=== PATIENT | male | born 1965 | race African-American/Black ===

== ENCOUNTER 2017-02-15 20:14 | Emergency (ER) | payer SELFPAY ==
[~2017-02-15] VITALS: Ht 175.3 cm; Wt 111.1 kg
[2017-02-15 20:29] VITALS: BP 175/86
--- NOTE | 2017-02-15 20:44 | PHYS DOC ---
Past Medical History Past Medical History: Diabetes-Type II Adult General Chief Complaint Chief Complaint: WOUND CHECK HPI HPI Patient is a 51 year old male with history of diabetes type 2 who presents today complaining of an infected wound on the left third toe that he noted 2 or 3 days ago after he cut his toe. Patient denies any fever. He states is on diabetic medicines and his blood glucose runs in the 140s. Patient has neuropathy and cannot feel his toes. Review of Systems Review of Systems Constitutional: Denies fever or chills [] Eyes: Denies change in visual acuity, redness, or eye pain [] HENT: Denies nasal congestion or sore throat [] Respiratory: Denies cough or shortness of breath [] Cardiovascular: No additional information not addressed in HPI [] GI: Denies abdominal pain, nausea, vomiting, bloody stools or diarrhea [] : Denies dysuria or hematuria [] Musculoskeletal: Denies back pain or joint pain [] Integument: Infected left third toe Neurologic: Denies headache, focal weakness or sensory changes [] All other systems were reviewed and found to be within normal limits, except as documented in this note. Current Medications Current Medications Current Medications Medications (Trade) Dose Ordered Sig/Solomon Start Time Stop Time Status Last Admin Dose Admin Diphtheria/ Tetanus/Acell Pertussis (Boostrix) 0.5 ml ONCE ONCE 02/15/17 20:45 02/15/17 20:46 DC Allergies Allergies Allergies Coded Allergies Type Severity Reaction Last Updated Verified No Known Drug Allergies 02/15/17 No Physical Exam Physical Exam Constitutional: Well developed, well nourished, no acute distress, non-toxic appearance. [] HENT: Normocephalic, atraumatic, bilateral external ears normal, oropharynx moist, no oral exudates, nose normal. [] Eyes: PERRLA, EOMI, conjunctiva normal, no discharge. [] Neck: Normal range of motion, no tenderness, supple, no stridor. [] Cardiovascular:Heart rate regular rhythm, no murmur [] Lungs & Thorax: Bilateral breath sounds clear to auscultation [] Abdomen: Bowel sounds normal, soft, no tenderness, no masses, no pulsatile masses. [] Skin: Warm, patient has a tiny 0.5X0.5 wound under the left third toe, the wound appears infected. It is yellow with trace erythema and no drainage. Patient has neuropathy and cannot feel his toes. +2 left pedal pulse. Back: No tenderness, no CVA tenderness. [] Extremities: No tenderness, no cyanosis, no clubbing, ROM intact, no edema. [] Neurologic: Alert and oriented X 3, normal motor function, normal sensory function, no focal deficits noted. [] Psychologic: Affect normal, judgement normal, mood normal. [] EKG EKG [] Radiology/Procedures Radiology/Procedures [] Course & Med Decision Making Course & Med Decision Making Pertinent Labs and Imaging studies reviewed. (See chart for details) Patient has infected left third toe. He has history of diabetes. This is a stage I wound. Patient was discharged on clindamycin. He was instructed to keep the wound clean and dry. I recommended he contact his PCP and set up a follow- up appointment in 1-3 days. He was given tetanus in the ED. Dragon Disclaimer Dragon Disclaimer This electronic medical record was generated, in whole or in part, using a voice recognition dictation system. Departure Departure Impression: Primary Impression: Toe infection Disposition: 01 HOME, SELF-CARE Condition: STABLE Referrals: [facility] (PCP) follow up in 1-3 days Patient Instructions: Skin Infections Additional Instructions: You were seen for an infected left third toe. Please complete your antibiotics. Contact your own doctor and follow-up in 1-3 days. Return to the emergency room if symptoms worsen. Scripts Clindamycin Hcl (CLINDAMYCIN HCL) 150 Mg Capsule 3 CAP PO TID, #90 CAP Prov: DANISH COLORADO APRN 02/15/17 DANISH COLORADO APRN Feb 15, 2017 20:44
[2017-02-15] MEDS ORDERED: DIPHTH,PERTUSS(ACELL),TET TOX 0.5 ML DISP.SYRIN. VAX IM ONE (20:45)
[2017-02-15] MEDS ORDERED: CLIN150C14 PO (20:52)
== END 2017-02-15 20:59 | disposition home or self-care (01) ==
LOC: ER 20:14
DX: L08.89 Other specified local infections of the skin and subcutaneous tissue (principal); E11.9 Type 2 diabetes mellitus without complications
CPT/HCPCS: 90471; 90715; 99283-25

== ENCOUNTER 2017-09-20 10:05 | Inpatient (IN) | payer OTHER ==
[2017-09-20 10:39] LABS: ADD MAN DIFF? NO
[2017-09-20 10:41] LABS: BASO # 0.1 x10^3/uL (0.0-0.2); BASO % 1 % (0-3); EOS # 0.5 x10^3/uL (0.0-0.7); EOS % 6 % (0-3); HEMATOCRIT 21.8 % (39.0-53.0); HEMOGLOBIN 7.5 g/dL (13.0-17.5); LYMPH # 0.6 x10^3/uL (1.0-4.8); LYMPH % 7 % (24-48); MEAN CORPUSCULAR HEMOGLOBIN 31 pg (25-35); MEAN CORPUSCULAR HGB CONC 34 g/dL (31-37); MEAN CORPUSCULAR VOLUME 91 fL (79-100); MONO # 0.5 x10^3/uL (0.0-1.1); MONO % 6 % (0-9); NEUT # 6.5 x10^3uL (1.8-7.7); NEUT % 80 % (31-73); PLATELET COUNT 244 x10^3/uL (140-400); RED BLOOD COUNT 2.41 x10^6/uL (4.30-5.70); RED CELL DISTRIBUTION WIDTH 18.6 % (11.5-14.5); WHITE BLOOD COUNT 8.1 x10^3/uL (4.0-11.0)
[2017-09-20 10:57] LABS: ANION GAP 10 (6-14); BLOOD UREA NITROGEN 90 mg/dL (8-26); BUN/CREATININE RATIO 16 (6-20); CARBON DIOXIDE 26 mmol/L (21-32); CHLORIDE 103 mmol/L (98-107); CREATININE 5.6 mg/dL (0.7-1.3); GLUCOSE 151 mg/dL (70-99); POTASSIUM 4.7 mmol/L (3.5-5.1); SODIUM 139 mmol/L (136-145)
[2017-09-20 11:00] LABS: ALBUMIN 3.2 g/dL (3.4-5.0); ALBUMIN/GLOBULIN RATIO 0.6 (1.0-1.7); ALK PHOS 104 U/L (46-116); ALT (SGPT) 28 U/L (16-63); AST (SGOT) 22 U/L (15-37); TOTAL BILIRUBIN 0.6 mg/dL (0.2-1.0); TOTAL PROTEIN 8.5 g/dL (6.4-8.2)
[2017-09-20] MEDS ORDERED: ACETAMINOPHEN 325 MG TABLET. PO ×2 (11:15→15:30)
[2017-09-20] MEDS ORDERED: fentaNYL PF VIAL 100 MCG/2 ML VIAL IV (11:15)
[2017-09-20] MEDS ORDERED: ONDANSETRON PF 4 MG/2 ML VIAL. IV ×2 (11:15→15:30)
[2017-09-20 14:02] LABS: POC GLUCOSE 132 mg/dL (70-99)
[2017-09-20] MEDS ORDERED: IV NORMAL SALINE 1000ML BAG 1,000 ML IV ×2 (14:24)
[2017-09-20] MEDS ORDERED: DIALYSIS PATIENT. MC ×2 (14:30)
[2017-09-20] MEDS ORDERED: traMADol 50 MG TABLET PO (15:30)
[2017-09-20] MEDS ORDERED: hydrALAZINE 20 MG/ML VIAL. IVP (15:30)
[2017-09-20] MEDS ORDERED: DOCUSATE SODIUM 100 MG CAPSULE. PO (15:30)
[2017-09-20] MEDS ORDERED: MORPHINE SULFATE 2 MG/ML DISP.SYRIN. IV (15:30)
[2017-09-20 16:32] LABS: HEPATITIS B SURFACE AG Nonreactive (Nonreactive)
[2017-09-20 16:44] LABS: HEPATITIS B SURFACE AB Nonreactive
[2017-09-20 18:15] LABS: TROPONINI < 0.017 ng/mL (0.000-0.055)
[2017-09-20 20:22] LABS: POC GLUCOSE 82 mg/dL (70-99)
[2017-09-20] MEDS: FUROSEMIDE 80 MG TABLET. PO (21:13)
[2017-09-20] MEDS: CALCIUM ACETATE 667 MG CAPSULE PO (21:13)
[2017-09-20] MEDS: CARVEDILOL 12.5 MG TABLET. PO (21:14)
[2017-09-20] MEDS: FERROUS SULFATE 325 MG TABLET. PO (21:14)
[2017-09-20] MEDS: ATORVASTATIN CALCIUM 20 MG TABLET PO (21:14)
[2017-09-20] MEDS: FOLIC ACID 1 MG TABLET. PO (21:14)
[2017-09-21 07:13] LABS: POC GLUCOSE 107 mg/dL (70-99)
[2017-09-21] MEDS: FERROUS SULFATE 325 MG TABLET. PO (08:00)
[2017-09-21] MEDS: CARVEDILOL 12.5 MG TABLET. PO (08:41)
[2017-09-21] MEDS: FUROSEMIDE 80 MG TABLET. PO (08:41)
[2017-09-21] MEDS: CALCIUM ACETATE 667 MG CAPSULE PO ×2 (08:41→11:50)
[2017-09-21] MEDS: FOLIC ACID 1 MG TABLET. PO (08:41)
[2017-09-27] MEDS ORDERED: cloNIDine TTS-1 1 PATCH PATCH.TDWK TD (09:00)
== END 2017-09-21 16:40 | disposition home or self-care (01) | DRG 291 ==
LOC: ER 10:05 → 5 SOUTH 11:07
PROC: 5A1D70Z Performance of Urinary Filtration, Intermittent, Less than 6 Hours Per Day (ICD-10-PCS; principal; 2017-09-20)
DX: I13.2 Hypertensive heart and chronic kidney disease with heart failure and with stage 5 chronic kidney disease, or end stage renal disease (principal); N18.6 End stage renal disease; E11.40 Type 2 diabetes mellitus with diabetic neuropathy, unspecified; D64.9 Anemia, unspecified; E11.22 Type 2 diabetes mellitus with diabetic chronic kidney disease; K21.9 Gastro-esophageal reflux disease without esophagitis; E21.3 Hyperparathyroidism, unspecified; I50.9 Heart failure, unspecified; E11.69 Type 2 diabetes mellitus with other specified complication; E11.42 Type 2 diabetes mellitus with diabetic polyneuropathy; D47.2 Monoclonal gammopathy; Z90.81 Acquired absence of spleen; Z89.411 Acquired absence of right great toe; Z89.432 Acquired absence of left foot; Z79.4 Long term (current) use of insulin; Z98.49 Cataract extraction status, unspecified eye; Z99.2 Dependence on renal dialysis; Z83.3 Family history of diabetes mellitus; Z82.49 Family history of ischemic heart disease and other diseases of the circulatory system
CPT/HCPCS: 36415; 80053; 82962; 84484; 85025; 86706; 87340; 99285; 99285-25

== ENCOUNTER 2017-11-22 21:08 | Inpatient (IN) | payer OTHER ==
[~2017-11-22] VITALS: Ht 175.3 cm; Wt 96.2 kg
[~2017-11-22 21:08] MED LIST: ALLO300T PO; ASCO500T3 PO; ATOR20TA PO; CARV25TA2 PO; CLIN150C14 PO; CLON0.1T PO; CLON1PAT9 TD; Calcium Acetate PO; ERGO500027 PO; FERR325T14 PO; FOLI1TAB16 PO; FURO80TA3 PO; INSU100V8 SQ; LEVO500T59 PO; LISI-130 PO; NIFE60TA PO; POTA20TA82 PO; TADA5TAB PO
--- NOTE | 2017-11-22 22:15 | PHYS DOC ---
Past Medical History Past Medical History: Anemia, Diabetes-Type II, Renal Disease Additional Past Medical Histor: CATARACTS, NEUROPATHY, ERECTILE DYSFUNCTION, ELLIPTOCYTOSIS Past Surgical History: Splenectomy, Other Additional Past Surgical Histo: DIALYSIS SHUNT RIGHT CHEST, R GREAT TOE AMP, PARTIAL L FOOT AMP Alcohol Use: None Drug Use: None Adult General Chief Complaint Chief Complaint: WEAKNESS/GENERALIZED HPI HPI Patient is a 52 year old male with history of anemia, end-stage renal disease, last dialyzed on Tuesday last week who presents today with 2 complaints. Patient states he received a call from his doctor's office who informed him his hemoglobin was 5. Patient is here for transfusion. Patient is also complaining of infection to the right second toe. Patient states he noted drainage from the toe for couple days. Patient denies any fever. Review of Systems Review of Systems Constitutional: Denies fever or chills [] Eyes: Denies change in visual acuity, redness, or eye pain [] HENT: Denies nasal congestion or sore throat [] Respiratory: Denies cough or shortness of breath [] Cardiovascular: Reports anemia. No additional information not addressed in HPI [ ] GI: Denies abdominal pain, nausea, vomiting, bloody stools or diarrhea [] : Denies dysuria or hematuria [] Musculoskeletal: Denies back pain or joint pain [] Integument: Reports infection to the right second toe. Neurologic: Denies headache, focal weakness or sensory changes [] All other systems were reviewed and found to be within normal limits, except as documented in this note. Allergies Allergies Allergies Coded Allergies Type Severity Reaction Last Updated Verified No Known Drug Allergies 09/05/17 No Physical Exam Physical Exam Constitutional: Well developed, well nourished, no acute distress, non-toxic appearance. [] HENT: Normocephalic, atraumatic, bilateral external ears normal, oropharynx moist, no oral exudates, nose normal. [] Eyes: PERRLA, EOMI, conjunctiva normal, no discharge. [] Neck: Normal range of motion, no tenderness, supple, no stridor. [] Cardiovascular:Heart rate regular rhythm, no murmur [] Lungs & Thorax: Bilateral breath sounds clear to auscultation [] Abdomen: Bowel sounds normal, soft, no tenderness, no masses, no pulsatile masses. [] Skin: Warm, dry, right great toe is amputated, right second toe tip with an open wound approximately 1 x 1 cm the center is erythematous. There is surrounding yellowness to the tip of the toe. No drainage. there is another skin tear approx. 1x1cm to the side of the left second toe. No warmth to the toe. Could be chronic toe ulcer Back: No tenderness, no CVA tenderness. [] Extremities: No tenderness, no cyanosis, no clubbing, ROM intact, no edema. [] Neurologic: Alert and oriented X 3, normal motor function, normal sensory function, no focal deficits noted. [] Psychologic: Affect normal, judgement normal, mood normal. [] Current Patient Data Vital Signs Vital Signs Date Time Temp Pulse Resp B/P (MAP) Pulse Ox O2 Delivery O2 Flow Rate FiO2 11/22/17 21:50 99.4 81 16 119/56 (77) 100 Nasal Cannula 2.0 99.4 Lab Values Laboratory Tests Test 11/22/17 21:55 White Blood Count 6.9 x10^3/uL (4.0-11.0) Red Blood Count 1.87 x10^6/uL (4.30-5.70) L Hemoglobin 5.9 g/dL (13.0-17.5) *L Hematocrit 17.3 % (39.0-53.0) *L Mean Corpuscular Volume 92 fL (79-100) Mean Corpuscular Hemoglobin 31 pg (25-35) Mean Corpuscular Hemoglobin Concent 34 g/dL (31-37) Red Cell Distribution Width 27.1 % (11.5-14.5) H Platelet Count 292 x10^3/uL (140-400) Neutrophils (%) (Auto) 74 % (31-73) H Lymphocytes (%) (Auto) 9 % (24-48) L Monocytes (%) (Auto) 10 % (0-9) H Eosinophils (%) (Auto) 5 % (0-3) H Basophils (%) (Auto) 1 % (0-3) Neutrophils # (Auto) 5.2 x10^3uL (1.8-7.7) Lymphocytes # (Auto) 0.7 x10^3/uL (1.0-4.8) L Monocytes # (Auto) 0.7 x10^3/uL (0.0-1.1) Eosinophils # (Auto) 0.4 x10^3/uL (0.0-0.7) Basophils # (Auto) 0.1 x10^3/uL (0.0-0.2) Platelet Estimate Adequate (ADEQUATE) Giant Platelets Few Polychromasia Slight Anisocytosis Marked Microcytosis Slight Macrocytosis Slight Tear Drop Cells Few Ovalocytes Few Schistocytes Occ Erythrocyte Sedimentation Rate 41 (0-15) H Sodium Level 144 mmol/L (136-145) Potassium Level 3.8 mmol/L (3.5-5.1) Chloride Level 109 mmol/L (98-107) H Carbon Dioxide Level 20 mmol/L (21-32) L Anion Gap 15 (6-14) H Blood Urea Nitrogen 71 mg/dL (8-26) H Creatinine 6.3 mg/dL (0.7-1.3) H Estimated GFR (Cockcroft-Gault) 11.4 BUN/Creatinine Ratio 11 (6-20) Glucose Level 107 mg/dL (70-99) H Calcium Level 6.5 mg/dL (8.5-10.1) L Total Bilirubin 0.6 mg/dL (0.2-1.0) Aspartate Amino Transferase (AST) 23 U/L (15-37) Alanine Aminotransferase (ALT) 35 U/L (16-63) Alkaline Phosphatase 94 U/L (46-116) C-Reactive Protein, Quantitative 15.3 mg/L (0-3.3) H Total Protein 8.1 g/dL (6.4-8.2) Albumin 3.5 g/dL (3.4-5.0) Albumin/Globulin Ratio 0.8 (1.0-1.7) L Laboratory Tests 11/22/17 21:55 Laboratory Tests 11/22/17 21:55 EKG EKG [] Radiology/Procedures Radiology/Procedures []PROCEDURE: FOOT RIGHT 3V Indication:INFECTED 2ND DIGIT OF RIGHT FOOT TECHNIQUE: 3 views of the right foot COMPARISON:None FINDINGS: Status post partial amputation of the first metatarsal. No acute fracture or dislocation. No periosteal reaction or cortical erosion. No soft tissue emphysema. Mild midfoot arthritis. Basilar calcifications suggesting atherosclerotic disease. IMPRESSION: 1. No radiographic evidence of acute osteoarthritis. 2. No soft tissue emphysema. Electronically signed by: Kal Hirsch DO (11/22/2017 10:52 PM) [facility] DICTATED and SIGNED BY: KAL HIRSCH DO DATE: 11/22/17 6185 Course & Med Decision Making Course & Med Decision Making Pertinent Labs and Imaging studies reviewed. (See chart for details) This is a 52-year-old male patient with history of anemia, end-stage renal's disease, presenting today complaining of low hemoglobin 5. Also complaining of possible infection to the right second toe. CBC with a normal WBC, hemoglobin 5.8, hematocrit 17.3, potassium 3.8, creatinine 6.3 BUN 71. Right foot x-rays interpreted by radiologist were negative for any acute findings. 2 units of blood ordered for transfusion. Consulted with Dr. Liang who accepted patient for admission. Consulted also placed for cost and risk analysis manager. Dragon Disclaimer Dragon Disclaimer This electronic medical record was generated, in whole or in part, using a voice recognition dictation system. Departure Departure Impression: Primary Impression: ESRD (end stage renal disease) Additional Impressions: Anemia Toe infection Disposition: 09 ADMITTED INPATIENT Condition: STABLE Referrals: NO PCP (PCP) Problem Qualifiers Additional Impressions: Anemia Anemia type: unspecified type Qualified Codes: D64.9 - Anemia, unspecified DANISH COLORADO CONTROL TECHNICIAN Nov 22, 2017 22:15
[2017-11-22 22:20] LABS: BASO # 0.1 x10^3/uL (0.0-0.2); BASO % 1 % (0-3); EOS # 0.4 x10^3/uL (0.0-0.7); EOS % 5 % (0-3); LYMPH # 0.7 x10^3/uL (1.0-4.8); LYMPH % 9 % (24-48); MEAN CORPUSCULAR HEMOGLOBIN 31 pg (25-35); MEAN CORPUSCULAR HGB CONC 34 g/dL (31-37); MEAN CORPUSCULAR VOLUME 92 fL (79-100); MONO # 0.7 x10^3/uL (0.0-1.1); MONO % 10 % (0-9); NEUT # 5.2 x10^3uL (1.8-7.7); NEUT % 74 % (31-73); PLATELET COUNT 292 x10^3/uL (140-400); RED BLOOD COUNT 1.87 x10^6/uL (4.30-5.70); RED CELL DISTRIBUTION WIDTH 27.1 % (11.5-14.5); WHITE BLOOD COUNT 6.9 x10^3/uL (4.0-11.0)
[2017-11-22 22:23] LABS: HEMATOCRIT 17.3 % (39.0-53.0); HEMOGLOBIN 5.9 g/dL (13.0-17.5)
[2017-11-22 22:36] LABS: CALCIUM 6.5 mg/dL (8.5-10.1); CREATININE 6.3 mg/dL (0.7-1.3); GFR 11.4; POTASSIUM 3.8 mmol/L (3.5-5.1)
[2017-11-22 22:42] LABS: ALBUMIN 3.5 g/dL (3.4-5.0); ALBUMIN/GLOBULIN RATIO 0.8 (1.0-1.7); C-REACTIVE PROTEIN 15.3 mg/L (0-3.3); TOTAL BILIRUBIN 0.6 mg/dL (0.2-1.0); TOTAL PROTEIN 8.1 g/dL (6.4-8.2)
--- NOTE | 2017-11-22 22:56 | RAD ---
Indication:INFECTED 2ND DIGIT OF RIGHT FOOT TECHNIQUE: 3 views of the right foot COMPARISON:None FINDINGS: Status post partial amputation of the first metatarsal. No acute fracture or dislocation. No periosteal reaction or cortical erosion. No soft tissue emphysema. Mild midfoot arthritis. Basilar calcifications suggesting atherosclerotic disease. IMPRESSION: 1. No radiographic evidence of acute osteoarthritis. 2. No soft tissue emphysema. Electronically signed by: Kal Guillen DO (11/22/2017 10:52 PM) [facility]
[2017-11-22 22:57] LABS: ANISOCYTOSIS MARKED; MICROCYTOSIS SLIGHT; PLT ESTIMATE ADEQUATE (ADEQUATE); POLYCHROMASIA SLIGHT
[2017-11-22 22:58] LABS: OVALOCYTES FEW; SCHISTOCYTES OCC; TEAR DROP CELLS FEW
[2017-11-23] VITALS (17 sets, daily range): BP systolic 123–170; BP diastolic 64–86
[2017-11-23] MEDS ORDERED: MORPHINE SULFATE 4 MG/ML VIAL. IV PRN (00:30)
[2017-11-23] MEDS ORDERED: ONDANSETRON PF 4 MG/2 ML VIAL. IV PRN (00:30)
[2017-11-23 06:43] LABS: HEMOGLOBIN 6.6 g/dL (13.0-17.5)
[2017-11-23] MEDS: ASCORBIC ACID 500 MG TABLET PO SCH (08:50)
[2017-11-23] MEDS: FUROSEMIDE 80 MG TABLET. PO SCH ×2 (08:50→17:09)
[2017-11-23] MEDS: FERROUS SULFATE 325 MG TABLET. PO SCH ×2 (08:50→20:49)
[2017-11-23] MEDS: CALCIUM ACETATE 667 MG CAPSULE PO SCH ×3 (08:50→17:09)
[2017-11-23] MEDS: FOLIC ACID 1 MG TABLET. PO SCH (08:50)
[2017-11-23] MEDS: CARVEDILOL 12.5 MG TABLET. PO SCH ×2 (08:51→17:09)
--- NOTE | 2017-11-23 12:21 | PDOC1 ---
History and Physical Date of Admission Date of Admission DATE: 11/23/17 TIME: 12:20 Source Source: Chart review, Patient History of Present Illness History of Present Illness Mr. Kang, is a 52 year old male admit with right 2nd toe pain and small wound , and was sent to the ER by hisrenal doctor for anemia, Hgb 5 he has felt tired and weak, and has felt some dizzy when moving to standing position for the past few weeks. He last dialyzed on his toe has been painful despite chronic neuropathy, and he has notices serous drainage from the end of the toe for a few days Past Medical History Past Medical History history of anemia, end-stage renal disease, Cardiovascular: HTN CENTRAL NERVOUS SYSTEM: Periperal neuropathy GI: GERD Heme/Onc: Anemia NOS Renal/: Chronic renal insuff Endocrine: Diabetes, Hyperparathyroidism Past Surgical History Past Surgical History: Cataract Removal, Other Family History Family History: Diabetes, Hypertension Social History Smoke: No ALCOHOL: none Drugs: None Current Problem List Problem List Problems Medical Problems: (1) Toe infection Status: Acute Current Medications Current Medications Current Medications Ondansetron HCl (Zofran) 4 mg PRN Q8HRS PRN IV NAUSEA/VOMITING 1ST CHOICE; Start 11/23/17 at 00:30; Stop 11/24/17 at 00:29 Morphine Sulfate (Morphine Sulfate) 4 mg PRN Q2HR PRN IV SEVERE PAIN; Start at 00:30; Stop 11/24/17 at 00:29 Ascorbic Acid (Vitamin C) 500 mg DAILY PO Last administered on 11/23/17at 08:50 ; Start 11/23/17 at 09:00 Atorvastatin Calcium (Lipitor) 20 mg QHS PO ; Start 11/23/17 at 21:00 Ferrous Sulfate (Feosol) 325 mg BID PO Last administered on 11/23/17at 08:50; Start 11/23/17 at 09:00 Folic Acid (Folic Acid) 1 mg DAILY PO Last administered on 11/23/17at 08:50; Start 11/23/17 at 09:00 Furosemide (Lasix) 80 mg BID94 PO Last administered on 11/23/17at 08:50; Start 11/23/17 at 09:00 Carvedilol (Coreg) 50 mg BIDWMEALS PO Last administered on 11/23/17at 08:51; Start 11/23/17 at 08:00 Nifedipine (Procardia Xl) 60 mg DAILY PO Last administered on 11/23/17at 08:51; Start 11/23/17 at 09:00 Calcium Acetate (Phoslo) 1,334 mg TIDWMEALS PO Last administered on 11/23/17at 12:04; Start 11/23/17 at 08:00 Active Scripts Active [Calcium Acetate] 667 MG Capsule 1,334 Mg PO TIDWMEALS 30 Days Reported Ascorbic Acid 500 Mg Tablet 500 Mg PO Catapres-Tts 1 (Clonidine) 1 Each Patch.tdwk 1 Each TD QTU Lipitor (Atorvastatin Calcium) 20 Mg Tablet 20 Mg PO DAILY Carvedilol 25 Mg Tablet 50 Mg PO BIDWMEALS Vitamin D2 (Ergocalciferol (Vitamin D2)) 50,000 Unit Capsule 50,000 Unit PO QSU Ferrous Sulfate 325 Mg Tablet 325 Mg PO BID Folic Acid 1 Mg Tablet 1 Mg PO DAILY Procardia Xl (Nifedipine) 60 Mg Tab.er.24 60 Mg PO DAILY Furosemide 80 Mg Tablet 80 Mg PO BID Allergies Allergies: Coded Allergies: No Known Drug Allergies (Unverified , 09/05/17) ROS General: YES: Chills, Fatigue; No: Night Sweats, Malaise, Appetite, Other PSYCHOLOGICAL ROS: YES: Sleep disturbances; No: Anxiety, Behavioral Disorder, Concentration difficultie, Decreased libido , Depression, Disorientation, Hallucinations, Hostility, Irritablity, Memory difficulties, Mood Swings, Obsessive thoughts, Other Eyes: No Blurry vision, No Decreased vision, No Double vision, No Dry eyes, No Excessive tearing, No Eye Pain, No Itchy Eyes, No Loss of vision, No Photophobia , No Scotomata, No Uses contacts, No Uses glasses, No Other HEENT: No: Heacaches, Visual Changes, Hearing change, Nasal congestion, Nasal discharge, Oral lesions, Sinus pain, Sore Throat, Epistaxis, Sneezing, Snoring, Tinnitus, Vertigo, Vocal changes, Other Respiratory: No: Cough, Hemoptysis, Orthopnea, Pleuritic Pain, Shortness of breath, SOB with excertion, Sputum Changes, Stridor, Tachypnea, Wheezing, Other Cardiovascular: No Chest Pain, No Palpitations, No Orthopnea, No Paroxysmal Noc. Dyspnea, No Edema, No Lt Headedness, No Other Gastrointestinal: No Nausea, No Vomiting, No Abdominal Pain, No Diarrhea, No Constipation, No Melena, No Hematochezia, No Other Genitourinary: No Dysuria, No Frequency, No Incontinence, No Hematuria, No Retention, No Discharge, No Urgency, No Pain, No Flank Pain, No Other, No , No , No , No , No , No , No Musculoskeletal: Yes Joint Pain, Yes Joint Stiffness, Yes Muscular Weakness Neurological: No Behavorial Changes, No Bowel/Bladder ControlChng, No Confusion , No Dizziness, No Gait Disturbance, No Headaches, No Impaired Coord/balance, No Memory Loss, No Numbness/Tingling, No Seizures, No Speech Problems, No Tremors, No Visual Changes, No Weakness, No Other Skin: Yes Dry Skin; No Eczema, No Hair Changes, No Lumps, No Mole Changes, No Mottling, No Nail Changes, No Pruritus, No Rash, No Skin Lesion Changes, No Other, No Acne Physical Exam General: Alert, Oriented X3, Cooperative HEENT: Atraumatic, PERRLA Lungs: Clear to auscultation, Normal air movement Heart: S1S2, no gallops, no murmurs Extremities: No clubbing, Other (right second toe with wound on the tip of the toe, no surrouding erythema) Skin: No breakdown Neuro: Normal speech, Normal tone, Other (poor sensation to toes, has neuropathy) Psych/Mental Status: Mental status NL, Mood NL Vitals Vitals Vital Signs Date Time Temp Pulse Resp B/P (MAP) Pulse Ox O2 Delivery O2 Flow Rate FiO2 11/23/17 11:20 97.9 77 16 132/70 97.9 11/23/17 11:00 92 Room Air 11/23/17 08:00 2.0 Labs Labs Laboratory Tests Test 11/22/17 21:55 11/22/17 22:49 11/23/17 05:05 White Blood Count 6.9 x10^3/uL (4.0-11.0) Red Blood Count 1.87 x10^6/uL (4.30-5.70) Hemoglobin 5.9 g/dL (13.0-17.5) 6.6 g/dL (13.0-17.5) Hematocrit 17.3 % (39.0-53.0) 19.0 % (39.0-53.0) Mean Corpuscular Volume 92 fL (79-100) Mean Corpuscular Hemoglobin 31 pg (25-35) Mean Corpuscular Hemoglobin Concent 34 g/dL (31-37) 35 g/dL (31-37) Red Cell Distribution Width 27.1 % (11.5-14.5) Platelet Count 292 x10^3/uL (140-400) Neutrophils (%) (Auto) 74 % (31-73) Lymphocytes (%) (Auto) 9 % (24-48) Monocytes (%) (Auto) 10 % (0-9) Eosinophils (%) (Auto) 5 % (0-3) Basophils (%) (Auto) 1 % (0-3) Neutrophils # (Auto) 5.2 x10^3uL (1.8-7.7) Lymphocytes # (Auto) 0.7 x10^3/uL (1.0-4.8) Monocytes # (Auto) 0.7 x10^3/uL (0.0-1.1) Eosinophils # (Auto) 0.4 x10^3/uL (0.0-0.7) Basophils # (Auto) 0.1 x10^3/uL (0.0-0.2) Platelet Estimate Adequate (ADEQUATE) Giant Platelets Few Polychromasia Slight Anisocytosis Marked Microcytosis Slight Macrocytosis Slight Tear Drop Cells Few Ovalocytes Few Schistocytes Occ Erythrocyte Sedimentation Rate 41 (0-15) Sodium Level 144 mmol/L (136-145) Potassium Level 3.8 mmol/L (3.5-5.1) Chloride Level 109 mmol/L (98-107) Carbon Dioxide Level 20 mmol/L (21-32) Anion Gap 15 (6-14) Blood Urea Nitrogen 71 mg/dL (8-26) Creatinine 6.3 mg/dL (0.7-1.3) Estimated GFR (Cockcroft-Gault) 11.4 BUN/Creatinine Ratio 11 (6-20) Glucose Level 107 mg/dL (70-99) Calcium Level 6.5 mg/dL (8.5-10.1) Total Bilirubin 0.6 mg/dL (0.2-1.0) Aspartate Amino Transf (AST/SGOT) 23 U/L (15-37) Alanine Aminotransferase (ALT/SGPT) 35 U/L (16-63) Alkaline Phosphatase 94 U/L (46-116) C-Reactive Protein, Quantitative 15.3 mg/L (0-3.3) Total Protein 8.1 g/dL (6.4-8.2) Albumin 3.5 g/dL (3.4-5.0) Albumin/Globulin Ratio 0.8 (1.0-1.7) Lactic Acid Level 1.0 mmol/L (0.4-2.0) Laboratory Tests Test 11/22/17 21:55 11/22/17 22:49 11/23/17 05:05 White Blood Count 6.9 x10^3/uL (4.0-11.0) Red Blood Count 1.87 x10^6/uL (4.30-5.70) Hemoglobin 5.9 g/dL (13.0-17.5) 6.6 g/dL (13.0-17.5) Hematocrit 17.3 % (39.0-53.0) 19.0 % (39.0-53.0) Mean Corpuscular Volume 92 fL (79-100) Mean Corpuscular Hemoglobin 31 pg (25-35) Mean Corpuscular Hemoglobin Concent 34 g/dL (31-37) 35 g/dL (31-37) Red Cell Distribution Width 27.1 % (11.5-14.5) Platelet Count 292 x10^3/uL (140-400) Neutrophils (%) (Auto) 74 % (31-73) Lymphocytes (%) (Auto) 9 % (24-48) Monocytes (%) (Auto) 10 % (0-9) Eosinophils (%) (Auto) 5 % (0-3) Basophils (%) (Auto) 1 % (0-3) Neutrophils # (Auto) 5.2 x10^3uL (1.8-7.7) Lymphocytes # (Auto) 0.7 x10^3/uL (1.0-4.8) Monocytes # (Auto) 0.7 x10^3/uL (0.0-1.1) Eosinophils # (Auto) 0.4 x10^3/uL (0.0-0.7) Basophils # (Auto) 0.1 x10^3/uL (0.0-0.2) Platelet Estimate Adequate (ADEQUATE) Giant Platelets Few Polychromasia Slight Anisocytosis Marked Microcytosis Slight Macrocytosis Slight Tear Drop Cells Few Ovalocytes Few Schistocytes Occ Erythrocyte Sedimentation Rate 41 (0-15) Sodium Level 144 mmol/L (136-145) Potassium Level 3.8 mmol/L (3.5-5.1) Chloride Level 109 mmol/L (98-107) Carbon Dioxide Level 20 mmol/L (21-32) Anion Gap 15 (6-14) Blood Urea Nitrogen 71 mg/dL (8-26) Creatinine 6.3 mg/dL (0.7-1.3) Estimated GFR (Cockcroft-Gault) 11.4 BUN/Creatinine Ratio 11 (6-20) Glucose Level 107 mg/dL (70-99) Calcium Level 6.5 mg/dL (8.5-10.1) Total Bilirubin 0.6 mg/dL (0.2-1.0) Aspartate Amino Transf (AST/SGOT) 23 U/L (15-37) Alanine Aminotransferase (ALT/SGPT) 35 U/L (16-63) Alkaline Phosphatase 94 U/L (46-116) C-Reactive Protein, Quantitative 15.3 mg/L (0-3.3) Total Protein 8.1 g/dL (6.4-8.2) Albumin 3.5 g/dL (3.4-5.0) Albumin/Globulin Ratio 0.8 (1.0-1.7) Lactic Acid Level 1.0 mmol/L (0.4-2.0) VTE Prophylaxis Ordered VTE Prophylaxis Devices: Yes VTE Pharmacological Prophylaxi: No Assessment/Plan Assessment/Plan anemia symptomatic anemia, ellipsocytosis ESRD with anemia, now s/p 2 u PRBC Dm2, now off meds, diet controlled, has lost 40 lbs intentionally htn, chronic mild chronic diastolic CHF weakness and debility, acquired obesity, BMI 32 DIXON GARZA MD Nov 23, 2017 12:20
--- NOTE | 2017-11-23 13:12 | PDOC ---
Infectious Disease Note Vital Sign Vital Signs Vital Signs Date Time Temp Pulse Resp B/P (MAP) Pulse Ox O2 Delivery O2 Flow Rate FiO2 11/23/17 12:20 98.1 82 18 148/78 98.1 11/23/17 11:00 92 Room Air 11/23/17 08:00 2.0 Labs Lab Laboratory Tests Test 11/22/17 21:55 11/22/17 22:49 11/23/17 05:05 White Blood Count 6.9 x10^3/uL (4.0-11.0) Red Blood Count 1.87 x10^6/uL (4.30-5.70) Hemoglobin 5.9 g/dL (13.0-17.5) 6.6 g/dL (13.0-17.5) Hematocrit 17.3 % (39.0-53.0) 19.0 % (39.0-53.0) Mean Corpuscular Volume 92 fL (79-100) Mean Corpuscular Hemoglobin 31 pg (25-35) Mean Corpuscular Hemoglobin Concent 34 g/dL (31-37) 35 g/dL (31-37) Red Cell Distribution Width 27.1 % (11.5-14.5) Platelet Count 292 x10^3/uL (140-400) Neutrophils (%) (Auto) 74 % (31-73) Lymphocytes (%) (Auto) 9 % (24-48) Monocytes (%) (Auto) 10 % (0-9) Eosinophils (%) (Auto) 5 % (0-3) Basophils (%) (Auto) 1 % (0-3) Neutrophils # (Auto) 5.2 x10^3uL (1.8-7.7) Lymphocytes # (Auto) 0.7 x10^3/uL (1.0-4.8) Monocytes # (Auto) 0.7 x10^3/uL (0.0-1.1) Eosinophils # (Auto) 0.4 x10^3/uL (0.0-0.7) Basophils # (Auto) 0.1 x10^3/uL (0.0-0.2) Platelet Estimate Adequate (ADEQUATE) Giant Platelets Few Polychromasia Slight Anisocytosis Marked Microcytosis Slight Macrocytosis Slight Tear Drop Cells Few Ovalocytes Few Schistocytes Occ Erythrocyte Sedimentation Rate 41 (0-15) Sodium Level 144 mmol/L (136-145) Potassium Level 3.8 mmol/L (3.5-5.1) Chloride Level 109 mmol/L (98-107) Carbon Dioxide Level 20 mmol/L (21-32) Anion Gap 15 (6-14) Blood Urea Nitrogen 71 mg/dL (8-26) Creatinine 6.3 mg/dL (0.7-1.3) Estimated GFR (Cockcroft-Gault) 11.4 BUN/Creatinine Ratio 11 (6-20) Glucose Level 107 mg/dL (70-99) Calcium Level 6.5 mg/dL (8.5-10.1) Total Bilirubin 0.6 mg/dL (0.2-1.0) Aspartate Amino Transf (AST/SGOT) 23 U/L (15-37) Alanine Aminotransferase (ALT/SGPT) 35 U/L (16-63) Alkaline Phosphatase 94 U/L (46-116) C-Reactive Protein, Quantitative 15.3 mg/L (0-3.3) Total Protein 8.1 g/dL (6.4-8.2) Albumin 3.5 g/dL (3.4-5.0) Albumin/Globulin Ratio 0.8 (1.0-1.7) Lactic Acid Level 1.0 mmol/L (0.4-2.0) Objective Assessment Rt 2nd toe ulcer with infection ESRD Anemia DM HTN Plan Plan of Care culture vanc and zosyn partial amputation discussed, pt is going to think about it supportive care YANIRA GOMEZ MD Nov 23, 2017 13:12
--- NOTE | 2017-11-23 13:36 | PDOC ---
Provider Note Provider Note Vascular Surgery Consult dictated 52 year old male with right 2nd to diabetic wound, Dr Velasco will see his for this wound since he has done recent right 1st toe amputation and left TMA which have healed. He has good circulation to the right leg with palpable pulses and a recent duplex scan showing no stenosis. He has ESRD on dialysis through a permacath however does not want to consider arm access at this time. DAJUAN DREW MD Nov 23, 2017 13:35
--- NOTE | 2017-11-23 14:40 | PDOC2 ---
CONSULT Date of Consult Date of Consult DATE: 11/23/17 TIME: 14:30 Reason for Consult Reason for Consult: ESRD Identification/Chief Complaint Chief Complaint Was told in Dialysis Unit that he has very low Hgb Source Source: Chart review, Patient History of Present Illness Reason for Visit: Patient is a 52 year old AAM with history end-stage renal disease, he has prolonged Hospitalization earlier this year. He was Initiated on HD. He dialyzes at [facility]. He reports he has been going only On Tuesdays -his decision as he is working on transferring his care to - where he has his PCP. His last Dialysis was last Tuesday of last week . He denies any CP/SOB. He states he was Told in Dialysis Unit that his Hgb is Low and to got o ER, he states his PCP at was trying to arrange for Blood transfusion at . He is also complaining of drainage from the toe for couple days. Patient denies any fever. No N/V . No CP/SOB . Has Good UOP He had a BM Bx earlier this Month which was negative for MM as per Dr. Ricks Past Medical History Cardiovascular: HTN CENTRAL NERVOUS SYSTEM: Periperal neuropathy GI: GERD Heme/Onc: Anemia NOS Renal/: Chronic renal insuff Endocrine: Diabetes, Hyperparathyroidism Past Surgical History Past Surgical History: Cataract Removal, Other Family History Family History: Diabetes, Hypertension Social History No ALCOHOL: none Drugs: None Current Problem List Problem List Problems Medical Problems: (1) Toe infection Status: Acute Current Medications Current Medications Current Medications Ondansetron HCl (Zofran) 4 mg PRN Q8HRS PRN IV NAUSEA/VOMITING 1ST CHOICE; Start 11/23/17 at 00:30; Stop 11/24/17 at 00:29 Morphine Sulfate (Morphine Sulfate) 4 mg PRN Q2HR PRN IV SEVERE PAIN; Start at 00:30; Stop 11/24/17 at 00:29 Ascorbic Acid (Vitamin C) 500 mg DAILY PO Last administered on 11/23/17at 08:50 ; Start 11/23/17 at 09:00 Atorvastatin Calcium (Lipitor) 20 mg QHS PO ; Start 11/23/17 at 21:00 Ferrous Sulfate (Feosol) 325 mg BID PO Last administered on 11/23/17at 08:50; Start 11/23/17 at 09:00 Folic Acid (Folic Acid) 1 mg DAILY PO Last administered on 11/23/17at 08:50; Start 11/23/17 at 09:00 Furosemide (Lasix) 80 mg BID94 PO Last administered on 11/23/17at 08:50; Start 11/23/17 at 09:00 Carvedilol (Coreg) 50 mg BIDWMEALS PO Last administered on 11/23/17at 08:51; Start 11/23/17 at 08:00 Nifedipine (Procardia Xl) 60 mg DAILY PO Last administered on 11/23/17at 08:51; Start 11/23/17 at 09:00 Calcium Acetate (Phoslo) 1,334 mg TIDWMEALS PO Last administered on 11/23/17at 12:04; Start 11/23/17 at 08:00 Vancomycin HCl (Vanco Per Pharmacy) 1 each PRN DAILY PRN MC SEE COMMENTS; Start 11/23/17 at 13:15 Piperacillin Sod/ Tazobactam Sod 2.25 gm/Sodium Chloride 50 ml @ 100 mls/hr Q8HRS IV ; Start 11/23/17 at 14:00 Vancomycin HCl 2 gm/Sodium Chloride 500 ml @ 250 mls/hr 1X ONCE IV ; Start at 15:00; Stop 11/23/17 at 16:59 Active Scripts Active [Calcium Acetate] 667 MG Capsule 1,334 Mg PO TIDWMEALS 30 Days Reported Ascorbic Acid 500 Mg Tablet 500 Mg PO Catapres-Tts 1 (Clonidine) 1 Each Patch.tdwk 1 Each TD QTU Lipitor (Atorvastatin Calcium) 20 Mg Tablet 20 Mg PO DAILY Carvedilol 25 Mg Tablet 50 Mg PO BIDWMEALS Vitamin D2 (Ergocalciferol (Vitamin D2)) 50,000 Unit Capsule 50,000 Unit PO QSU Ferrous Sulfate 325 Mg Tablet 325 Mg PO BID Folic Acid 1 Mg Tablet 1 Mg PO DAILY Procardia Xl (Nifedipine) 60 Mg Tab.er.24 60 Mg PO DAILY Furosemide 80 Mg Tablet 80 Mg PO BID Allergies Allergies: Coded Allergies: No Known Drug Allergies (Unverified , 09/05/17) ROS Review of System As per HPI Physical Exam Physical Exam GEN: Awake, Oriented x [], In [] distress EYES: Vision Unchanged, Conjunctiva Normal EN: No EN Drainage, Mucous Membranes [] NECK: [] JVD, [] JVP, Supple, [] Thyromegaly CVS: S1S2, [] Murmur, No Gallop, No Rub,[] Edema RESP: [] Rales, [] Rhonchi,[] Acc. Muscle Use GI: BS + ve, NO Bruit, Non Tender, Non Distended : [] CVA tenderness, [] Suprapubic Tenderness Vital Signs Vital Signs Date Time Temp Pulse Resp B/P (MAP) Pulse Ox O2 Delivery O2 Flow Rate FiO2 11/23/17 13:20 98.1 77 18 152/82 98.1 11/23/17 11:00 92 Room Air 11/23/17 08:00 2.0 Assessment & Plan ESRD - On HDat [place] He is a TTS schedule, but has been going only once a week on his own Last HD was on Last Tuesday, He is asymptomatic, Lytes and acid base stable, Currenntly No Urgent need for Dialysis Will Out him tomorrow as per schedule Anemia- Recd PRBC CHAMBERLAIN as per primary BM Bx earlier this year- Negative for MM as per Dr. Ricks Rt 2nd toe ulcer with infection Hypocalcemia- Chronic Low Pt asymptomatic Discussed a/p with Pt and RN Labs Labs Laboratory Tests Test 11/22/17 21:55 11/22/17 22:49 11/23/17 05:05 White Blood Count 6.9 x10^3/uL (4.0-11.0) Red Blood Count 1.87 x10^6/uL (4.30-5.70) Hemoglobin 5.9 g/dL (13.0-17.5) 6.6 g/dL (13.0-17.5) Hematocrit 17.3 % (39.0-53.0) 19.0 % (39.0-53.0) Mean Corpuscular Volume 92 fL (79-100) Mean Corpuscular Hemoglobin 31 pg (25-35) Mean Corpuscular Hemoglobin Concent 34 g/dL (31-37) 35 g/dL (31-37) Red Cell Distribution Width 27.1 % (11.5-14.5) Platelet Count 292 x10^3/uL (140-400) Neutrophils (%) (Auto) 74 % (31-73) Lymphocytes (%) (Auto) 9 % (24-48) Monocytes (%) (Auto) 10 % (0-9) Eosinophils (%) (Auto) 5 % (0-3) Basophils (%) (Auto) 1 % (0-3) Neutrophils # (Auto) 5.2 x10^3uL (1.8-7.7) Lymphocytes # (Auto) 0.7 x10^3/uL (1.0-4.8) Monocytes # (Auto) 0.7 x10^3/uL (0.0-1.1) Eosinophils # (Auto) 0.4 x10^3/uL (0.0-0.7) Basophils # (Auto) 0.1 x10^3/uL (0.0-0.2) Platelet Estimate Adequate (ADEQUATE) Giant Platelets Few Polychromasia Slight Anisocytosis Marked Microcytosis Slight Macrocytosis Slight Tear Drop Cells Few Ovalocytes Few Schistocytes Occ Erythrocyte Sedimentation Rate 41 (0-15) Sodium Level 144 mmol/L (136-145) Potassium Level 3.8 mmol/L (3.5-5.1) Chloride Level 109 mmol/L (98-107) Carbon Dioxide Level 20 mmol/L (21-32) Anion Gap 15 (6-14) Blood Urea Nitrogen 71 mg/dL (8-26) Creatinine 6.3 mg/dL (0.7-1.3) Estimated GFR (Cockcroft-Gault) 11.4 BUN/Creatinine Ratio 11 (6-20) Glucose Level 107 mg/dL (70-99) Calcium Level 6.5 mg/dL (8.5-10.1) Total Bilirubin 0.6 mg/dL (0.2-1.0) Aspartate Amino Transf (AST/SGOT) 23 U/L (15-37) Alanine Aminotransferase (ALT/SGPT) 35 U/L (16-63) Alkaline Phosphatase 94 U/L (46-116) C-Reactive Protein, Quantitative 15.3 mg/L (0-3.3) Total Protein 8.1 g/dL (6.4-8.2) Albumin 3.5 g/dL (3.4-5.0) Albumin/Globulin Ratio 0.8 (1.0-1.7) Lactic Acid Level 1.0 mmol/L (0.4-2.0) Laboratory Tests Test 11/22/17 21:55 11/22/17 22:49 11/23/17 05:05 White Blood Count 6.9 x10^3/uL (4.0-11.0) Red Blood Count 1.87 x10^6/uL (4.30-5.70) Hemoglobin 5.9 g/dL (13.0-17.5) 6.6 g/dL (13.0-17.5) Hematocrit 17.3 % (39.0-53.0) 19.0 % (39.0-53.0) Mean Corpuscular Volume 92 fL (79-100) Mean Corpuscular Hemoglobin 31 pg (25-35) Mean Corpuscular Hemoglobin Concent 34 g/dL (31-37) 35 g/dL (31-37) Red Cell Distribution Width 27.1 % (11.5-14.5) Platelet Count 292 x10^3/uL (140-400) Neutrophils (%) (Auto) 74 % (31-73) Lymphocytes (%) (Auto) 9 % (24-48) Monocytes (%) (Auto) 10 % (0-9) Eosinophils (%) (Auto) 5 % (0-3) Basophils (%) (Auto) 1 % (0-3) Neutrophils # (Auto) 5.2 x10^3uL (1.8-7.7) Lymphocytes # (Auto) 0.7 x10^3/uL (1.0-4.8) Monocytes # (Auto) 0.7 x10^3/uL (0.0-1.1) Eosinophils # (Auto) 0.4 x10^3/uL (0.0-0.7) Basophils # (Auto) 0.1 x10^3/uL (0.0-0.2) Platelet Estimate Adequate (ADEQUATE) Giant Platelets Few Polychromasia Slight Anisocytosis Marked Microcytosis Slight Macrocytosis Slight Tear Drop Cells Few Ovalocytes Few Schistocytes Occ Erythrocyte Sedimentation Rate 41 (0-15) Sodium Level 144 mmol/L (136-145) Potassium Level 3.8 mmol/L (3.5-5.1) Chloride Level 109 mmol/L (98-107) Carbon Dioxide Level 20 mmol/L (21-32) Anion Gap 15 (6-14) Blood Urea Nitrogen 71 mg/dL (8-26) Creatinine 6.3 mg/dL (0.7-1.3) Estimated GFR (Cockcroft-Gault) 11.4 BUN/Creatinine Ratio 11 (6-20) Glucose Level 107 mg/dL (70-99) Calcium Level 6.5 mg/dL (8.5-10.1) Total Bilirubin 0.6 mg/dL (0.2-1.0) Aspartate Amino Transf (AST/SGOT) 23 U/L (15-37) Alanine Aminotransferase (ALT/SGPT) 35 U/L (16-63) Alkaline Phosphatase 94 U/L (46-116) C-Reactive Protein, Quantitative 15.3 mg/L (0-3.3) Total Protein 8.1 g/dL (6.4-8.2) Albumin 3.5 g/dL (3.4-5.0) Albumin/Globulin Ratio 0.8 (1.0-1.7) Lactic Acid Level 1.0 mmol/L (0.4-2.0) Review All relevant outside records, renal labs, imaging studies, telemetry/EKG's were reviewed. RACHANA MCCRARY MD Nov 23, 2017 14:40
[2017-11-23 14:44] LABS: HEMATOCRIT 22.3 % (39.0-53.0); HEMOGLOBIN 7.7 g/dL (13.0-17.5)
[2017-11-23] MEDS ORDERED: VANCOMYCIN 2 GM in IV NORMAL SALINE 500ML BAG 500 ML IV ONE (15:00)
[2017-11-23] MEDS: PIPERACILLIN/TAZOBACTAM 2.25 GM in IV NORMAL SALINE 50ML 50 ML IV SCH ×2 (15:16→20:51)
[2017-11-23] MEDS: VANCOMYCIN PER PHARMACY MC PRN (16:44)
[2017-11-23] MEDS: ATORVASTATIN CALCIUM 20 MG TABLET PO SCH (20:49)
[2017-11-24 03:00] VITALS: BP 161/87
--- NOTE | 2017-11-24 05:22 | CONS ---
DATE OF CONSULTATION: 11/23/2017 REQUESTING PHYSICIAN: Dr. Griffin. REASON FOR CONSULTATION: Second toe infection. HISTORY OF PRESENT ILLNESS: This is a 52-year-old -[place] gentleman with multiple medical problems who came in for two reasons. The patient evidently was called by his doctor to say that his hemoglobin was very low and needed transfusion and the second reason is that about 4 days or 5 days ago he started noticing drainage from his right second toe. The patient denies any fever, denies any nausea or vomiting. He has had some diarrhea. Denies any other complaints. PAST MEDICAL HISTORY: Positive for diabetes mellitus, hypertension, end-stage renal disease on hemodialysis, anemia, gastroesophageal reflux disease, peripheral neuropathy and hyperparathyroidism. He has had TMA done on the left leg and big toe amputated on the right leg. SOCIAL HISTORY: Negative for smoking, alcohol or illicit drug use. ALLERGIES: No known drug allergies. CURRENT MEDICATIONS: Reviewed. The patient is not on any antibiotics. REVIEW OF SYSTEMS: As per HPI, all other systems reviewed are negative. PHYSICAL EXAMINATION: GENERAL: Alert, oriented gentleman, not in distress. VITAL SIGNS: Stable, afebrile. HEENT: NAD. NECK: Supple, no JVP, no lymphadenopathy. LUNGS: Clear. HEART: S1 and S2 regular. ABDOMEN: Benign. EXTREMITIES: No edema or cyanosis. The patient does have a nicely healed TMA on the left side. Right big toe amputation is unremarkable. Second toe is a hammertoe where the distal part of the toe bends and touches the ground where he has an ulcer and there is a purulent drainage. The depth of the ulcer cannot be judged as it is a small ulcer, but simone pus is coming out. There is another ulcer on the plantar surface of the toe, which has healthy granulation tissue. Dorsalis pedis is palpable. NEUROLOGICAL: The patient is neurologically intact. LABORATORY DATA: White count 6.9 and hemoglobin is 5.9. Sed rate is 41. BUN and creatinine is 71 and 6.3. Lactic acid was 1. Foot x-ray done, which did not reveal any radiographic evidence for osteomyelitis. IMPRESSION: 1. Right second hammertoe with ulceration and infection. 2. Anemia. 3. End-stage renal disease on hemodialysis. 4. Diabetes. 5. Hypertension. RECOMMENDATIONS: Culture has been now taken and we will start vancomycin and Zosyn, supportive care. I did discuss with the patient even if we will be able to heal this it will break down again because of the way it curves down on to the ground. He may be better off with partial amputation of the toe. The patient wants to avoid amputation, but he is going to think about it and make a decision. Meanwhile, we will treat with antibiotics, supportive care and offload. Thank you very much, Dr. Griffin for giving me the opportunity to participate in this patient's care. YANIRA GOMEZ MD DR: MELISA/malcom JOB#: [id number] / [id number]
[2017-11-24] MEDS: PIPERACILLIN/TAZOBACTAM 2.25 GM in IV NORMAL SALINE 50ML 50 ML IV SCH ×3 (05:27→20:50)
[2017-11-24] MEDS ORDERED: VANCOMYCIN RANDOM LEVEL. MC ONE (06:00)
[2017-11-24 06:52] LABS: BASO # 0.1 x10^3/uL (0.0-0.2); BASO % 1 % (0-3); EOS # 0.5 x10^3/uL (0.0-0.7); EOS % 4 % (0-3); HEMATOCRIT 22.4 % (39.0-53.0); HEMOGLOBIN 7.8 g/dL (13.0-17.5); LYMPH # 0.4 x10^3/uL (1.0-4.8); LYMPH % 3 % (24-48); MEAN CORPUSCULAR HEMOGLOBIN 31 pg (25-35); MEAN CORPUSCULAR HGB CONC 35 g/dL (31-37); MEAN CORPUSCULAR VOLUME 91 fL (79-100); MONO % 8 % (0-9); NEUT # 10.2 x10^3uL (1.8-7.7); NEUT % 85 % (31-73); PLATELET COUNT 285 x10^3/uL (140-400); RED BLOOD COUNT 2.47 x10^6/uL (4.30-5.70); RED CELL DISTRIBUTION WIDTH 19.6 % (11.5-14.5)
[2017-11-24 07:00] VITALS: BP 155/77
[2017-11-24 07:14] LABS: ALBUMIN 3.2 g/dL (3.4-5.0); ALBUMIN/GLOBULIN RATIO 0.7 (1.0-1.7); CALCIUM 6.6 mg/dL (8.5-10.1); CREATININE 6.3 mg/dL (0.7-1.3); GFR 11.4; PHOSPHORUS 4.3 mg/dL (2.6-4.7); POTASSIUM 4.2 mmol/L (3.5-5.1); TOTAL BILIRUBIN 1.4 mg/dL (0.2-1.0); TOTAL PROTEIN 7.9 g/dL (6.4-8.2)
--- NOTE | 2017-11-24 07:52 | CONS ---
DATE OF CONSULTATION: 11/23/2017 CHIEF COMPLAINT: Right second toe wound. HISTORY OF PRESENT ILLNESS: The patient is a 52-year-old male who has been admitted to the hospital with symptomatic anemia and being transfused. It was noted that he has a right second toe tip open wound. The patient states that that wound began this past weekend. He has a history of diabetic foot wounds and has undergone a left transmetatarsal amputation and a right first toe amputation by Dr. Velasco in the recent past. He reports that both of these have healed and he has seen Dr. Velasco since those surgeries. He reports no pain in his right toe or feet. On chart review, an arterial duplex scan was performed in 08/2017, which showed no significant stenosis within the right lower extremity. He states he does feel better after this first unit of blood transfusion. He is also on hemodialysis through a right chest tunneled hemodialysis catheter. He states he is getting dialysis once a week. He is right arm dominant. I discussed the option of arm access with him; however, he states that he is hoping not to be on long-term dialysis and he is transitioning back to seeing his head operator at and is not interested in arm access at this time. REVIEW OF SYSTEMS: A 10-point review of systems was performed, which is otherwise negative besides what is mentioned in the history of present illness. PAST MEDICAL HISTORY: 1. End-stage renal disease on hemodialysis through a right chest Perm-A-Cath. 2. Anemia. 3. Hypertension. 4. Diabetes mellitus. 5. Peripheral neuropathy. 6. Acid reflux disease. PAST SURGICAL HISTORY: Includes: Right first toe amputation and left transmetatarsal foot amputation by Dr. Velasco in the recent past. ALLERGIES: No known drug allergies. SOCIAL HISTORY: He does not smoke or drink alcohol. FAMILY HISTORY: Significant for diabetes and hypertension. PHYSICAL EXAMINATION: GENERAL: The patient is awake and alert, currently in no apparent distress. VITAL SIGNS: He is afebrile. His vital signs are stable. NECK: Supple with no carotid bruits. He has a right neck and chest tunneled hemodialysis catheter in place. HEART: Regular rate and rhythm without murmurs. LUNGS: Clear to auscultation bilaterally. EXTREMITIES: His bilateral upper extremities are warm without edema. He has palpable bilateral radial pulses and intact motor and sensory function in his hands. He does have a left antecubital IV in place and receiving a blood transfusion. ABDOMEN: His abdomen is soft, nondistended and nontender. EXTREMITIES: His bilateral lower extremities are warm without edema. His right foot has a healed first toe amputation incision. The right second toe has an open wound on the distal tip of the toe with underlying subcutaneous tissue with mild superficial necrotic tissue seen, no purulent drainage, no surrounding erythema or swelling of the toe. The left lower extremity has a healed transmetatarsal amputation incision. On vascular examination, he has bilateral palpable dorsalis pedis and posterior tibial pulses in his feet. NEUROLOGIC: The patient is awake and alert, oriented x 3, moving all 4 extremities with normal strength, normal speech, no gross neurologic deficits. DATABASE: X-ray of the right foot shows no evidence of osteomyelitis. IMPRESSION: 1. Right second toe diabetic ulcer. 2. End-stage renal disease on hemodialysis. 3. Diabetes mellitus. PLAN: 1. The patient has a right second toe tip open wound with no signs of osteomyelitis on x-ray. He does not need any urgent surgical intervention at this time. He has been managed by Dr. Velasco with orthopedic surgery with recent right first toe amputation and a history of a left transmetatarsal amputation. He would like to see Dr. Velasco for his right second toe wound and I agree since he knows him very well. I discussed with Dr. Velasco the patient's case and he is going to see him in consultation and manage his right second toe wound. From a vascular standpoint, he has palpable pulses and a recent arterial duplex scan, which shows no stenosis in the right leg. I think he has good circulation to heal a toe amputation if needed. 2. End-stage renal disease, on hemodialysis. He was dialyzing through a right chest Perm-A-Cath currently. I did discuss the option of arm access for long-term dialysis. The patient is not interested in this yet. He is reestablishing with his head operator at and hoping not to be on chronic hemodialysis. I told him we are happy to see him as an outpatient if they decide to proceed with arm access. DAJUAN DREW MD DR: TOM/malcom JOB#: [id number] / [id number]
--- NOTE | 2017-11-24 08:58 | PDOC ---
PROGRESS NOTES Chief Complaint Chief Complaint anemia symptomatic anemia, small toe wound with hammartoe, may have difficulty healing ESRD with anemia, now s/p 2 u PRBC Dm2, now off meds, diet controlled, has lost 40 lbs intentionally htn, chronic mild chronic diastolic CHF weakness and debility, acquired obesity, BMI 32 Vitals Vitals Vital Signs Date Time Temp Pulse Resp B/P (MAP) Pulse Ox O2 Delivery O2 Flow Rate FiO2 11/24/17 03:00 100.6 92 18 161/87 (111) 90 Room Air 100.6 11/23/17 20:00 2.0 Physical Exam General: Alert, Oriented X3, Cooperative, No acute distress Heart: Regular rate Lungs: Clear, Wheezing Abdomen: Normal bowel sounds Extremities: No clubbing, Other (right second toe with wound on the tip of the toe, no surrouding erythema) Skin: No breakdown Labs LABS Laboratory Tests Test 11/23/17 14:30 11/24/17 06:30 Hemoglobin 7.7 g/dL (13.0-17.5) 7.8 g/dL (13.0-17.5) Hematocrit 22.3 % (39.0-53.0) 22.4 % (39.0-53.0) Mean Corpuscular Hemoglobin Concent 34 g/dL (31-37) 35 g/dL (31-37) White Blood Count 12.0 x10^3/uL (4.0-11.0) Red Blood Count 2.47 x10^6/uL (4.30-5.70) Mean Corpuscular Volume 91 fL (79-100) Mean Corpuscular Hemoglobin 31 pg (25-35) Red Cell Distribution Width 19.6 % (11.5-14.5) Platelet Count 285 x10^3/uL (140-400) Neutrophils (%) (Auto) 85 % (31-73) Lymphocytes (%) (Auto) 3 % (24-48) Monocytes (%) (Auto) 8 % (0-9) Eosinophils (%) (Auto) 4 % (0-3) Basophils (%) (Auto) 1 % (0-3) Neutrophils # (Auto) 10.2 x10^3uL (1.8-7.7) Lymphocytes # (Auto) 0.4 x10^3/uL (1.0-4.8) Monocytes # (Auto) 1.0 x10^3/uL (0.0-1.1) Eosinophils # (Auto) 0.5 x10^3/uL (0.0-0.7) Basophils # (Auto) 0.1 x10^3/uL (0.0-0.2) Sodium Level 147 mmol/L (136-145) Potassium Level 4.2 mmol/L (3.5-5.1) Chloride Level 112 mmol/L (98-107) Carbon Dioxide Level 20 mmol/L (21-32) Anion Gap 15 (6-14) Blood Urea Nitrogen 81 mg/dL (8-26) Creatinine 6.3 mg/dL (0.7-1.3) Estimated GFR (Cockcroft-Gault) 11.4 BUN/Creatinine Ratio 13 (6-20) Glucose Level 120 mg/dL (70-99) Calcium Level 6.6 mg/dL (8.5-10.1) Phosphorus Level 4.3 mg/dL (2.6-4.7) Total Bilirubin 1.4 mg/dL (0.2-1.0) Aspartate Amino Transf (AST/SGOT) 25 U/L (15-37) Alanine Aminotransferase (ALT/SGPT) 34 U/L (16-63) Alkaline Phosphatase 88 U/L (46-116) Total Protein 7.9 g/dL (6.4-8.2) Albumin 3.2 g/dL (3.4-5.0) Albumin/Globulin Ratio 0.7 (1.0-1.7) Random Vancomycin Level 23.5 mcg/mL Review of Systems Review of Systems feels well, no pain, no n.v.d Assessment and Plan Assessmemt and Plan Problems Medical Problems: (1) Toe infection Status: Acute Comment Review of Relevant I have reviewed the following items donna (where applicable) has been applied. Labs Laboratory Tests Test 11/22/17 21:55 11/22/17 22:49 11/23/17 05:05 11/23/17 14:30 White Blood Count 6.9 x10^3/uL (4.0-11.0) Red Blood Count 1.87 x10^6/uL (4.30-5.70) Hemoglobin 5.9 g/dL (13.0-17.5) 6.6 g/dL (13.0-17.5) 7.7 g/dL (13.0-17.5) Hematocrit 17.3 % (39.0-53.0) 19.0 % (39.0-53.0) 22.3 % (39.0-53.0) Mean Corpuscular Volume 92 fL (79-100) Mean Corpuscular Hemoglobin 31 pg (25-35) Mean Corpuscular Hemoglobin Concent 34 g/dL (31-37) 35 g/dL (31-37) 34 g/dL (31-37) Red Cell Distribution Width 27.1 % (11.5-14.5) Platelet Count 292 x10^3/uL (140-400) Neutrophils (%) (Auto) 74 % (31-73) Lymphocytes (%) (Auto) 9 % (24-48) Monocytes (%) (Auto) 10 % (0-9) Eosinophils (%) (Auto) 5 % (0-3) Basophils (%) (Auto) 1 % (0-3) Neutrophils # (Auto) 5.2 x10^3uL (1.8-7.7) Lymphocytes # (Auto) 0.7 x10^3/uL (1.0-4.8) Monocytes # (Auto) 0.7 x10^3/uL (0.0-1.1) Eosinophils # (Auto) 0.4 x10^3/uL (0.0-0.7) Basophils # (Auto) 0.1 x10^3/uL (0.0-0.2) Platelet Estimate Adequate (ADEQUATE) Giant Platelets Few Polychromasia Slight Anisocytosis Marked Microcytosis Slight Macrocytosis Slight Tear Drop Cells Few Ovalocytes Few Schistocytes Occ Erythrocyte Sedimentation Rate 41 (0-15) Sodium Level 144 mmol/L (136-145) Potassium Level 3.8 mmol/L (3.5-5.1) Chloride Level 109 mmol/L (98-107) Carbon Dioxide Level 20 mmol/L (21-32) Anion Gap 15 (6-14) Blood Urea Nitrogen 71 mg/dL (8-26) Creatinine 6.3 mg/dL (0.7-1.3) Estimated GFR (Cockcroft-Gault) 11.4 BUN/Creatinine Ratio 11 (6-20) Glucose Level 107 mg/dL (70-99) Calcium Level 6.5 mg/dL (8.5-10.1) Total Bilirubin 0.6 mg/dL (0.2-1.0) Aspartate Amino Transf (AST/SGOT) 23 U/L (15-37) Alanine Aminotransferase (ALT/SGPT) 35 U/L (16-63) Alkaline Phosphatase 94 U/L (46-116) C-Reactive Protein, Quantitative 15.3 mg/L (0-3.3) Total Protein 8.1 g/dL (6.4-8.2) Albumin 3.5 g/dL (3.4-5.0) Albumin/Globulin Ratio 0.8 (1.0-1.7) Lactic Acid Level 1.0 mmol/L (0.4-2.0) Test 11/24/17 06:30 White Blood Count 12.0 x10^3/uL (4.0-11.0) Red Blood Count 2.47 x10^6/uL (4.30-5.70) Hemoglobin 7.8 g/dL (13.0-17.5) Hematocrit 22.4 % (39.0-53.0) Mean Corpuscular Volume 91 fL (79-100) Mean Corpuscular Hemoglobin 31 pg (25-35) Mean Corpuscular Hemoglobin Concent 35 g/dL (31-37) Red Cell Distribution Width 19.6 % (11.5-14.5) Platelet Count 285 x10^3/uL (140-400) Neutrophils (%) (Auto) 85 % (31-73) Lymphocytes (%) (Auto) 3 % (24-48) Monocytes (%) (Auto) 8 % (0-9) Eosinophils (%) (Auto) 4 % (0-3) Basophils (%) (Auto) 1 % (0-3) Neutrophils # (Auto) 10.2 x10^3uL (1.8-7.7) Lymphocytes # (Auto) 0.4 x10^3/uL (1.0-4.8) Monocytes # (Auto) 1.0 x10^3/uL (0.0-1.1) Eosinophils # (Auto) 0.5 x10^3/uL (0.0-0.7) Basophils # (Auto) 0.1 x10^3/uL (0.0-0.2) Sodium Level 147 mmol/L (136-145) Potassium Level 4.2 mmol/L (3.5-5.1) Chloride Level 112 mmol/L (98-107) Carbon Dioxide Level 20 mmol/L (21-32) Anion Gap 15 (6-14) Blood Urea Nitrogen 81 mg/dL (8-26) Creatinine 6.3 mg/dL (0.7-1.3) Estimated GFR (Cockcroft-Gault) 11.4 BUN/Creatinine Ratio 13 (6-20) Glucose Level 120 mg/dL (70-99) Calcium Level 6.6 mg/dL (8.5-10.1) Phosphorus Level 4.3 mg/dL (2.6-4.7) Total Bilirubin 1.4 mg/dL (0.2-1.0) Aspartate Amino Transf (AST/SGOT) 25 U/L (15-37) Alanine Aminotransferase (ALT/SGPT) 34 U/L (16-63) Alkaline Phosphatase 88 U/L (46-116) Total Protein 7.9 g/dL (6.4-8.2) Albumin 3.2 g/dL (3.4-5.0) Albumin/Globulin Ratio 0.7 (1.0-1.7) Random Vancomycin Level 23.5 mcg/mL Laboratory Tests Test 11/23/17 14:30 11/24/17 06:30 Hemoglobin 7.7 g/dL (13.0-17.5) 7.8 g/dL (13.0-17.5) Hematocrit 22.3 % (39.0-53.0) 22.4 % (39.0-53.0) Mean Corpuscular Hemoglobin Concent 34 g/dL (31-37) 35 g/dL (31-37) White Blood Count 12.0 x10^3/uL (4.0-11.0) Red Blood Count 2.47 x10^6/uL (4.30-5.70) Mean Corpuscular Volume 91 fL (79-100) Mean Corpuscular Hemoglobin 31 pg (25-35) Red Cell Distribution Width 19.6 % (11.5-14.5) Platelet Count 285 x10^3/uL (140-400) Neutrophils (%) (Auto) 85 % (31-73) Lymphocytes (%) (Auto) 3 % (24-48) Monocytes (%) (Auto) 8 % (0-9) Eosinophils (%) (Auto) 4 % (0-3) Basophils (%) (Auto) 1 % (0-3) Neutrophils # (Auto) 10.2 x10^3uL (1.8-7.7) Lymphocytes # (Auto) 0.4 x10^3/uL (1.0-4.8) Monocytes # (Auto) 1.0 x10^3/uL (0.0-1.1) Eosinophils # (Auto) 0.5 x10^3/uL (0.0-0.7) Basophils # (Auto) 0.1 x10^3/uL (0.0-0.2) Sodium Level 147 mmol/L (136-145) Potassium Level 4.2 mmol/L (3.5-5.1) Chloride Level 112 mmol/L (98-107) Carbon Dioxide Level 20 mmol/L (21-32) Anion Gap 15 (6-14) Blood Urea Nitrogen 81 mg/dL (8-26) Creatinine 6.3 mg/dL (0.7-1.3) Estimated GFR (Cockcroft-Gault) 11.4 BUN/Creatinine Ratio 13 (6-20) Glucose Level 120 mg/dL (70-99) Calcium Level 6.6 mg/dL (8.5-10.1) Phosphorus Level 4.3 mg/dL (2.6-4.7) Total Bilirubin 1.4 mg/dL (0.2-1.0) Aspartate Amino Transf (AST/SGOT) 25 U/L (15-37) Alanine Aminotransferase (ALT/SGPT) 34 U/L (16-63) Alkaline Phosphatase 88 U/L (46-116) Total Protein 7.9 g/dL (6.4-8.2) Albumin 3.2 g/dL (3.4-5.0) Albumin/Globulin Ratio 0.7 (1.0-1.7) Random Vancomycin Level 23.5 mcg/mL Microbiology 11/22/17 Blood Culture - Preliminary, Resulted NO GROWTH AFTER 1 DAY Medications Current Medications Ondansetron HCl (Zofran) 4 mg PRN Q8HRS PRN IV NAUSEA/VOMITING 1ST CHOICE; Start 11/23/17 at 00:30; Stop 11/24/17 at 00:29; Status DC Morphine Sulfate (Morphine Sulfate) 4 mg PRN Q2HR PRN IV SEVERE PAIN; Start at 00:30; Stop 11/24/17 at 00:29; Status DC Ascorbic Acid (Vitamin C) 500 mg DAILY PO Last administered on 11/23/17 08:50 ; Start 11/23/17 at 09:00 Atorvastatin Calcium (Lipitor) 20 mg QHS PO Last administered on 11/23/17 20: 49; Start 11/23/17 at 21:00 Ferrous Sulfate (Feosol) 325 mg BID PO Last administered on 11/23/17 20:49; Start 11/23/17 at 09:00 Folic Acid (Folic Acid) 1 mg DAILY PO Last administered on 11/23/17 08:50; Start 11/23/17 at 09:00 Furosemide (Lasix) 80 mg BID94 PO Last administered on 11/23/17 17:09; Start 11/23/17 at 09:00 Carvedilol (Coreg) 50 mg BIDWMEALS PO Last administered on 11/23/17 17:09; Start 11/23/17 at 08:00 Nifedipine (Procardia Xl) 60 mg DAILY PO Last administered on 11/23/17 08:51; Start 11/23/17 at 09:00 Calcium Acetate (Phoslo) 1,334 mg TIDWMEALS PO Last administered on 11/23/17 17:09; Start 11/23/17 at 08:00 Vancomycin HCl (Vanco Per Pharmacy) 1 each PRN DAILY PRN MC SEE COMMENTS Last administered on 11/23/17at 16:44; Start 11/23/17 at 13:15 Piperacillin Sod/ Tazobactam Sod 2.25 gm/Sodium Chloride 50 ml @ 100 mls/hr Q8HRS IV Last administered on 11/24/17at 05:27; Start 11/23/17 at 14:00 Vancomycin HCl 2 gm/Sodium Chloride 500 ml @ 250 mls/hr 1X ONCE IV Last administered on 11/23/17at 16:15; Start 11/23/17 at 15:00; Stop 11/23/17 at 16:59 ; Status DC Vancomycin HCl (Vancomycin Random Level) 1 each 1X ONCE MC Last administered on 11/24/17at 06:00; Start 11/24/17 at 06:00; Stop 11/24/17 at 06:01; Status DC Active Scripts Active [Calcium Acetate] 667 MG Capsule 1,334 Mg PO TIDWMEALS 30 Days Reported Ascorbic Acid 500 Mg Tablet 500 Mg PO Catapres-Tts 1 (Clonidine) 1 Each Patch.tdwk 1 Each TD QTU Lipitor (Atorvastatin Calcium) 20 Mg Tablet 20 Mg PO DAILY Carvedilol 25 Mg Tablet 50 Mg PO BIDWMEALS Vitamin D2 (Ergocalciferol (Vitamin D2)) 50,000 Unit Capsule 50,000 Unit PO QSU Ferrous Sulfate 325 Mg Tablet 325 Mg PO BID Folic Acid 1 Mg Tablet 1 Mg PO DAILY Procardia Xl (Nifedipine) 60 Mg Tab.er.24 60 Mg PO DAILY Furosemide 80 Mg Tablet 80 Mg PO BID Vitals/I & O Vital Sign - Last 24 Hours 11/23/17 11/23/17 11/23/17 11/23/17 10:20 10:35 11:00 11:20 Temp 98.4 98.1 98.1 97.9 98.4 98.1 98.1 97.9 Pulse 80 74 78 77 Resp 18 16 18 16 B/P (MAP) 143/74 134/69 129/71 (90) 132/70 Pulse Ox 92 O2 Delivery Room Air 11/23/17 11/23/17 11/23/17 11/23/17 12:20 13:20 15:00 17:09 Temp 98.1 98.1 98.1 98.1 98.1 98.1 Pulse 82 77 81 81 Resp 18 B/P (MAP) 148/78 152/82 143/75 (97) 143/75 Pulse Ox 92 O2 Delivery Nasal Cannula O2 Flow Rate 3.0 11/23/17 11/23/17 11/23/17 11/24/17 19:00 20:00 23:00 03:00 Temp 98.1 99.5 100.6 98.1 99.5 100.6 Pulse 81 88 92 Resp 18 18 18 B/P (MAP) 143/65 (91) 170/86 (114) 161/87 (111) Pulse Ox 90 85 90 O2 Delivery Room Air Nasal Cannula Room Air Room Air O2 Flow Rate 2.0 Intake and Output 8/22/18 8/22/18 8/23/18 15:00 23:00 07:00 Intake Total 700 ml 680 ml Balance 700 ml 680 ml DIXON GARZA MD Nov 24, 2017 08:58
[2017-11-24] MEDS: FOLIC ACID 1 MG TABLET. PO SCH (09:02)
[2017-11-24] MEDS: CALCIUM ACETATE 667 MG CAPSULE PO SCH ×3 (09:02→17:05)
[2017-11-24] MEDS: ASCORBIC ACID 500 MG TABLET PO SCH (09:02)
[2017-11-24] MEDS: FUROSEMIDE 80 MG TABLET. PO SCH ×2 (09:02→17:05)
[2017-11-24] MEDS: FERROUS SULFATE 325 MG TABLET. PO SCH ×2 (09:02→20:42)
[2017-11-24] MEDS: CARVEDILOL 12.5 MG TABLET. PO SCH ×2 (09:03→17:05)
[2017-11-24 10:04] LABS: % EOS 2 % (0-5); % LYMPHS 3 % (24-48); % MONOS 6 % (0-10); % SEGS 89 % (35-66)
[2017-11-24 10:05] LABS: PLT ESTIMATE ADEQUATE (ADEQUATE)
[2017-11-24 10:07] LABS: ANISOCYTOSIS SLIGHT; OVALOCYTES PRESENT; POIKILOCYTOSIS PRESENT
[2017-11-24 10:08] LABS: SCHISTOCYTES FEW
--- NOTE | 2017-11-24 10:33 | PDOC2 ---
CONSULT Date of Consult Date of Consult DATE: 11/24/17 TIME: 10:21 Reason for Consult Reason for Consult: right second toe wound Referring Physician Referring Physician: Magen Identification/Chief Complaint Chief Complaint right second toe wound Source Source: Chart review, Patient History of Present Illness Reason for Visit: The patient is a 52 year old male with a wound on his second toe. He states he originally came to the hospital for transfusion, due to a hemoglobin of 5. He noticed the wound on the second toe about 4-5 days ago. He states is started out as dark skin and then a small wound started. He has not noticed any drainage from the wound and has no pain. This patient is well-known to us as he had left foot TMA and right great toe amputation on 08/13/[address] Velasco, which have both done well. Arterial duplex scan was performed in 08/2017, which showed no significant stenosis within the right lower extremity Past Medical History Cardiovascular: HTN CENTRAL NERVOUS SYSTEM: Periperal neuropathy GI: GERD Heme/Onc: Anemia NOS Renal/: Chronic renal insuff Endocrine: Diabetes, Hyperparathyroidism Past Surgical History Past Surgical History: Cataract Removal, Other (left foot TMA, right great toe amputation 08/13/17) Family History Family History: Diabetes, Hypertension Social History No ALCOHOL: none Drugs: None Current Problem List Problem List Problems Medical Problems: (1) Toe infection Status: Acute Current Medications Current Medications Current Medications Ondansetron HCl (Zofran) 4 mg PRN Q8HRS PRN IV NAUSEA/VOMITING 1ST CHOICE; Start 11/23/17 at 00:30; Stop 11/24/17 at 00:29; Status DC Morphine Sulfate (Morphine Sulfate) 4 mg PRN Q2HR PRN IV SEVERE PAIN; Start at 00:30; Stop 11/24/17 at 00:29; Status DC Ascorbic Acid (Vitamin C) 500 mg DAILY PO Last administered on 11/24/17at 09:02 ; Start 11/23/17 at 09:00 Atorvastatin Calcium (Lipitor) 20 mg QHS PO Last administered on 11/23/17at 20: 49; Start 11/23/17 at 21:00 Ferrous Sulfate (Feosol) 325 mg BID PO Last administered on 11/24/17at 09:02; Start 11/23/17 at 09:00 Folic Acid (Folic Acid) 1 mg DAILY PO Last administered on 11/24/17 09:02; Start 11/23/17 at 09:00 Furosemide (Lasix) 80 mg BID94 PO Last administered on 11/24/17 09:02; Start 11/23/17 at 09:00 Carvedilol (Coreg) 50 mg BIDWMEALS PO Last administered on 11/24/17 09:03; Start 11/23/17 at 08:00 Nifedipine (Procardia Xl) 60 mg DAILY PO Last administered on 11/24/17at 09:04; Start 11/23/17 at 09:00 Calcium Acetate (Phoslo) 1,334 mg TIDWMEALS PO Last administered on 11/24/17 09:02; Start 11/23/17 at 08:00 Vancomycin HCl (Vanco Per Pharmacy) 1 each PRN DAILY PRN MC SEE COMMENTS Last administered on 11/23/17at 16:44; Start 11/23/17 at 13:15 Piperacillin Sod/ Tazobactam Sod 2.25 gm/Sodium Chloride 50 ml @ 100 mls/hr Q8HRS IV Last administered on 11/24/17at 05:27; Start 11/23/17 at 14:00 Vancomycin HCl 2 gm/Sodium Chloride 500 ml @ 250 mls/hr 1X ONCE IV Last administered on 11/23/17at 16:15; Start 11/23/17 at 15:00; Stop 11/23/17 at 16:59 ; Status DC Vancomycin HCl (Vancomycin Random Level) 1 each 1X ONCE MC Last administered on 11/24/17at 06:00; Start 11/24/17 at 06:00; Stop 11/24/17 at 06:01; Status DC Active Scripts Active [Calcium Acetate] 667 MG Capsule 1,334 Mg PO TIDWMEALS 30 Days Reported Ascorbic Acid 500 Mg Tablet 500 Mg PO Catapres-Tts 1 (Clonidine) 1 Each Patch.tdwk 1 Each TD QTU Lipitor (Atorvastatin Calcium) 20 Mg Tablet 20 Mg PO DAILY Carvedilol 25 Mg Tablet 50 Mg PO BIDWMEALS Vitamin D2 (Ergocalciferol (Vitamin D2)) 50,000 Unit Capsule 50,000 Unit PO QSU Ferrous Sulfate 325 Mg Tablet 325 Mg PO BID Folic Acid 1 Mg Tablet 1 Mg PO DAILY Procardia Xl (Nifedipine) 60 Mg Tab.er.24 60 Mg PO DAILY Furosemide 80 Mg Tablet 80 Mg PO BID Allergies Allergies: Coded Allergies: No Known Drug Allergies (Unverified , 09/05/17) Physical Exam General: Alert, Oriented X3, Cooperative, No acute distress HEENT: Atraumatic, EOMI Lungs: Normal air movement Heart: Regular rate Abdomen: Soft Extremities: Normal pulses Skin: No rashes, Other (left foot TMA and right great toe amputation incisions are well-healed. There is a 1cm x 1cm wound on the tip of the right second toe. There is no active drainage at this time and no foul smell. There is a smaller wound distal to this with healthy, pink granulation tissue. There is no tenderness to palpation of the foot or toe. No erythema or warmth. Dorsalis pedis and posterior tibialis pulses are palpable, bilaterally. Diminished sensation due to chronic peripheral neuropathy. ) Neuro: Normal speech, Sensation intact Psych/Mental Status: Mental status NL, Mood NL MUSCULOSKELETAL: Other (Right second toe as described above. Otherwise, unremarkable. ) Vitals VITALS Vital Signs Date Time Temp Pulse Resp B/P (MAP) Pulse Ox O2 Delivery O2 Flow Rate FiO2 11/24/17 09:04 88 143/71 11/24/17 08:00 Nasal Cannula 2.0 11/24/17 07:00 98.1 22 91 98.1 Labs Labs Laboratory Tests Test 11/22/17 21:55 11/22/17 22:49 11/23/17 05:05 11/23/17 14:30 White Blood Count 6.9 x10^3/uL (4.0-11.0) Red Blood Count 1.87 x10^6/uL (4.30-5.70) Hemoglobin 5.9 g/dL (13.0-17.5) 6.6 g/dL (13.0-17.5) 7.7 g/dL (13.0-17.5) Hematocrit 17.3 % (39.0-53.0) 19.0 % (39.0-53.0) 22.3 % (39.0-53.0) Mean Corpuscular Volume 92 fL (79-100) Mean Corpuscular Hemoglobin 31 pg (25-35) Mean Corpuscular Hemoglobin Concent 34 g/dL (31-37) 35 g/dL (31-37) 34 g/dL (31-37) Red Cell Distribution Width 27.1 % (11.5-14.5) Platelet Count 292 x10^3/uL (140-400) Neutrophils (%) (Auto) 74 % (31-73) Lymphocytes (%) (Auto) 9 % (24-48) Monocytes (%) (Auto) 10 % (0-9) Eosinophils (%) (Auto) 5 % (0-3) Basophils (%) (Auto) 1 % (0-3) Neutrophils # (Auto) 5.2 x10^3uL (1.8-7.7) Lymphocytes # (Auto) 0.7 x10^3/uL (1.0-4.8) Monocytes # (Auto) 0.7 x10^3/uL (0.0-1.1) Eosinophils # (Auto) 0.4 x10^3/uL (0.0-0.7) Basophils # (Auto) 0.1 x10^3/uL (0.0-0.2) Platelet Estimate Adequate (ADEQUATE) Giant Platelets Few Polychromasia Slight Anisocytosis Marked Microcytosis Slight Macrocytosis Slight Tear Drop Cells Few Ovalocytes Few Schistocytes Occ Erythrocyte Sedimentation Rate 41 (0-15) Sodium Level 144 mmol/L (136-145) Potassium Level 3.8 mmol/L (3.5-5.1) Chloride Level 109 mmol/L (98-107) Carbon Dioxide Level 20 mmol/L (21-32) Anion Gap 15 (6-14) Blood Urea Nitrogen 71 mg/dL (8-26) Creatinine 6.3 mg/dL (0.7-1.3) Estimated GFR (Cockcroft-Gault) 11.4 BUN/Creatinine Ratio 11 (6-20) Glucose Level 107 mg/dL (70-99) Calcium Level 6.5 mg/dL (8.5-10.1) Total Bilirubin 0.6 mg/dL (0.2-1.0) Aspartate Amino Transf (AST/SGOT) 23 U/L (15-37) Alanine Aminotransferase (ALT/SGPT) 35 U/L (16-63) Alkaline Phosphatase 94 U/L (46-116) C-Reactive Protein, Quantitative 15.3 mg/L (0-3.3) Total Protein 8.1 g/dL (6.4-8.2) Albumin 3.5 g/dL (3.4-5.0) Albumin/Globulin Ratio 0.8 (1.0-1.7) Lactic Acid Level 1.0 mmol/L (0.4-2.0) Test 11/24/17 06:30 White Blood Count 12.0 x10^3/uL (4.0-11.0) Red Blood Count 2.47 x10^6/uL (4.30-5.70) Hemoglobin 7.8 g/dL (13.0-17.5) Hematocrit 22.4 % (39.0-53.0) Mean Corpuscular Volume 91 fL (79-100) Mean Corpuscular Hemoglobin 31 pg (25-35) Mean Corpuscular Hemoglobin Concent 35 g/dL (31-37) Red Cell Distribution Width 19.6 % (11.5-14.5) Platelet Count 285 x10^3/uL (140-400) Neutrophils (%) (Auto) 85 % (31-73) Lymphocytes (%) (Auto) 3 % (24-48) Monocytes (%) (Auto) 8 % (0-9) Eosinophils (%) (Auto) 4 % (0-3) Basophils (%) (Auto) 1 % (0-3) Neutrophils # (Auto) 10.2 x10^3uL (1.8-7.7) Lymphocytes # (Auto) 0.4 x10^3/uL (1.0-4.8) Monocytes # (Auto) 1.0 x10^3/uL (0.0-1.1) Eosinophils # (Auto) 0.5 x10^3/uL (0.0-0.7) Basophils # (Auto) 0.1 x10^3/uL (0.0-0.2) Segmented Neutrophils % 89 % (35-66) Lymphocytes % 3 % (24-48) Monocytes % 6 % (0-10) Eosinophils % 2 % (0-5) Platelet Estimate Adequate (ADEQUATE) Poikilocytosis Present Anisocytosis Slight Ovalocytes Present Schistocytes Few Sodium Level 147 mmol/L (136-145) Potassium Level 4.2 mmol/L (3.5-5.1) Chloride Level 112 mmol/L (98-107) Carbon Dioxide Level 20 mmol/L (21-32) Anion Gap 15 (6-14) Blood Urea Nitrogen 81 mg/dL (8-26) Creatinine 6.3 mg/dL (0.7-1.3) Estimated GFR (Cockcroft-Gault) 11.4 BUN/Creatinine Ratio 13 (6-20) Glucose Level 120 mg/dL (70-99) Calcium Level 6.6 mg/dL (8.5-10.1) Phosphorus Level 4.3 mg/dL (2.6-4.7) Total Bilirubin 1.4 mg/dL (0.2-1.0) Aspartate Amino Transf (AST/SGOT) 25 U/L (15-37) Alanine Aminotransferase (ALT/SGPT) 34 U/L (16-63) Alkaline Phosphatase 88 U/L (46-116) Total Protein 7.9 g/dL (6.4-8.2) Albumin 3.2 g/dL (3.4-5.0) Albumin/Globulin Ratio 0.7 (1.0-1.7) Random Vancomycin Level 23.5 mcg/mL Laboratory Tests Test 11/23/17 14:30 11/24/17 06:30 Hemoglobin 7.7 g/dL (13.0-17.5) 7.8 g/dL (13.0-17.5) Hematocrit 22.3 % (39.0-53.0) 22.4 % (39.0-53.0) Mean Corpuscular Hemoglobin Concent 34 g/dL (31-37) 35 g/dL (31-37) White Blood Count 12.0 x10^3/uL (4.0-11.0) Red Blood Count 2.47 x10^6/uL (4.30-5.70) Mean Corpuscular Volume 91 fL (79-100) Mean Corpuscular Hemoglobin 31 pg (25-35) Red Cell Distribution Width 19.6 % (11.5-14.5) Platelet Count 285 x10^3/uL (140-400) Neutrophils (%) (Auto) 85 % (31-73) Lymphocytes (%) (Auto) 3 % (24-48) Monocytes (%) (Auto) 8 % (0-9) Eosinophils (%) (Auto) 4 % (0-3) Basophils (%) (Auto) 1 % (0-3) Neutrophils # (Auto) 10.2 x10^3uL (1.8-7.7) Lymphocytes # (Auto) 0.4 x10^3/uL (1.0-4.8) Monocytes # (Auto) 1.0 x10^3/uL (0.0-1.1) Eosinophils # (Auto) 0.5 x10^3/uL (0.0-0.7) Basophils # (Auto) 0.1 x10^3/uL (0.0-0.2) Segmented Neutrophils % 89 % (35-66) Lymphocytes % 3 % (24-48) Monocytes % 6 % (0-10) Eosinophils % 2 % (0-5) Platelet Estimate Adequate (ADEQUATE) Poikilocytosis Present Anisocytosis Slight Ovalocytes Present Schistocytes Few Sodium Level 147 mmol/L (136-145) Potassium Level 4.2 mmol/L (3.5-5.1) Chloride Level 112 mmol/L (98-107) Carbon Dioxide Level 20 mmol/L (21-32) Anion Gap 15 (6-14) Blood Urea Nitrogen 81 mg/dL (8-26) Creatinine 6.3 mg/dL (0.7-1.3) Estimated GFR (Cockcroft-Gault) 11.4 BUN/Creatinine Ratio 13 (6-20) Glucose Level 120 mg/dL (70-99) Calcium Level 6.6 mg/dL (8.5-10.1) Phosphorus Level 4.3 mg/dL (2.6-4.7) Total Bilirubin 1.4 mg/dL (0.2-1.0) Aspartate Amino Transf (AST/SGOT) 25 U/L (15-37) Alanine Aminotransferase (ALT/SGPT) 34 U/L (16-63) Alkaline Phosphatase 88 U/L (46-116) Total Protein 7.9 g/dL (6.4-8.2) Albumin 3.2 g/dL (3.4-5.0) Albumin/Globulin Ratio 0.7 (1.0-1.7) Random Vancomycin Level 23.5 mcg/mL Images Images X-rays of the right foot show no evidence of osteomyelitis. Assessment/Plan Assessment/Plan Right second toe wound. Options for treatment were discussed with the patient. He does have palpable dorsalis pedis pulses, bilaterally. Dr. Velasco recommended local wound care and IV antibiotics at this time. If healing isn't seen or the wound further breaks down, then amputation will be considered. The patient agrees with this plan. We will order a half-shoe to offload the front of the foot to be worn while he is weightbearing. We will continue to follow throughout his stay. NATALYA NOLASCO Nov 24, 2017 10:33
[2017-11-24] MEDS ORDERED: diphenhydrAMINE 50 MG/ML VIAL IV PRN ×2 (11:00)
[2017-11-24] MEDS ORDERED: IV NORMAL SALINE 1000ML BAG 1,000 ML IV PRN ×2 (11:00)
[2017-11-24] MEDS ORDERED: cloNIDine HCL 0.1 MG TABLET PO PRN (11:00)
[2017-11-24] MEDS ORDERED: ALBUMIN HUMAN 25% 200 ML IV PRN (11:00)
[2017-11-24] MEDS ORDERED: DIALYSIS PATIENT. MC PRN (11:00)
[2017-11-24] MEDS ORDERED: LABETALOL 20 MG/4 ML DISP.SYRIN. IVP PRN (11:00)
[2017-11-24] MEDS ORDERED: ACETAMINOPHEN 500 MG TABLET PO PRN (11:00)
--- NOTE | 2017-11-24 11:45 | PDOC ---
SUBJECTIVE ROS seen on HD tolerating well OBJECTIVE Vital Signs Vital Signs Date Time Temp Pulse Resp B/P (MAP) Pulse Ox O2 Delivery O2 Flow Rate FiO2 11/24/17 09:04 88 143/71 11/24/17 08:00 Nasal Cannula 2.0 11/24/17 07:00 98.1 22 91 98.1 I & 0 Intake and Output 11/24/17 07:00 Intake Total 1380 ml Balance 1380 ml Intake Oral 680 ml Blood Product IV Normal Saline Flush 700 ml # Voids 1 PHYSICAL EXAM Physical Exam GENERAL: Alert, oriented gentleman, not in distress. HEENT: NAD. NECK: Supple, no JVP, no lymphadenopathy. LUNGS: Clear. HEART: S1 and S2 regular. ABDOMEN: Benign. EXTREMITIES: No edema or cyanosis. s/p TMA on the left side. NEUROLOGICAL: The patient is neurologically intact. DIAGNOSIS/ASSESSMENT Assessment & Plan ESRD - On HD at [facility] He is a TTS schedule, but has been going only once a week on his own Last HD was on Last Tuesday, Seen on HD today , Tolerating well continue as Ordered Anemia- Recd PRBC CHAMBERLAIN as per primary BM Bx earlier this year- Negative for MM as per Dr. 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 COMMENT/RELEVANT DATA Meds Current Medications Medications (Trade) Dose Ordered Sig/Solomon Start Time Stop Time Status Last Admin Dose Admin Acetaminophen (Tylenol) 500 mg 1X PRN PRN 11/24/17 11:00 11/24/17 18:00 Albumin Human 200 ml @ 200 mls/hr 1X PRN PRN 11/24/17 11:00 11/24/17 16:59 Ascorbic Acid (Vitamin C) 500 mg DAILY 11/23/17 09:00 11/24/17 09:02 500 MG Atorvastatin Calcium (Lipitor) 20 mg QHS 11/23/17 21:00 11/23/17 20:49 20 MG Calcium Acetate (Phoslo) 1,334 mg TIDWMEALS 11/23/17 08:00 11/24/17 09:02 1,334 MG Carvedilol (Coreg) 50 mg BIDWMEALS 11/23/17 08:00 11/24/17 09:03 50 MG Clonidine HCl (Catapres) 0.1 mg 1X PRN PRN 11/24/17 11:00 11/24/17 18:00 Diphenhydramine HCl (Benadryl) 25 mg 1X PRN PRN 11/24/17 11:00 11/24/17 18:00 Ferrous Sulfate (Feosol) 325 mg BID 11/23/17 09:00 11/24/17 09:02 325 MG Folic Acid (Folic Acid) 1 mg DAILY 11/23/17 09:00 11/24/17 09:02 1 MG Furosemide (Lasix) 80 mg [id number] 11/23/17 09:00 11/24/17 09:02 80 MG Info (PHARMACY MONITORING -- do not chart) 1 each PRN DAILY PRN 11/24/17 11:00 Labetalol HCl (Normodyne Iv Push) 10 mg PRN Q1HR PRN 11/24/17 11:00 11/24/17 18:00 Morphine Sulfate (Morphine Sulfate) 4 mg PRN Q2HR PRN 11/23/17 00:30 11/24/17 00:29 DC Nifedipine (Procardia Xl) 60 mg DAILY 11/23/17 09:00 11/24/17 09:04 60 MG Ondansetron HCl (Zofran) 4 mg PRN Q8HRS PRN 11/23/17 00:30 11/24/17 00:29 DC Piperacillin Sod/ Tazobactam Sod 2.25 gm/Sodium Chloride 50 ml @ 100 mls/hr Q8HRS 11/23/17 14:00 11/24/17 05:27 100 MLS/HR Sodium Chloride 1,000 ml @ 400 mls/hr Q2H30M PRN 11/24/17 11:00 11/24/17 18:00 Vancomycin HCl (Vanco Per Pharmacy) 1 each PRN DAILY PRN 11/23/17 13:15 11/23/17 16:44 1 EACH Vancomycin HCl (Vancomycin Random Level) 1 each 1X ONCE 11/24/17 06:00 11/24/17 06:01 DC 11/24/17 06:00 1 EACH Vancomycin HCl 2 gm/Sodium Chloride 500 ml @ 250 mls/hr 1X ONCE 11/23/17 15:00 11/23/17 16:59 DC 11/23/17 16:15 250 MLS/HR Lab Laboratory Tests Test 11/23/17 14:30 11/24/17 06:30 Hemoglobin 7.7 g/dL (13.0-17.5) 7.8 g/dL (13.0-17.5) Hematocrit 22.3 % (39.0-53.0) 22.4 % (39.0-53.0) Mean Corpuscular Hemoglobin Concent 34 g/dL (31-37) 35 g/dL (31-37) White Blood Count 12.0 x10^3/uL (4.0-11.0) Red Blood Count 2.47 x10^6/uL (4.30-5.70) Mean Corpuscular Volume 91 fL (79-100) Mean Corpuscular Hemoglobin 31 pg (25-35) Red Cell Distribution Width 19.6 % (11.5-14.5) Platelet Count 285 x10^3/uL (140-400) Neutrophils (%) (Auto) 85 % (31-73) Lymphocytes (%) (Auto) 3 % (24-48) Monocytes (%) (Auto) 8 % (0-9) Eosinophils (%) (Auto) 4 % (0-3) Basophils (%) (Auto) 1 % (0-3) Neutrophils # (Auto) 10.2 x10^3uL (1.8-7.7) Lymphocytes # (Auto) 0.4 x10^3/uL (1.0-4.8) Monocytes # (Auto) 1.0 x10^3/uL (0.0-1.1) Eosinophils # (Auto) 0.5 x10^3/uL (0.0-0.7) Basophils # (Auto) 0.1 x10^3/uL (0.0-0.2) Segmented Neutrophils % 89 % (35-66) Lymphocytes % 3 % (24-48) Monocytes % 6 % (0-10) Eosinophils % 2 % (0-5) Platelet Estimate Adequate (ADEQUATE) Poikilocytosis Present Anisocytosis Slight Ovalocytes Present Schistocytes Few Sodium Level 147 mmol/L (136-145) Potassium Level 4.2 mmol/L (3.5-5.1) Chloride Level 112 mmol/L (98-107) Carbon Dioxide Level 20 mmol/L (21-32) Anion Gap 15 (6-14) Blood Urea Nitrogen 81 mg/dL (8-26) Creatinine 6.3 mg/dL (0.7-1.3) Estimated GFR (Cockcroft-Gault) 11.4 BUN/Creatinine Ratio 13 (6-20) Glucose Level 120 mg/dL (70-99) Calcium Level 6.6 mg/dL (8.5-10.1) Phosphorus Level 4.3 mg/dL (2.6-4.7) Total Bilirubin 1.4 mg/dL (0.2-1.0) Aspartate Amino Transf (AST/SGOT) 25 U/L (15-37) Alanine Aminotransferase (ALT/SGPT) 34 U/L (16-63) Alkaline Phosphatase 88 U/L (46-116) Total Protein 7.9 g/dL (6.4-8.2) Albumin 3.2 g/dL (3.4-5.0) Albumin/Globulin Ratio 0.7 (1.0-1.7) Random Vancomycin Level 23.5 mcg/mL Results All relevant outside records, renal labs, imaging studies, telemetry/EKG's were reviewed. RACHANA MCCRARY MD Nov 24, 2017 11:45
[2017-11-24] MEDS: VANCOMYCIN PER PHARMACY MC PRN (13:33)
--- NOTE | 2017-11-24 14:38 | PDOC ---
Infectious Disease Note Subjective Subjective pt is feeling better, has not seen dr Velasco to decide ROS ROS no n/v/d/sob Vital Sign Vital Signs Vital Signs Date Time Temp Pulse Resp B/P (MAP) Pulse Ox O2 Delivery O2 Flow Rate FiO2 11/24/17 09:04 88 143/71 11/24/17 08:00 Nasal Cannula 2.0 11/24/17 07:00 98.1 22 91 98.1 Physical Exam PHYSICAL EXAM GENERAL: Alert, oriented gentleman, not in distress. VITAL SIGNS: Stable, afebrile. HEENT: NAD. NECK: Supple, no JVP, no lymphadenopathy. LUNGS: Clear. HEART: S1 and S2 regular. ABDOMEN: Benign. EXTREMITIES: No edema or cyanosis. The patient does have a nicely healed TMA on the left side. Right big toe amputation is unremarkable. Second toe is a hammertoe where the distal part of the toe bends and touches the ground where he has an ulcer and there is a purulent drainage. The depth of the ulcer cannot be judged as it is a small ulcer, but simone pus is coming out. There is another ulcer on the plantar surface of the toe, which has healthy granulation tissue. Dorsalis pedis is palpable. NEUROLOGICAL: The patient is neurologically intact. Labs Lab Laboratory Tests Test 11/24/17 06:30 White Blood Count 12.0 x10^3/uL (4.0-11.0) Red Blood Count 2.47 x10^6/uL (4.30-5.70) Hemoglobin 7.8 g/dL (13.0-17.5) Hematocrit 22.4 % (39.0-53.0) Mean Corpuscular Volume 91 fL (79-100) Mean Corpuscular Hemoglobin 31 pg (25-35) Mean Corpuscular Hemoglobin Concent 35 g/dL (31-37) Red Cell Distribution Width 19.6 % (11.5-14.5) Platelet Count 285 x10^3/uL (140-400) Neutrophils (%) (Auto) 85 % (31-73) Lymphocytes (%) (Auto) 3 % (24-48) Monocytes (%) (Auto) 8 % (0-9) Eosinophils (%) (Auto) 4 % (0-3) Basophils (%) (Auto) 1 % (0-3) Neutrophils # (Auto) 10.2 x10^3uL (1.8-7.7) Lymphocytes # (Auto) 0.4 x10^3/uL (1.0-4.8) Monocytes # (Auto) 1.0 x10^3/uL (0.0-1.1) Eosinophils # (Auto) 0.5 x10^3/uL (0.0-0.7) Basophils # (Auto) 0.1 x10^3/uL (0.0-0.2) Segmented Neutrophils % 89 % (35-66) Lymphocytes % 3 % (24-48) Monocytes % 6 % (0-10) Eosinophils % 2 % (0-5) Platelet Estimate Adequate (ADEQUATE) Poikilocytosis Present Anisocytosis Slight Ovalocytes Present Schistocytes Few Sodium Level 147 mmol/L (136-145) Potassium Level 4.2 mmol/L (3.5-5.1) Chloride Level 112 mmol/L (98-107) Carbon Dioxide Level 20 mmol/L (21-32) Anion Gap 15 (6-14) Blood Urea Nitrogen 81 mg/dL (8-26) Creatinine 6.3 mg/dL (0.7-1.3) Estimated GFR (Cockcroft-Gault) 11.4 BUN/Creatinine Ratio 13 (6-20) Glucose Level 120 mg/dL (70-99) Calcium Level 6.6 mg/dL (8.5-10.1) Phosphorus Level 4.3 mg/dL (2.6-4.7) Total Bilirubin 1.4 mg/dL (0.2-1.0) Aspartate Amino Transf (AST/SGOT) 25 U/L (15-37) Alanine Aminotransferase (ALT/SGPT) 34 U/L (16-63) Alkaline Phosphatase 88 U/L (46-116) Total Protein 7.9 g/dL (6.4-8.2) Albumin 3.2 g/dL (3.4-5.0) Albumin/Globulin Ratio 0.7 (1.0-1.7) Random Vancomycin Level 23.5 mcg/mL Micro Microbiology 11/22/17 Blood Culture - Preliminary, Resulted NO GROWTH AFTER 1 DAY Objective Assessment Rt 2nd toe ulcer with infection ESRD Anemia DM HTN Plan Plan of Care culture vanc and zosyn partial amputation discussed, pt is going to think about it,,, this will heal without amputation but will certainly recure supportive care YANIRA GOMEZ MD Nov 24, 2017 14:38
[2017-11-24] MEDS ORDERED: VANCOMYCIN 500 MG in IV NORMAL SALINE 100ML 100 ML IV SCH (16:00)
[2017-11-24 16:10] VITALS: BP 141/57
[2017-11-24 19:30] VITALS: BP 128/58
[2017-11-24] MEDS: ATORVASTATIN CALCIUM 20 MG TABLET PO SCH (20:42)
[2017-11-24] MEDS: LACTOBACILLUS RHAMNOSUS GG 1 CAPSULE. PO SCH (20:42)
[2017-11-24 23:46] VITALS: BP 135/69
[2017-11-25 03:22] VITALS: BP 130/68
[2017-11-25] MEDS: oxyCODONE/APAP 5/325 1 TAB TABLET PO PRN ×2 (03:29→21:32)
[2017-11-25] MEDS: PIPERACILLIN/TAZOBACTAM 2.25 GM in IV NORMAL SALINE 50ML 50 ML IV SCH ×3 (05:19→21:33)
[2017-11-25 07:00] VITALS: BP 130/64
--- NOTE | 2017-11-25 08:49 | PDOC ---
PROGRESS NOTES Subjective Subjective pain right foot Objective Objective Vital Signs Date Time Temp Pulse Resp B/P (MAP) Pulse Ox O2 Delivery O2 Flow Rate FiO2 11/25/17 07:00 98.8 85 18 130/64 (86) 90 Room Air 98.8 11/24/17 23:46 3.0 Intake and Output 11/25/17 07:00 Intake Total 780 ml Balance 780 ml Intake Oral 780 ml # Voids 1 Physical Exam Physical Exam seen examined bedside lungs;clear cvs:s1s2 regular abd: soft, bs active ext: see wound care, right foot wound neck: supple skin: warm and dry Assessment Assessment anemia symptomatic anemia, s/p transfusion small toe wound with hammartoe, ESRD Dm2, now off meds, diet controlled, has lost 40 lbs intentionally htn, chronic mild chronic diastolic CHF weakness and debility, acquired obesity, BMI 32 plan: continue current meds dialysis per schedule follow cultures appreciate consults antibiotics see orders, patient educated Comment Review of Relevant reviewed Labs Laboratory Tests Test 11/23/17 14:30 11/24/17 06:30 11/24/17 21:08 11/25/17 07:27 Hemoglobin 7.7 g/dL (13.0-17.5) 7.8 g/dL (13.0-17.5) Hematocrit 22.3 % (39.0-53.0) 22.4 % (39.0-53.0) Mean Corpuscular Hemoglobin Concent 34 g/dL (31-37) 35 g/dL (31-37) White Blood Count 12.0 x10^3/uL (4.0-11.0) Red Blood Count 2.47 x10^6/uL (4.30-5.70) Mean Corpuscular Volume 91 fL (79-100) Mean Corpuscular Hemoglobin 31 pg (25-35) Red Cell Distribution Width 19.6 % (11.5-14.5) Platelet Count 285 x10^3/uL (140-400) Neutrophils (%) (Auto) 85 % (31-73) Lymphocytes (%) (Auto) 3 % (24-48) Monocytes (%) (Auto) 8 % (0-9) Eosinophils (%) (Auto) 4 % (0-3) Basophils (%) (Auto) 1 % (0-3) Neutrophils # (Auto) 10.2 x10^3uL (1.8-7.7) Lymphocytes # (Auto) 0.4 x10^3/uL (1.0-4.8) Monocytes # (Auto) 1.0 x10^3/uL (0.0-1.1) Eosinophils # (Auto) 0.5 x10^3/uL (0.0-0.7) Basophils # (Auto) 0.1 x10^3/uL (0.0-0.2) Segmented Neutrophils % 89 % (35-66) Lymphocytes % 3 % (24-48) Monocytes % 6 % (0-10) Eosinophils % 2 % (0-5) Platelet Estimate Adequate (ADEQUATE) Poikilocytosis Present Anisocytosis Slight Ovalocytes Present Schistocytes Few Sodium Level 147 mmol/L (136-145) Potassium Level 4.2 mmol/L (3.5-5.1) Chloride Level 112 mmol/L (98-107) Carbon Dioxide Level 20 mmol/L (21-32) Anion Gap 15 (6-14) Blood Urea Nitrogen 81 mg/dL (8-26) Creatinine 6.3 mg/dL (0.7-1.3) Estimated GFR (Cockcroft-Gault) 11.4 BUN/Creatinine Ratio 13 (6-20) Glucose Level 120 mg/dL (70-99) Calcium Level 6.6 mg/dL (8.5-10.1) Phosphorus Level 4.3 mg/dL (2.6-4.7) Total Bilirubin 1.4 mg/dL (0.2-1.0) Aspartate Amino Transf (AST/SGOT) 25 U/L (15-37) Alanine Aminotransferase (ALT/SGPT) 34 U/L (16-63) Alkaline Phosphatase 88 U/L (46-116) Total Protein 7.9 g/dL (6.4-8.2) Albumin 3.2 g/dL (3.4-5.0) Albumin/Globulin Ratio 0.7 (1.0-1.7) Random Vancomycin Level 23.5 mcg/mL Hepatitis B Surface Antigen Nonreactive (Nonreactive) Glucose (Fingerstick) 142 mg/dL (70-99) 105 mg/dL (70-99) Laboratory Tests Test 11/24/17 21:08 11/25/17 07:27 Glucose (Fingerstick) 142 mg/dL (70-99) 105 mg/dL (70-99) Microbiology 11/22/17 Blood Culture - Preliminary, Resulted NO GROWTH AFTER 2 DAYS 11/23/17 Anaerobic/Aerobic Culture, Resulted Pending 11/23/17 Anaerobic Culture Result 1 (SEN), Resulted Pending 11/23/17 Aerobic Culture, Resulted Pending 11/23/17 Aerobic Culture Result 1 (SEN), Resulted Pending 11/23/17 Gram Stain - Final, Resulted 11/23/17 Gram Stain Result 1 (SEN) - Final, Resulted 11/23/17 Gram Stain Result 2 (SEN) - Final, Resulted Medications Current Medications Ondansetron HCl (Zofran) 4 mg PRN Q8HRS PRN IV NAUSEA/VOMITING 1ST CHOICE; Start 11/23/17 at 00:30; Stop 11/24/17 at 00:29; Status DC Morphine Sulfate (Morphine Sulfate) 4 mg PRN Q2HR PRN IV SEVERE PAIN; Start at 00:30; Stop 11/24/17 at 00:29; Status DC Ascorbic Acid (Vitamin C) 500 mg DAILY PO Last administered on 11/24/17at 09:02 ; Start 11/23/17 at 09:00 Atorvastatin Calcium (Lipitor) 20 mg QHS PO Last administered on 11/24/17at 20: 42; Start 11/23/17 at 21:00 Ferrous Sulfate (Feosol) 325 mg BID PO Last administered on 11/24/17at 20:42; Start 11/23/17 at 09:00 Folic Acid (Folic Acid) 1 mg DAILY PO Last administered on 11/24/17at 09:02; Start 11/23/17 at 09:00 Furosemide (Lasix) 80 mg BID94 PO Last administered on 11/24/17at 17:05; Start 11/23/17 at 09:00 Carvedilol (Coreg) 50 mg BIDWMEALS PO Last administered on 11/24/17at 17:05; Start 11/23/17 at 08:00 Nifedipine (Procardia Xl) 60 mg DAILY PO Last administered on 11/24/17at 09:04; Start 11/23/17 at 09:00 Calcium Acetate (Phoslo) 1,334 mg TIDWMEALS PO Last administered on 11/24/17at 17:05; Start 11/23/17 at 08:00 Vancomycin HCl (Vanco Per Pharmacy) 1 each PRN DAILY PRN MC SEE COMMENTS Last administered on 11/24/17at 13:33; Start 11/23/17 at 13:15 Piperacillin Sod/ Tazobactam Sod 2.25 gm/Sodium Chloride 50 ml @ 100 mls/hr Q8HRS IV Last administered on 11/25/17at 05:19; Start 11/23/17 at 14:00 Vancomycin HCl 2 gm/Sodium Chloride 500 ml @ 250 mls/hr 1X ONCE IV Last administered on 11/23/17at 16:15; Start 11/23/17 at 15:00; Stop 11/23/17 at 16:59 ; Status DC Vancomycin HCl (Vancomycin Random Level) 1 each 1X ONCE MC Last administered on 11/24/17at 06:00; Start 11/24/17 at 06:00; Stop 11/24/17 at 06:01; Status DC Sodium Chloride 1,000 ml @ 1,000 mls/hr Q1H PRN IV hypotension; Start 11/24/17 at 11:00; Stop 11/24/17 at 18:00; Status DC Albumin Human 200 ml @ 200 mls/hr 1X PRN PRN IV Hypotension; Start 11/24/17 at 11:00; Stop 11/24/17 at 16:59; Status DC Acetaminophen (Tylenol) 500 mg 1X PRN PRN PO MILD PAIN / TEMP; Start 11/24/17 at 11:00; Stop 11/24/17 at 18:00; Status DC Diphenhydramine HCl (Benadryl) 25 mg 1X PRN PRN IV ITCHING; Start 11/24/17 at 11:00; Stop 11/24/17 at 18:00; Status DC Diphenhydramine HCl (Benadryl) 25 mg 1X PRN PRN IV ITCHING; Start 11/24/17 at 11:00; Stop 11/24/17 at 18:00; Status DC Labetalol HCl (Normodyne Iv Push) 10 mg PRN Q1HR PRN IVP SBP > 180; Start 11/24 at 11:00; Stop 11/24/17 at 18:00; Status DC Clonidine HCl (Catapres) 0.1 mg 1X PRN PRN PO SBP > 180; Start 11/24/17 at 11: 00; Stop 11/24/17 at 18:00; Status DC Sodium Chloride 1,000 ml @ 400 mls/hr Q2H30M PRN IV PATENCY; Start 11/24/17 at 11:00; Stop 11/24/17 at 18:00; Status DC Info (PHARMACY MONITORING -- do not chart) 1 each PRN DAILY PRN MC SEE COMMENTS ; Start 11/24/17 at 11:00 Vancomycin HCl 500 mg/Sodium Chloride 100 ml @ 100 mls/hr QTUTHSASU IV Last administered on 11/24/17at 17:06; Start 11/24/17 at 16:00 Lactobacillus Rhamnosus (Culturelle) 1 cap BID PO Last administered on at 20:42; Start 11/24/17 at 21:00 Oxycodone/ Acetaminophen (Percocet 5/325) 1 tab PRN Q4HRS PRN PO PAIN Last administered on 11/25/17at 03:29; Start 11/25/17 at 03:30 Active Scripts Active [Calcium Acetate] 667 MG Capsule 1,334 Mg PO TIDWMEALS 30 Days Reported Ascorbic Acid 500 Mg Tablet 500 Mg PO Catapres-Tts 1 (Clonidine) 1 Each Patch.tdwk 1 Each TD QTU Lipitor (Atorvastatin Calcium) 20 Mg Tablet 20 Mg PO DAILY Carvedilol 25 Mg Tablet 50 Mg PO BIDWMEALS Vitamin D2 (Ergocalciferol (Vitamin D2)) 50,000 Unit Capsule 50,000 Unit PO QSU Ferrous Sulfate 325 Mg Tablet 325 Mg PO BID Folic Acid 1 Mg Tablet 1 Mg PO DAILY Procardia Xl (Nifedipine) 60 Mg Tab.er.24 60 Mg PO DAILY Furosemide 80 Mg Tablet 80 Mg PO BID Vitals/I & O Vital Sign - Last 24 Hours 11/24/17 11/24/17 11/24/17 11/24/17 09:03 09:04 16:10 17:05 Temp 98.3 98.3 Pulse 88 88 85 85 Resp 18 B/P (MAP) 143/71 143/71 141/57 (85) 141/57 Pulse Ox 95 O2 Delivery Nasal Cannula O2 Flow Rate 1.5 11/24/17 11/24/17 11/24/17 11/25/17 19:30 20:00 23:46 03:22 Temp 98.9 99.4 99.5 98.9 99.4 99.5 Pulse 81 89 89 Resp 18 B/P (MAP) 128/58 (81) 135/69 (91) 130/68 (88) Pulse Ox 91 95 85 O2 Delivery Nasal Cannula Nasal Cannula Nasal Cannula Room Air O2 Flow Rate 2.0 2.0 3.0 11/25/17 11/25/17 11/25/17 03:29 04:33 07:00 Temp 98.8 98.8 Pulse 85 Resp B/P (MAP) 130/64 (86) Pulse Ox 90 O2 Delivery Room Air Room Air Room Air Intake and Output 11/24/17 11/24/17 11/25/17 15:00 23:00 07:00 Intake Total 180 ml 120 ml 480 ml Balance 180 ml 120 ml 480 ml MELLISA DEL TORO MD Nov 25, 2017 08:49
[2017-11-25] MEDS: FOLIC ACID 1 MG TABLET. PO SCH (09:25)
[2017-11-25] MEDS: ASCORBIC ACID 500 MG TABLET PO SCH (09:25)
[2017-11-25] MEDS: FUROSEMIDE 80 MG TABLET. PO SCH ×2 (09:25→15:56)
[2017-11-25] MEDS: CALCIUM ACETATE 667 MG CAPSULE PO SCH ×3 (09:25→15:56)
[2017-11-25] MEDS: LACTOBACILLUS RHAMNOSUS GG 1 CAPSULE. PO SCH ×2 (09:25→21:32)
[2017-11-25] MEDS: FERROUS SULFATE 325 MG TABLET. PO SCH ×2 (09:26→21:32)
[2017-11-25] MEDS: CARVEDILOL 12.5 MG TABLET. PO SCH ×2 (09:26→15:56)
[2017-11-25] MEDS: HEPARIN PF for SUB-Q USE 5,000 UNIT/0.5 ML VIAL. SQ SCH ×2 (09:31→21:40)
--- NOTE | 2017-11-25 10:01 | PDOC ---
Infectious Disease Note Subjective Subjective pt is feeling better, has not seen dr Velasco to decide ROS ROS no n/v/d/ Vital Sign Vital Signs Vital Signs Date Time Temp Pulse Resp B/P (MAP) Pulse Ox O2 Delivery O2 Flow Rate FiO2 11/25/17 09:26 85 130/64 11/25/17 07:00 98.8 18 90 Room Air 98.8 11/24/17 23:46 3.0 Physical Exam PHYSICAL EXAM GENERAL: Alert, oriented gentleman, not in distress. VITAL SIGNS: Stable, afebrile. HEENT: NAD. NECK: Supple, no JVP, no lymphadenopathy. LUNGS: Clear. HEART: S1 and S2 regular. ABDOMEN: Benign. EXTREMITIES: No edema or cyanosis. The patient does have a nicely healed TMA on the left side. Right big toe amputation is unremarkable. Second toe is a hammertoe where the distal part of the toe bends and touches the ground where he has an ulcer and there is a purulent drainage. The depth of the ulcer cannot be judged as it is a small ulcer, but simone pus is coming out. There is another ulcer on the plantar surface of the toe, which has healthy granulation tissue. Dorsalis pedis is palpable. NEUROLOGICAL: The patient is neurologically intact. Labs Lab Laboratory Tests Test 11/24/17 21:08 11/25/17 07:27 Glucose (Fingerstick) 142 mg/dL (70-99) 105 mg/dL (70-99) Micro ANAEROBIC-AEROBIC CULTURE PENDING ANAEROBIC RES 1 PENDING AEROBIC CULT PENDING AEROBIC RES 1 PENDING GRAM STAIN Final Final report GRAM STAIN RES 1 Final Comment No white blood cells seen. GRAM STAIN RES 2 Final Comment Few gram positive cocci Performed at: - [facility] [address], [place], [place] [id number] Web Site Developer: IRENA Jimenez MD, Phone: [phone] Objective Assessment Rt 2nd toe ulcer with infection ESRD Anemia DM HTN Plan Plan of Care culture vanc and zosyn partial amputation discussed, pt is going to think about it,,, this will heal without amputation but will certainly recure supportive care YANIRA GOMEZ MD Nov 25, 2017 10:01
[2017-11-25 10:42] LABS: BASO # 0.1 x10^3/uL (0.0-0.2); BASO % 1 % (0-3); EOS # 0.5 x10^3/uL (0.0-0.7); EOS % 4 % (0-3); HEMATOCRIT 21.9 % (39.0-53.0); HEMOGLOBIN 7.5 g/dL (13.0-17.5); LYMPH # 0.6 x10^3/uL (1.0-4.8); LYMPH % 5 % (24-48); MEAN CORPUSCULAR HEMOGLOBIN 30 pg (25-35); MEAN CORPUSCULAR HGB CONC 34 g/dL (31-37); MEAN CORPUSCULAR VOLUME 88 fL (79-100); MONO # 1.2 x10^3/uL (0.0-1.1); MONO % 11 % (0-9); NEUT # 9.1 x10^3uL (1.8-7.7); NEUT % 79 % (31-73); PLATELET COUNT 287 x10^3/uL (140-400); RED BLOOD COUNT 2.47 x10^6/uL (4.30-5.70); RED CELL DISTRIBUTION WIDTH 18.5 % (11.5-14.5); WHITE BLOOD COUNT 11.4 x10^3/uL (4.0-11.0)
[2017-11-25 10:59] LABS: CREATININE 4.9 mg/dL (0.7-1.3); GFR 15.2; POTASSIUM 3.8 mmol/L (3.5-5.1)
[2017-11-25 11:00] VITALS: BP 122/57
--- NOTE | 2017-11-25 12:10 | PDOC ---
Provider Note Provider Note Patient examined and case reviewed. Right second toe significant hammertoe deformity, with distal ulceration and infection, questionable tip of the distal phalanx bone involvement. I will plan outpatient debridement and hammertoe correction to be done likely next week. He can be discharged from my standpoint and we will be in touch regarding scheduling of the toe correction/debridement. KWASI VANN MD Nov 25, 2017 12:10
--- NOTE | 2017-11-25 13:48 | PDOC ---
SUBJECTIVE ROS No new concerns OBJECTIVE Vital Signs Vital Signs Date Time Temp Pulse Resp B/P (MAP) Pulse Ox O2 Delivery O2 Flow Rate FiO2 11/25/17 11:45 84 122/57 11/25/17 11:00 98.6 18 95 Nasal Cannula 1.5 98.6 I & 0 Intake and Output 11/25/17 07:00 Intake Total 780 ml Balance 780 ml Intake Oral 780 ml # Voids 1 PHYSICAL EXAM Physical Exam GENERAL: Alert, oriented gentleman, not in distress. HEENT: NAD. NECK: Supple, no JVP, no lymphadenopathy. LUNGS: Clear. HEART: S1 and S2 regular. ABDOMEN: Benign. EXTREMITIES: No edema or cyanosis. s/p TMA on the left side. NEUROLOGICAL: The patient is neurologically intact. DIAGNOSIS/ASSESSMENT Assessment & Plan ESRD - On HD [facility] He is a TTS schedule, but has been going only once a week on his own Dialysis tomorrow as per his schedule Anemia- Recd PRBC CHAMBERLAIN as per primary BM Bx earlier this year- Negative for MM as per Dr. Ricks Rt 2nd toe ulcer with infection Hypocalcemia- Chronic Low Pt asymptomatic COMMENT/RELEVANT DATA Meds Current Medications Medications (Trade) Dose Ordered Sig/Solomon Start Time Stop Time Status Last Admin Dose Admin Acetaminophen (Tylenol) 500 mg 1X PRN PRN 11/24/17 11:00 11/24/17 18:00 DC Albumin Human 200 ml @ 200 mls/hr 1X PRN PRN 11/24/17 11:00 11/24/17 16:59 DC Ascorbic Acid (Vitamin C) 500 mg DAILY 11/23/17 09:00 11/25/17 09:25 500 MG Atorvastatin Calcium (Lipitor) 20 mg QHS 11/23/17 21:00 11/24/17 20:42 20 MG Calcium Acetate (Phoslo) 1,334 mg TIDWMEALS 11/23/17 08:00 11/25/17 11:45 1,334 MG Carvedilol (Coreg) 50 mg BIDWMEALS 11/23/17 08:00 11/25/17 09:26 50 MG Clonidine HCl (Catapres) 0.1 mg 1X PRN PRN 11/24/17 11:00 11/24/17 18:00 DC Diphenhydramine HCl (Benadryl) 25 mg 1X PRN PRN 11/24/17 11:00 11/24/17 18:00 DC Ferrous Sulfate (Feosol) 325 mg BID 11/23/17 09:00 11/25/17 09:26 325 MG Folic Acid (Folic Acid) 1 mg DAILY 11/23/17 09:00 11/25/17 09:25 1 MG Furosemide (Lasix) 80 mg BID94 11/23/17 09:00 11/25/17 09:25 80 MG Heparin Sodium (Porcine) (Heparin Sq) 5,000 unit Q12HR 11/25/17 10:00 11/25/17 09:31 5,000 UNIT Info (PHARMACY MONITORING -- do not chart) 1 each PRN DAILY PRN 11/24/17 11:00 Labetalol HCl (Normodyne Iv Push) 10 mg PRN Q1HR PRN 11/24/17 11:00 11/24/17 18:00 DC Lactobacillus Rhamnosus (Culturelle) 1 cap BID 11/24/17 21:00 11/25/17 09:25 1 CAP Morphine Sulfate (Morphine Sulfate) 4 mg PRN Q2HR PRN 11/23/17 00:30 11/24/17 00:29 DC Nifedipine (Procardia Xl) 60 mg DAILY 11/23/17 09:00 11/25/17 11:45 60 MG Ondansetron HCl (Zofran) 4 mg PRN Q8HRS PRN 11/23/17 00:30 11/24/17 00:29 DC Oxycodone/ Acetaminophen (Percocet 5/325) 1 tab PRN Q4HRS PRN 11/25/17 03:30 11/25/17 03:29 1 TAB Piperacillin Sod/ Tazobactam Sod 2.25 gm/Sodium Chloride 50 ml @ 100 mls/hr Q8HRS 11/23/17 14:00 11/25/17 05:19 100 MLS/HR Sodium Chloride 1,000 ml @ 400 mls/hr Q2H30M PRN 11/24/17 11:00 11/24/17 18:00 DC Vancomycin HCl (Vanco Per Pharmacy) 1 each PRN DAILY PRN 11/23/17 13:15 11/24/17 13:33 1 EACH Vancomycin HCl (Vancomycin Random Level) 1 each 1X ONCE 11/24/17 06:00 11/24/17 06:01 DC 11/24/17 06:00 1 EACH Vancomycin HCl 500 mg/Sodium Chloride 100 ml @ 100 mls/hr QTUTHSASU 11/24/17 16:00 11/24/17 17:06 100 MLS/HR Vancomycin HCl 2 gm/Sodium Chloride 500 ml @ 250 mls/hr 1X ONCE 11/23/17 15:00 11/23/17 16:59 DC 11/23/17 16:15 250 MLS/HR Lab Laboratory Tests Test 11/24/17 21:08 11/25/17 07:27 11/25/17 09:40 11/25/17 11:37 Glucose (Fingerstick) 142 mg/dL (70-99) 105 mg/dL (70-99) 156 mg/dL (70-99) White Blood Count 11.4 x10^3/uL (4.0-11.0) Red Blood Count 2.47 x10^6/uL (4.30-5.70) Hemoglobin 7.5 g/dL (13.0-17.5) Hematocrit 21.9 % (39.0-53.0) Mean Corpuscular Volume 88 fL (79-100) Mean Corpuscular Hemoglobin 30 pg (25-35) Mean Corpuscular Hemoglobin Concent 34 g/dL (31-37) Red Cell Distribution Width 18.5 % (11.5-14.5) Platelet Count 287 x10^3/uL (140-400) Neutrophils (%) (Auto) 79 % (31-73) Lymphocytes (%) (Auto) 5 % (24-48) Monocytes (%) (Auto) 11 % (0-9) Eosinophils (%) (Auto) 4 % (0-3) Basophils (%) (Auto) 1 % (0-3) Neutrophils # (Auto) 9.1 x10^3uL (1.8-7.7) Lymphocytes # (Auto) 0.6 x10^3/uL (1.0-4.8) Monocytes # (Auto) 1.2 x10^3/uL (0.0-1.1) Eosinophils # (Auto) 0.5 x10^3/uL (0.0-0.7) Basophils # (Auto) 0.1 x10^3/uL (0.0-0.2) Sodium Level 140 mmol/L (136-145) Potassium Level 3.8 mmol/L (3.5-5.1) Chloride Level 105 mmol/L (98-107) Carbon Dioxide Level 34 mmol/L (21-32) Anion Gap 1 (6-14) Blood Urea Nitrogen 50 mg/dL (8-26) Creatinine 4.9 mg/dL (0.7-1.3) Estimated GFR (Cockcroft-Gault) 15.2 Glucose Level 177 mg/dL (70-99) Calcium Level 7.0 mg/dL (8.5-10.1) Results All relevant outside records, renal labs, imaging studies, telemetry/EKG's were reviewed. RACHANA MCCRARY MD Nov 25, 2017 13:48
[2017-11-25 15:00] VITALS: BP 131/68
[2017-11-25] MEDS: VANCOMYCIN PER PHARMACY MC PRN (15:04)
[2017-11-25 19:00] VITALS: BP 133/64
[2017-11-25] MEDS: ATORVASTATIN CALCIUM 20 MG TABLET PO SCH (21:32)
[2017-11-25 23:00] VITALS: BP 134/64
[2017-11-26 03:00] VITALS: BP 129/62
[2017-11-26] MEDS: PIPERACILLIN/TAZOBACTAM 2.25 GM in IV NORMAL SALINE 50ML 50 ML IV SCH ×3 (05:23→22:41)
[2017-11-26 07:00] VITALS: BP 125/61
[2017-11-26] MEDS ORDERED: IV NORMAL SALINE 1000ML BAG 1,000 ML IV PRN ×2 (07:56)
[2017-11-26] MEDS ORDERED: DIALYSIS PATIENT. MC PRN ×2 (08:00)
--- NOTE | 2017-11-26 09:59 | PDOC ---
Infectious Disease Note Subjective Subjective Comfortable, less right foot pain Appetite is down No BM in a few days Denies N/V/cramps No fevers Vital Sign Vital Signs Vital Signs Date Time Temp Pulse Resp B/P (MAP) Pulse Ox O2 Delivery O2 Flow Rate FiO2 11/26/17 07:00 99.0 94 16 125/61 (82) 92 Nasal Cannula 3.0 99.0 Physical Exam PHYSICAL EXAM GENERAL: Alert, oriented gentleman, not in distress. VITAL SIGNS: Stable, afebrile. HEENT: NAD. NECK: Supple, no JVP, no lymphadenopathy. LUNGS: Clear. HEART: S1 and S2 regular. ABDOMEN: Benign. EXTREMITIES: No edema or cyanosis. The patient does have a nicely healed TMA on the left side. Right big toe amputation is unremarkable. Second toe is a hammertoe where the distal part of the toe bends and touches the ground where he has an ulcer and there is a purulent drainage. The depth of the ulcer cannot be judged as it is a small ulcer, but simone pus is coming out. There is another ulcer on the plantar surface of the toe, which has healthy granulation tissue. Dorsalis pedis is palpable. NEUROLOGICAL: The patient is neurologically intact. Labs Lab Laboratory Tests Test 11/25/17 11:37 11/25/17 23:29 Glucose (Fingerstick) 156 mg/dL (70-99) 170 mg/dL (70-99) Micro Right 2nd toe AEROBIC RES 1 Preliminary Pseudomonas aeruginosa AEROBIC RES 1 Preliminary Staphylococcus aureus AEROBIC RES 2 Preliminary Gram negative rods BLOOD CULTURE Preliminary NO GROWTH AFTER 3 DAYS Objective Assessment Right 2nd toe ulcer with infection, PSA & Staph aureus so far ESRD via HDC line Anemia DM HTN Plan Plan of Care Continue vanc and Zosyn, awaiting culture results Trough 23.5 partial amputation discussed, pt is going to think about it,,, this will heal without amputation but will certainly reoccur Supportive care Attending Co-Sign The patient was seen and interviewed as well as examined at the bedside. The chart was reviewed. The case was discussed. Agree with the plan of care. KELTON KRAUS APRN Nov 26, 2017 09:59 YANIRA GOMEZ MD Nov 26, 2017 15:58
--- NOTE | 2017-11-26 11:57 | PDOC ---
Dialysis Progress Note Dialysis Note Dialysis Note Seen on Hemodialysis, tolerating treatment Okay Vitals on Hemodialysis: 133/69 83 99.4 General Appearance: Asleep on HD ; did not awaken Neck: No JVD or JVP Chest: CTA Mino Heart: S1 S2 Abdomen - Soft NTND Extremities - No Edema ESRD: Dialysis as below F 180 NR 3.5 Hrs 3 K 2.5 Ca 140 Na 30 HC03 Qb 350 + Qd 500+ Heparin 0 Units Uf 2-3 Kgs or to dry weight as tolerated May give 25-50 gms of 25% Albumin if needed to maintain Hemodynamic stability Treatment plan reviewed and discussed with central processing technician Vitals Vital Signs Vital Signs Date Time Temp Pulse Resp B/P (MAP) Pulse Ox O2 Delivery O2 Flow Rate FiO2 11/26/17 08:00 Nasal Cannula 2.0 11/26/17 07:00 99.0 94 16 125/61 (82) 92 99.0 Labs Last Labs Laboratory Tests Test 11/24/17 21:08 11/25/17 07:27 11/25/17 09:40 11/25/17 11:37 Glucose (Fingerstick) 142 mg/dL (70-99) 105 mg/dL (70-99) 156 mg/dL (70-99) White Blood Count 11.4 x10^3/uL (4.0-11.0) Red Blood Count 2.47 x10^6/uL (4.30-5.70) Hemoglobin 7.5 g/dL (13.0-17.5) Hematocrit 21.9 % (39.0-53.0) Mean Corpuscular Volume 88 fL (79-100) Mean Corpuscular Hemoglobin 30 pg (25-35) Mean Corpuscular Hemoglobin Concent 34 g/dL (31-37) Red Cell Distribution Width 18.5 % (11.5-14.5) Platelet Count 287 x10^3/uL (140-400) Neutrophils (%) (Auto) 79 % (31-73) Lymphocytes (%) (Auto) 5 % (24-48) Monocytes (%) (Auto) 11 % (0-9) Eosinophils (%) (Auto) 4 % (0-3) Basophils (%) (Auto) 1 % (0-3) Neutrophils # (Auto) 9.1 x10^3uL (1.8-7.7) Lymphocytes # (Auto) 0.6 x10^3/uL (1.0-4.8) Monocytes # (Auto) 1.2 x10^3/uL (0.0-1.1) Eosinophils # (Auto) 0.5 x10^3/uL (0.0-0.7) Basophils # (Auto) 0.1 x10^3/uL (0.0-0.2) Sodium Level 140 mmol/L (136-145) Potassium Level 3.8 mmol/L (3.5-5.1) Chloride Level 105 mmol/L (98-107) Carbon Dioxide Level 34 mmol/L (21-32) Anion Gap 1 (6-14) Blood Urea Nitrogen 50 mg/dL (8-26) Creatinine 4.9 mg/dL (0.7-1.3) Estimated GFR (Cockcroft-Gault) 15.2 Glucose Level 177 mg/dL (70-99) Calcium Level 7.0 mg/dL (8.5-10.1) Test 11/25/17 23:29 Glucose (Fingerstick) 170 mg/dL (70-99) Laboratory Tests Test 11/25/17 23:29 Glucose (Fingerstick) 170 mg/dL (70-99) Assessment Assessment Problems Medical Problems: (1) Toe infection Status: Acute Plan Plan of Care Problems Medical Problems: (1) Toe infection Status: Acute LORNE GOMEZ MD Nov 26, 2017 11:57
[2017-11-26] MEDS: CALCIUM ACETATE 667 MG CAPSULE PO SCH ×3 (12:00→16:34)
[2017-11-26] MEDS: VANCOMYCIN PER PHARMACY MC PRN (13:11)
[2017-11-26] MEDS: DICLOFENAC SODIUM 1% TOPICAL GEL 100GM TUBE. TP SCH ×2 (13:45→20:51)
[2017-11-26] MEDS: CARVEDILOL 12.5 MG TABLET. PO SCH ×2 (13:46→17:30)
[2017-11-26] MEDS: ASCORBIC ACID 500 MG TABLET PO SCH (13:47)
[2017-11-26] MEDS: LACTOBACILLUS RHAMNOSUS GG 1 CAPSULE. PO SCH ×2 (13:47→20:51)
[2017-11-26] MEDS: FUROSEMIDE 80 MG TABLET. PO SCH ×2 (13:47→16:00)
[2017-11-26] MEDS: FERROUS SULFATE 325 MG TABLET. PO SCH ×2 (13:48→20:51)
[2017-11-26] MEDS: FOLIC ACID 1 MG TABLET. PO SCH (13:48)
[2017-11-26] MEDS: HEPARIN PF for SUB-Q USE 5,000 UNIT/0.5 ML VIAL. SQ SCH ×2 (14:00→20:54)
--- NOTE | 2017-11-26 14:42 | PDOC ---
PROGRESS NOTES Chief Complaint Chief Complaint anemia symptomatic anemia, ESRD s/p 2 u PRBC small toe wound with hammartoe and ulcer, may have difficulty healing ESRD on HD Dm2, now off meds, diet controlled, has lost 40 lbs intentionally htn, chronic mild chronic diastolic CHF stable weakness and debility, acquired obesity, BMI 32 left toes and rt big toe s/p amputation plan: fu with ortho, outpt i and d? fu with id, talked to ID, wound cx + pseudomonas and staph areus, cont vanco and zosyn for now now sure if dc home with po meds soon or i and d next week when pt still in hosp. cont home meds cont HD wound care History of Present Illness History of Present Illness ROS: no fever, chills,sob or chest pain Vitals Vitals Vital Signs Date Time Temp Pulse Resp B/P (MAP) Pulse Ox O2 Delivery O2 Flow Rate FiO2 11/26/17 13:48 94 143/78 11/26/17 08:00 Nasal Cannula 2.0 11/26/17 07:00 99.0 16 92 99.0 Physical Exam Physical Exam GENERAL: Alert, oriented gentleman, not in distress. VITAL SIGNS: Stable, afebrile. HEENT: NAD. NECK: Supple, no JVP, no lymphadenopathy. LUNGS: Clear. HEART: S1 and S2 regular. ABDOMEN: Benign. EXTREMITIES: No edema or cyanosis. The patient does have a nicely healed TMA on the left side. Right big toe amputation is unremarkable. Second toe is a hammertoe where the distal part of the toe bends and touches the ground where he has an ulcer and there is a purulent drainage. The depth of the ulcer cannot be judged as it is a small ulcer, but simone pus is coming out. There is another ulcer on the plantar surface of the toe, which has healthy granulation tissue. Dorsalis pedis is palpable. NEUROLOGICAL: The patient is neurologically intact. General: Alert, Oriented X3, Cooperative, No acute distress Heart: Regular rate Lungs: Clear, Wheezing Abdomen: Soft Extremities: Normal pulses Skin: No rashes, Other (left foot TMA and right great toe amputation incisions are well-healed. There is a 1cm x 1cm wound on the tip of the right second toe. There is no active drainage at this time and no foul smell. There is a smaller wound distal to this with healthy, pink granulation tissue. There is no tenderness to palpation of the foot or toe. No erythema or warmth. Dorsalis pedis and posterior tibialis pulses are palpable, bilaterally. Diminished sensation due to chronic peripheral neuropathy. ) Labs LABS Laboratory Tests Test 11/25/17 23:29 Glucose (Fingerstick) 170 mg/dL (70-99) Assessment and Plan Assessmemt and Plan Problems Medical Problems: (1) Toe infection Status: Acute Comment Review of Relevant I have reviewed the following items donna (where applicable) has been applied. Labs Laboratory Tests Test 11/24/17 21:08 11/25/17 07:27 11/25/17 09:40 11/25/17 11:37 Glucose (Fingerstick) 142 mg/dL (70-99) 105 mg/dL (70-99) 156 mg/dL (70-99) White Blood Count 11.4 x10^3/uL (4.0-11.0) Red Blood Count 2.47 x10^6/uL (4.30-5.70) Hemoglobin 7.5 g/dL (13.0-17.5) Hematocrit 21.9 % (39.0-53.0) Mean Corpuscular Volume 88 fL (79-100) Mean Corpuscular Hemoglobin 30 pg (25-35) Mean Corpuscular Hemoglobin Concent 34 g/dL (31-37) Red Cell Distribution Width 18.5 % (11.5-14.5) Platelet Count 287 x10^3/uL (140-400) Neutrophils (%) (Auto) 79 % (31-73) Lymphocytes (%) (Auto) 5 % (24-48) Monocytes (%) (Auto) 11 % (0-9) Eosinophils (%) (Auto) 4 % (0-3) Basophils (%) (Auto) 1 % (0-3) Neutrophils # (Auto) 9.1 x10^3uL (1.8-7.7) Lymphocytes # (Auto) 0.6 x10^3/uL (1.0-4.8) Monocytes # (Auto) 1.2 x10^3/uL (0.0-1.1) Eosinophils # (Auto) 0.5 x10^3/uL (0.0-0.7) Basophils # (Auto) 0.1 x10^3/uL (0.0-0.2) Sodium Level 140 mmol/L (136-145) Potassium Level 3.8 mmol/L (3.5-5.1) Chloride Level 105 mmol/L (98-107) Carbon Dioxide Level 34 mmol/L (21-32) Anion Gap 1 (6-14) Blood Urea Nitrogen 50 mg/dL (8-26) Creatinine 4.9 mg/dL (0.7-1.3) Estimated GFR (Cockcroft-Gault) 15.2 Glucose Level 177 mg/dL (70-99) Calcium Level 7.0 mg/dL (8.5-10.1) Test 11/25/17 23:29 Glucose (Fingerstick) 170 mg/dL (70-99) Laboratory Tests Test 11/25/17 23:29 Glucose (Fingerstick) 170 mg/dL (70-99) Microbiology 11/22/17 Blood Culture - Preliminary, Resulted NO GROWTH AFTER 3 DAYS 11/23/17 Anaerobic/Aerobic Culture - Preliminary, Resulted 11/23/17 Anaerobic Culture Result 1 (SEN) - Preliminary, Resulted 11/23/17 Aerobic Culture - Preliminary, Resulted 11/23/17 Aerobic Culture Result 1 (SEN) - Preliminary, Resulted 11/23/17 Aerobic Culture Result 2 (SEN) - Preliminary, Resulted 11/23/17 Gram Stain - Final, Resulted 11/23/17 Gram Stain Result 1 (SEN) - Final, Resulted 11/23/17 Gram Stain Result 2 (SEN) - Final, Resulted Medications Current Medications Ondansetron HCl (Zofran) 4 mg PRN Q8HRS PRN IV NAUSEA/VOMITING 1ST CHOICE; Start 11/23/17 at 00:30; Stop 11/24/17 at 00:29; Status DC Morphine Sulfate (Morphine Sulfate) 4 mg PRN Q2HR PRN IV SEVERE PAIN; Start at 00:30; Stop 11/24/17 at 00:29; Status DC Ascorbic Acid (Vitamin C) 500 mg DAILY PO Last administered on 11/26/17at 13:47 ; Start 11/23/17 at 09:00 Atorvastatin Calcium (Lipitor) 20 mg QHS PO Last administered on 11/25/17at 21: 32; Start 11/23/17 at 21:00 Ferrous Sulfate (Feosol) 325 mg BID PO Last administered on 11/26/17 13:48; Start 11/23/17 at 09:00 Folic Acid (Folic Acid) 1 mg DAILY PO Last administered on 11/26/17 13:48; Start 11/23/17 at 09:00 Furosemide (Lasix) 80 mg BID94 PO Last administered on 11/26/17 13:47; Start 11/23/17 at 09:00 Carvedilol (Coreg) 50 mg BIDWMEALS PO Last administered on 11/26/17 13:46; Start 11/23/17 at 08:00 Nifedipine (Procardia Xl) 60 mg DAILY PO Last administered on 11/26/17 13:48; Start 11/23/17 at 09:00 Calcium Acetate (Phoslo) 1,334 mg TIDWMEALS PO Last administered on 11/26/17 13:46; Start 11/23/17 at 08:00 Vancomycin HCl (Vanco Per Pharmacy) 1 each PRN DAILY PRN MC SEE COMMENTS Last administered on 11/26/17 13:11; Start 11/23/17 at 13:15 Piperacillin Sod/ Tazobactam Sod 2.25 gm/Sodium Chloride 50 ml @ 100 mls/hr Q8HRS IV Last administered on 11/26/17 13:48; Start 11/23/17 at 14:00 Vancomycin HCl 2 gm/Sodium Chloride 500 ml @ 250 mls/hr 1X ONCE IV Last administered on 11/23/17 16:15; Start 11/23/17 at 15:00; Stop 11/23/17 at 16:59 ; Status DC Vancomycin HCl (Vancomycin Random Level) 1 each 1X ONCE MC Last administered on 11/24/17at 06:00; Start 11/24/17 at 06:00; Stop 11/24/17 at 06:01; Status DC Sodium Chloride 1,000 ml @ 1,000 mls/hr Q1H PRN IV hypotension; Start 11/24/17 at 11:00; Stop 11/24/17 at 18:00; Status DC Albumin Human 200 ml @ 200 mls/hr 1X PRN PRN IV Hypotension; Start 11/24/17 at 11:00; Stop 11/24/17 at 16:59; Status DC Acetaminophen (Tylenol) 500 mg 1X PRN PRN PO MILD PAIN / TEMP; Start 11/24/17 at 11:00; Stop 11/24/17 at 18:00; Status DC Diphenhydramine HCl (Benadryl) 25 mg 1X PRN PRN IV ITCHING; Start 11/24/17 at 11:00; Stop 11/24/17 at 18:00; Status DC Diphenhydramine HCl (Benadryl) 25 mg 1X PRN PRN IV ITCHING; Start 11/24/17 at 11:00; Stop 11/24/17 at 18:00; Status DC Labetalol HCl (Normodyne Iv Push) 10 mg PRN Q1HR PRN IVP SBP > 180; Start 11/24 at 11:00; Stop 11/24/17 at 18:00; Status DC Clonidine HCl (Catapres) 0.1 mg 1X PRN PRN PO SBP > 180; Start 11/24/17 at 11: 00; Stop 11/24/17 at 18:00; Status DC Sodium Chloride 1,000 ml @ 400 mls/hr Q2H30M PRN IV PATENCY; Start 11/24/17 at 11:00; Stop 11/24/17 at 18:00; Status DC Info (PHARMACY MONITORING -- do not chart) 1 each PRN DAILY PRN MC SEE COMMENTS ; Start 11/24/17 at 11:00 Vancomycin HCl 500 mg/Sodium Chloride 100 ml @ 100 mls/hr QTUTHSASU IV Last administered on 11/24/17at 17:06; Start 11/24/17 at 16:00; Stop 11/26/17 at 13:15 ; Status DC Lactobacillus Rhamnosus (Culturelle) 1 cap BID PO Last administered on at 13:47; Start 11/24/17 at 21:00 Oxycodone/ Acetaminophen (Percocet 5/325) 1 tab PRN Q4HRS PRN PO PAIN Last administered on 11/25/17at 21:32; Start 11/25/17 at 03:30 Heparin Sodium (Porcine) (Heparin Sq) 5,000 unit Q12HR SQ Last administered on 11/26/17at 14:00; Start 11/25/17 at 10:00 Sodium Chloride 1,000 ml @ 1,000 mls/hr Q1H PRN IV hypotension; Start 11/26/17 at 07:56; Stop 11/26/17 at 13:55; Status DC Sodium Chloride 1,000 ml @ 400 mls/hr Q2H30M PRN IV PATENCY; Start 11/26/17 at 07:56; Stop 11/26/17 at 19:55 Info (PHARMACY MONITORING -- do not chart) 1 each PRN DAILY PRN MC SEE COMMENTS ; Start 11/26/17 at 08:00; Stop 11/26/17 at 08:03; Status DC Info (PHARMACY MONITORING -- do not chart) 1 each PRN DAILY PRN MC SEE COMMENTS ; Start 11/26/17 at 08:00; Stop 11/26/17 at 08:03; Status DC Diclofenac Sodium (Voltaren) 1 rowan BID TP Last administered on 11/26/17at 13:45 ; Start 11/26/17 at 10:45 Vancomycin HCl 500 mg/Sodium Chloride 100 ml @ 100 mls/hr QTUTHSA IV ; Start at 16:00 Active Scripts Active [Calcium Acetate] 667 MG Capsule 1,334 Mg PO TIDWMEALS 30 Days Reported Ascorbic Acid 500 Mg Tablet 500 Mg PO Catapres-Tts 1 (Clonidine) 1 Each Patch.tdwk 1 Each TD QTU Lipitor (Atorvastatin Calcium) 20 Mg Tablet 20 Mg PO DAILY Carvedilol 25 Mg Tablet 50 Mg PO BIDWMEALS Vitamin D2 (Ergocalciferol (Vitamin D2)) 50,000 Unit Capsule 50,000 Unit PO QSU Ferrous Sulfate 325 Mg Tablet 325 Mg PO BID Folic Acid 1 Mg Tablet 1 Mg PO DAILY Procardia Xl (Nifedipine) 60 Mg Tab.er.24 60 Mg PO DAILY Furosemide 80 Mg Tablet 80 Mg PO BID Vitals/I & O Vital Sign - Last 24 Hours 11/25/17 11/25/17 11/25/17 11/25/17 15:00 15:56 19:00 19:40 Temp 99.2 99.6 99.2 99.6 Pulse 86 86 86 Resp 18 18 B/P (MAP) 131/68 (89) 131/68 133/64 (87) Pulse Ox 86 95 O2 Delivery Nasal Cannula Nasal Cannula Nasal Cannula O2 Flow Rate 1.5 1.5 2.0 11/25/17 11/25/17 11/25/17 11/26/17 21:32 22:32 23:00 03:00 Temp 99.8 99.8 99.8 99.8 Pulse 89 93 Resp 20 20 18 18 B/P (MAP) 134/64 (87) 129/62 (84) Pulse Ox 96 93 O2 Delivery Nasal Cannula Nasal Cannula Nasal Cannula Nasal Cannula O2 Flow Rate 2.0 2.0 1.5 1.5 11/26/17 11/26/17 11/26/17 11/26/17 07:00 08:00 13:46 13:48 Temp 99.0 99.0 Pulse 94 94 94 Resp 16 B/P (MAP) 125/61 (82) 143/72 143/78 Pulse Ox 92 O2 Delivery Nasal Cannula Nasal Cannula O2 Flow Rate 3.0 2.0 Intake and Output 11/25/17 11/25/17 11/26/17 15:00 23:00 07:00 Intake Total 250 ml Balance 250 ml JUSTEN DIEZ MD Nov 26, 2017 14:42
[2017-11-26] MEDS ORDERED: DOCUSATE SODIUM 100 MG CAPSULE. PO PRN (14:45)
[2017-11-26] MEDS ORDERED: ACETAMINOPHEN 325 MG TABLET. PO PRN (14:45)
[2017-11-26] MEDS ORDERED: MORPHINE SULFATE 2 MG/ML VIAL. IV PRN (14:45)
[2017-11-26] MEDS ORDERED: ONDANSETRON PF 4 MG/2 ML VIAL. IV PRN (14:45)
[2017-11-26 16:00] VITALS: BP 135/65
[2017-11-26] MEDS ORDERED: VANCOMYCIN 500 MG in IV NORMAL SALINE 100ML 100 ML IV SCH (16:00)
[2017-11-26] MEDS: traMADol 50 MG TABLET PO PRN (17:30)
[2017-11-26 19:00] VITALS: BP 112/53
[2017-11-26] MEDS: ATORVASTATIN CALCIUM 20 MG TABLET PO SCH (20:51)
[2017-11-26] MEDS: oxyCODONE/APAP 5/325 1 TAB TABLET PO PRN (20:51)
[2017-11-26 23:00] VITALS: BP 115/50
[2017-11-27] VITALS (12 sets, daily range): BP systolic 104–124; BP diastolic 49–67
[2017-11-27] MEDS: PIPERACILLIN/TAZOBACTAM 2.25 GM in IV NORMAL SALINE 50ML 50 ML IV SCH ×3 (05:11→21:39)
[2017-11-27 05:29] LABS: BASO # 0.1 x10^3/uL (0.0-0.2); BASO % 1 % (0-3); EOS # 0.5 x10^3/uL (0.0-0.7); EOS % 4 % (0-3); LYMPH % 8 % (24-48); MEAN CORPUSCULAR HEMOGLOBIN 31 pg (25-35); MEAN CORPUSCULAR HGB CONC 35 g/dL (31-37); MEAN CORPUSCULAR VOLUME 87 fL (79-100); MONO # 1.7 x10^3/uL (0.0-1.1); MONO % 14 % (0-9); NEUT # 8.9 x10^3uL (1.8-7.7); NEUT % 73 % (31-73); PLATELET COUNT 305 x10^3/uL (140-400); RED BLOOD COUNT 2.09 x10^6/uL (4.30-5.70); RED CELL DISTRIBUTION WIDTH 31.1 % (11.5-14.5); WHITE BLOOD COUNT 12.2 x10^3/uL (4.0-11.0)
[2017-11-27 05:48] LABS: HEMOGLOBIN 6.4 g/dL (13.0-17.5)
[2017-11-27 05:49] LABS: HEMATOCRIT 18.1 % (39.0-53.0)
[2017-11-27 06:01] LABS: CALCIUM 7.9 mg/dL (8.5-10.1); GFR 14.8; POTASSIUM 4.2 mmol/L (3.5-5.1)
--- NOTE | 2017-11-27 07:54 | PDOC ---
Infectious Disease Note Subjective Subjective Comfortable, less right foot pain Appetite is down No BM in a few days Denies N/V/cramps No fevers Vital Sign Vital Signs Vital Signs Date Time Temp Pulse Resp B/P (MAP) Pulse Ox O2 Delivery O2 Flow Rate FiO2 11/27/17 03:00 99.3 89 18 121/50 (73) 91 Room Air 99.3 11/26/17 19:00 3.0 Physical Exam PHYSICAL EXAM GENERAL: Alert, oriented gentleman, not in distress. VITAL SIGNS: Stable, afebrile. HEENT: NAD. NECK: Supple, no JVP, no lymphadenopathy. LUNGS: Clear. HEART: S1 and S2 regular. ABDOMEN: Benign. EXTREMITIES: No edema or cyanosis. The patient does have a nicely healed TMA on the left side. Right big toe amputation is unremarkable. Second toe is a hammertoe where the distal part of the toe bends and touches the ground where he has an ulcer and there is a purulent drainage. The depth of the ulcer cannot be judged as it is a small ulcer, but simone pus is coming out. There is another ulcer on the plantar surface of the toe, which has healthy granulation tissue. Dorsalis pedis is palpable. NEUROLOGICAL: The patient is neurologically intact. Labs Lab Laboratory Tests Test 11/26/17 17:54 11/27/17 04:25 Glucose (Fingerstick) 117 mg/dL (70-99) White Blood Count 12.2 x10^3/uL (4.0-11.0) Red Blood Count 2.09 x10^6/uL (4.30-5.70) Hemoglobin 6.4 g/dL (13.0-17.5) Hematocrit 18.1 % (39.0-53.0) Mean Corpuscular Volume 87 fL (79-100) Mean Corpuscular Hemoglobin 31 pg (25-35) Mean Corpuscular Hemoglobin Concent 35 g/dL (31-37) Red Cell Distribution Width 31.1 % (11.5-14.5) Platelet Count 305 x10^3/uL (140-400) Neutrophils (%) (Auto) 73 % (31-73) Lymphocytes (%) (Auto) 8 % (24-48) Monocytes (%) (Auto) 14 % (0-9) Eosinophils (%) (Auto) 4 % (0-3) Basophils (%) (Auto) 1 % (0-3) Neutrophils # (Auto) 8.9 x10^3uL (1.8-7.7) Lymphocytes # (Auto) 1.0 x10^3/uL (1.0-4.8) Monocytes # (Auto) 1.7 x10^3/uL (0.0-1.1) Eosinophils # (Auto) 0.5 x10^3/uL (0.0-0.7) Basophils # (Auto) 0.1 x10^3/uL (0.0-0.2) Sodium Level 136 mmol/L (136-145) Potassium Level 4.2 mmol/L (3.5-5.1) Chloride Level 101 mmol/L (98-107) Carbon Dioxide Level 29 mmol/L (21-32) Anion Gap 6 (6-14) Blood Urea Nitrogen 38 mg/dL (8-26) Creatinine 5.0 mg/dL (0.7-1.3) Estimated GFR (Cockcroft-Gault) 14.8 Glucose Level 125 mg/dL (70-99) Calcium Level 7.9 mg/dL (8.5-10.1) Micro AEROBIC RES 2 Final (continued) Pseudomonas aeruginosa 1+ ANTIMICROBIAL SUSCEPTIBILITY Final Comment S = Susceptible; I = Intermediate; R = Resistant P = Positive; N = Negative MICS are expressed in micrograms per mL Antibiotic RSLT#1 RSLT#2 RSLT#3 RSLT#4 Amikacin S =4 Cefepime S =8 Ceftazidime S =4 Ciprofloxacin R>=8 S<=0.25 Clindamycin R>=8 Erythromycin R>=8 Gentamicin S<=0.5 S =4 Imipenem S<=1 Levofloxacin R>=8 S =1 Linezolid S =2 Meropenem S<=0.25 Moxifloxacin R =4 Oxacillin S =0.5 Piperacillin S =8 Quinupristin/Dalfopristin S =0.5 Rifampin S<=0.5 Tetracycline S<=1 Ticarcillin S =32 Tobramycin S<=1 Trimethoprim/Sulfa S<=10 Vancomycin S<=0.5 GRAM STAIN Final Final report GRAM STAIN RES 1 Final Comment No white blood cells seen. GRAM STAIN RES 2 Final Comment CONTINUED ON NEXT PAGE RUN DATE: 11/26/17 PAGE 3 RUN TIME: 1710 [facility] Laboratory Objective Assessment Rt 2nd toe ulcer with infection ESRD Anemia DM HTN Plan Plan of Care change to po keflex and levaquin d/c YANIRA Joy MD Nov 27, 2017 07:54
[2017-11-27] MEDS: CARVEDILOL 12.5 MG TABLET. PO SCH ×2 (08:00→16:53)
[2017-11-27] MEDS: FOLIC ACID 1 MG TABLET. PO SCH (09:40)
[2017-11-27] MEDS: FUROSEMIDE 80 MG TABLET. PO SCH ×2 (09:40→16:51)
[2017-11-27] MEDS: ASCORBIC ACID 500 MG TABLET PO SCH (09:40)
[2017-11-27] MEDS: CALCIUM ACETATE 667 MG CAPSULE PO SCH ×3 (09:41→16:51)
[2017-11-27] MEDS: LACTOBACILLUS RHAMNOSUS GG 1 CAPSULE. PO SCH ×2 (09:41→21:38)
[2017-11-27] MEDS: FERROUS SULFATE 325 MG TABLET. PO SCH ×2 (09:41→21:38)
[2017-11-27] MEDS: DICLOFENAC SODIUM 1% TOPICAL GEL 100GM TUBE. TP SCH ×2 (09:44→21:38)
[2017-11-27] MEDS: traMADol 50 MG TABLET PO PRN ×4 (10:02→23:52)
[2017-11-27] MEDS ORDERED: DEXTROSE 50% 25 GM / 50ML DISP.SYRIN. IV PRN (12:30)
[2017-11-27] MEDS: predniSONE 20 MG TABLET PO SCH (12:45)
[2017-11-27] MEDS: VANCOMYCIN PER PHARMACY MC PRN (12:45)
[2017-11-27] MEDS: HEPARIN PF for SUB-Q USE 5,000 UNIT/0.5 ML VIAL. SQ SCH ×2 (12:50→21:39)
--- NOTE | 2017-11-27 14:00 | PDOC ---
PROGRESS NOTES Chief Complaint Chief Complaint anemia symptomatic anemia, ESRD s/p 3 u PRBC small toe wound with hammartoe and ulcer, may have difficulty healing ESRD on HD Dm2, now off meds, diet controlled, has lost 40 lbs intentionally htn, chronic mild chronic diastolic CHF stable weakness and debility, acquired obesity, BMI 32 left toes and rt big toe s/p amputation gout plan: fu with ortho, outpt i and d? fu with id, talked to ID, wound cx + pseudomonas and staph areus, cont vanco and zosyn , change to kefelx and levaquin as per ID dc home with po meds tmr or i and d next week when pt still in hosp. cont home meds cont HD wound care gout, add prednisone x3ds History of Present Illness History of Present Illness ROS: no fever, chills,sob or chest pain HB<7 todAY right wrist left ankle gout pain Vitals Vitals Vital Signs Date Time Temp Pulse Resp B/P (MAP) Pulse Ox O2 Delivery O2 Flow Rate FiO2 11/27/17 13:30 97.3 74 18 122/63 97.3 11/27/17 11:10 95 Room Air 11/27/17 10:02 3.0 Physical Exam Physical Exam GENERAL: Alert, oriented gentleman, not in distress. VITAL SIGNS: Stable, afebrile. HEENT: NAD. NECK: Supple, no JVP, no lymphadenopathy. LUNGS: Clear. HEART: S1 and S2 regular. ABDOMEN: Benign. EXTREMITIES: No edema or cyanosis. The patient does have a nicely healed TMA on the left side. Right big toe amputation is unremarkable. Second toe is a hammertoe where the distal part of the toe bends and touches the ground where he has an ulcer and there is a purulent drainage. The depth of the ulcer cannot be judged as it is a small ulcer, but simone pus is coming out. There is another ulcer on the plantar surface of the toe, which has healthy granulation tissue. Dorsalis pedis is palpable. NEUROLOGICAL: The patient is neurologically intact. General: Alert, Oriented X3, Cooperative, No acute distress Heart: Regular rate Lungs: Clear, Wheezing Abdomen: Soft Extremities: Normal pulses Skin: No rashes, Other (left foot TMA and right great toe amputation incisions are well-healed. There is a 1cm x 1cm wound on the tip of the right second toe. There is no active drainage at this time and no foul smell. There is a smaller wound distal to this with healthy, pink granulation tissue. There is no tenderness to palpation of the foot or toe. No erythema or warmth. Dorsalis pedis and posterior tibialis pulses are palpable, bilaterally. Diminished sensation due to chronic peripheral neuropathy. ) Labs LABS Laboratory Tests Test 11/26/17 17:54 11/27/17 04:25 11/27/17 11:38 Glucose (Fingerstick) 117 mg/dL (70-99) 156 mg/dL (70-99) White Blood Count 12.2 x10^3/uL (4.0-11.0) Red Blood Count 2.09 x10^6/uL (4.30-5.70) Hemoglobin 6.4 g/dL (13.0-17.5) Hematocrit 18.1 % (39.0-53.0) Mean Corpuscular Volume 87 fL (79-100) Mean Corpuscular Hemoglobin 31 pg (25-35) Mean Corpuscular Hemoglobin Concent 35 g/dL (31-37) Red Cell Distribution Width 31.1 % (11.5-14.5) Platelet Count 305 x10^3/uL (140-400) Neutrophils (%) (Auto) 73 % (31-73) Lymphocytes (%) (Auto) 8 % (24-48) Monocytes (%) (Auto) 14 % (0-9) Eosinophils (%) (Auto) 4 % (0-3) Basophils (%) (Auto) 1 % (0-3) Neutrophils # (Auto) 8.9 x10^3uL (1.8-7.7) Lymphocytes # (Auto) 1.0 x10^3/uL (1.0-4.8) Monocytes # (Auto) 1.7 x10^3/uL (0.0-1.1) Eosinophils # (Auto) 0.5 x10^3/uL (0.0-0.7) Basophils # (Auto) 0.1 x10^3/uL (0.0-0.2) Sodium Level 136 mmol/L (136-145) Potassium Level 4.2 mmol/L (3.5-5.1) Chloride Level 101 mmol/L (98-107) Carbon Dioxide Level 29 mmol/L (21-32) Anion Gap 6 (6-14) Blood Urea Nitrogen 38 mg/dL (8-26) Creatinine 5.0 mg/dL (0.7-1.3) Estimated GFR (Cockcroft-Gault) 14.8 Glucose Level 125 mg/dL (70-99) Calcium Level 7.9 mg/dL (8.5-10.1) Assessment and Plan Assessmemt and Plan Problems Medical Problems: (1) Toe infection Status: Acute Comment Review of Relevant I have reviewed the following items donna (where applicable) has been applied. Labs Laboratory Tests Test 11/25/17 23:29 11/26/17 17:54 11/27/17 04:25 11/27/17 11:38 Glucose (Fingerstick) 170 mg/dL (70-99) 117 mg/dL (70-99) 156 mg/dL (70-99) White Blood Count 12.2 x10^3/uL (4.0-11.0) Red Blood Count 2.09 x10^6/uL (4.30-5.70) Hemoglobin 6.4 g/dL (13.0-17.5) Hematocrit 18.1 % (39.0-53.0) Mean Corpuscular Volume 87 fL (79-100) Mean Corpuscular Hemoglobin 31 pg (25-35) Mean Corpuscular Hemoglobin Concent 35 g/dL (31-37) Red Cell Distribution Width 31.1 % (11.5-14.5) Platelet Count 305 x10^3/uL (140-400) Neutrophils (%) (Auto) 73 % (31-73) Lymphocytes (%) (Auto) 8 % (24-48) Monocytes (%) (Auto) 14 % (0-9) Eosinophils (%) (Auto) 4 % (0-3) Basophils (%) (Auto) 1 % (0-3) Neutrophils # (Auto) 8.9 x10^3uL (1.8-7.7) Lymphocytes # (Auto) 1.0 x10^3/uL (1.0-4.8) Monocytes # (Auto) 1.7 x10^3/uL (0.0-1.1) Eosinophils # (Auto) 0.5 x10^3/uL (0.0-0.7) Basophils # (Auto) 0.1 x10^3/uL (0.0-0.2) Sodium Level 136 mmol/L (136-145) Potassium Level 4.2 mmol/L (3.5-5.1) Chloride Level 101 mmol/L (98-107) Carbon Dioxide Level 29 mmol/L (21-32) Anion Gap 6 (6-14) Blood Urea Nitrogen 38 mg/dL (8-26) Creatinine 5.0 mg/dL (0.7-1.3) Estimated GFR (Cockcroft-Gault) 14.8 Glucose Level 125 mg/dL (70-99) Calcium Level 7.9 mg/dL (8.5-10.1) Laboratory Tests Test 11/26/17 17:54 11/27/17 04:25 11/27/17 11:38 Glucose (Fingerstick) 117 mg/dL (70-99) 156 mg/dL (70-99) White Blood Count 12.2 x10^3/uL (4.0-11.0) Red Blood Count 2.09 x10^6/uL (4.30-5.70) Hemoglobin 6.4 g/dL (13.0-17.5) Hematocrit 18.1 % (39.0-53.0) Mean Corpuscular Volume 87 fL (79-100) Mean Corpuscular Hemoglobin 31 pg (25-35) Mean Corpuscular Hemoglobin Concent 35 g/dL (31-37) Red Cell Distribution Width 31.1 % (11.5-14.5) Platelet Count 305 x10^3/uL (140-400) Neutrophils (%) (Auto) 73 % (31-73) Lymphocytes (%) (Auto) 8 % (24-48) Monocytes (%) (Auto) 14 % (0-9) Eosinophils (%) (Auto) 4 % (0-3) Basophils (%) (Auto) 1 % (0-3) Neutrophils # (Auto) 8.9 x10^3uL (1.8-7.7) Lymphocytes # (Auto) 1.0 x10^3/uL (1.0-4.8) Monocytes # (Auto) 1.7 x10^3/uL (0.0-1.1) Eosinophils # (Auto) 0.5 x10^3/uL (0.0-0.7) Basophils # (Auto) 0.1 x10^3/uL (0.0-0.2) Sodium Level 136 mmol/L (136-145) Potassium Level 4.2 mmol/L (3.5-5.1) Chloride Level 101 mmol/L (98-107) Carbon Dioxide Level 29 mmol/L (21-32) Anion Gap 6 (6-14) Blood Urea Nitrogen 38 mg/dL (8-26) Creatinine 5.0 mg/dL (0.7-1.3) Estimated GFR (Cockcroft-Gault) 14.8 Glucose Level 125 mg/dL (70-99) Calcium Level 7.9 mg/dL (8.5-10.1) Microbiology 11/22/17 Blood Culture - Preliminary, Resulted NO GROWTH AFTER 4 DAYS 11/23/17 Anaerobic/Aerobic Culture - Preliminary, Resulted 11/23/17 Anaerobic Culture Result 1 (SEN) - Preliminary, Resulted 11/23/17 Aerobic Culture - Final, Resulted 11/23/17 Aerobic Culture Result 1 (SEN) - Final, Resulted 11/23/17 Aerobic Culture Result 2 (SEN) - Final, Resulted 11/23/17 Antimicrobic Susceptibility - Final, Resulted 11/23/17 Gram Stain - Final, Resulted 11/23/17 Gram Stain Result 1 (SEN) - Final, Resulted 11/23/17 Gram Stain Result 2 (SEN) - Final, Resulted Medications Current Medications Ondansetron HCl (Zofran) 4 mg PRN Q8HRS PRN IV NAUSEA/VOMITING 1ST CHOICE; Start 11/23/17 at 00:30; Stop 11/24/17 at 00:29; Status DC Morphine Sulfate (Morphine Sulfate) 4 mg PRN Q2HR PRN IV SEVERE PAIN; Start at 00:30; Stop 11/24/17 at 00:29; Status DC Ascorbic Acid (Vitamin C) 500 mg DAILY PO Last administered on 11/27/17at 09:40 ; Start 11/23/17 at 09:00 Atorvastatin Calcium (Lipitor) 20 mg QHS PO Last administered on 11/26/17at 20: 51; Start 11/23/17 at 21:00 Ferrous Sulfate (Feosol) 325 mg BID PO Last administered on 11/27/17at 09:41; Start 11/23/17 at 09:00 Folic Acid (Folic Acid) 1 mg DAILY PO Last administered on 11/27/17at 09:40; Start 11/23/17 at 09:00 Furosemide (Lasix) 80 mg BID94 PO Last administered on 11/27/17at 09:40; Start 11/23/17 at 09:00 Carvedilol (Coreg) 50 mg BIDWMEALS PO Last administered on 11/26/17at 17:30; Start 11/23/17 at 08:00 Nifedipine (Procardia Xl) 60 mg DAILY PO Last administered on 11/26/17at 13:48; Start 11/23/17 at 09:00 Calcium Acetate (Phoslo) 1,334 mg TIDWMEALS PO Last administered on 11/27/17at 11:51; Start 11/23/17 at 08:00 Vancomycin HCl (Vanco Per Pharmacy) 1 each PRN DAILY PRN MC SEE COMMENTS Last administered on 11/27/17at 12:45; Start 11/23/17 at 13:15 Piperacillin Sod/ Tazobactam Sod 2.25 gm/Sodium Chloride 50 ml @ 100 mls/hr Q8HRS IV Last administered on 11/27/17at 05:11; Start 11/23/17 at 14:00 Vancomycin HCl 2 gm/Sodium Chloride 500 ml @ 250 mls/hr 1X ONCE IV Last administered on 11/23/17at 16:15; Start 11/23/17 at 15:00; Stop 11/23/17 at 16:59 ; Status DC Vancomycin HCl (Vancomycin Random Level) 1 each 1X ONCE MC Last administered on 11/24/17at 06:00; Start 11/24/17 at 06:00; Stop 11/24/17 at 06:01; Status DC Sodium Chloride 1,000 ml @ 1,000 mls/hr Q1H PRN IV hypotension; Start 11/24/17 at 11:00; Stop 11/24/17 at 18:00; Status DC Albumin Human 200 ml @ 200 mls/hr 1X PRN PRN IV Hypotension; Start 11/24/17 at 11:00; Stop 11/24/17 at 16:59; Status DC Acetaminophen (Tylenol) 500 mg 1X PRN PRN PO MILD PAIN / TEMP; Start 11/24/17 at 11:00; Stop 11/24/17 at 18:00; Status DC Diphenhydramine HCl (Benadryl) 25 mg 1X PRN PRN IV ITCHING; Start 11/24/17 at 11:00; Stop 11/24/17 at 18:00; Status DC Diphenhydramine HCl (Benadryl) 25 mg 1X PRN PRN IV ITCHING; Start 11/24/17 at 11:00; Stop 11/24/17 at 18:00; Status DC Labetalol HCl (Normodyne Iv Push) 10 mg PRN Q1HR PRN IVP SBP > 180; Start 11/24 at 11:00; Stop 11/24/17 at 18:00; Status DC Clonidine HCl (Catapres) 0.1 mg 1X PRN PRN PO SBP > 180; Start 11/24/17 at 11: 00; Stop 11/24/17 at 18:00; Status DC Sodium Chloride 1,000 ml @ 400 mls/hr Q2H30M PRN IV PATENCY; Start 11/24/17 at 11:00; Stop 11/24/17 at 18:00; Status DC Info (PHARMACY MONITORING -- do not chart) 1 each PRN DAILY PRN MC SEE COMMENTS ; Start 11/24/17 at 11:00 Vancomycin HCl 500 mg/Sodium Chloride 100 ml @ 100 mls/hr QTUTHSASU IV Last administered on 11/24/17at 17:06; Start 11/24/17 at 16:00; Stop 11/26/17 at 13:15 ; Status DC Lactobacillus Rhamnosus (Culturelle) 1 cap BID PO Last administered on at 09:41; Start 11/24/17 at 21:00 Oxycodone/ Acetaminophen (Percocet 5/325) 1 tab PRN Q4HRS PRN PO SEVERE PAIN Last administered on 11/26/17at 20:51; Start 11/25/17 at 03:30 Heparin Sodium (Porcine) (Heparin Sq) 5,000 unit Q12HR SQ Last administered on 11/27/17at 12:50; Start 11/25/17 at 10:00 Sodium Chloride 1,000 ml @ 1,000 mls/hr Q1H PRN IV hypotension; Start 11/26/17 at 07:56; Stop 11/26/17 at 13:55; Status DC Sodium Chloride 1,000 ml @ 400 mls/hr Q2H30M PRN IV PATENCY; Start 11/26/17 at 07:56; Stop 11/26/17 at 19:55; Status DC Info (PHARMACY MONITORING -- do not chart) 1 each PRN DAILY PRN MC SEE COMMENTS ; Start 11/26/17 at 08:00; Stop 11/26/17 at 08:03; Status DC Info (PHARMACY MONITORING -- do not chart) 1 each PRN DAILY PRN MC SEE COMMENTS ; Start 11/26/17 at 08:00; Stop 11/26/17 at 08:03; Status DC Diclofenac Sodium (Voltaren) 1 rowan BID TP Last administered on 11/27/17at 09:44 ; Start 11/26/17 at 10:45 Vancomycin HCl 500 mg/Sodium Chloride 100 ml @ 100 mls/hr QTUTHSA IV Last administered on 11/26/17at 16:00; Start 11/26/17 at 16:00 Acetaminophen (Tylenol) 650 mg PRN Q6HRS PRN PO FEVER; Start 11/26/17 at 14:45 Ondansetron HCl (Zofran) 4 mg PRN Q6HRS PRN IV NAUSEA/VOMITING; Start 11/26/17 at 14:45 Morphine Sulfate (Morphine Sulfate) 2 mg PRN Q2HR PRN IV MODERATE TO SEVERE PAIN; Start 11/26/17 at 14:45 Tramadol HCl (Ultram) 50 mg PRN Q6HRS PRN PO MILD TO MODERATE PAIN Last administered on 11/27/17at 10:02; Start 11/26/17 at 14:45 Docusate Sodium (Colace) 100 mg PRN DAILY PRN PO CONSTIPATION; Start 11/26/17 at 14:45 Insulin Human Lispro (HumaLOG) 0-9 UNITS TIDWMEALS SQ ; Start 11/27/17 at 17:00 Dextrose (Dextrose 50%-Water Syringe) 12.5 gm PRN Q15MIN PRN IV SEE COMMENTS; Start 11/27/17 at 12:30 Prednisone (Prednisone) 20 mg DAILY PO Last administered on 11/27/17at 12:45; Start 11/27/17 at 12:30; Stop 11/30/17 at 12:29 Active Scripts Active [Calcium Acetate] 667 MG Capsule 1,334 Mg PO TIDWMEALS 30 Days Reported Ascorbic Acid 500 Mg Tablet 500 Mg PO Catapres-Tts 1 (Clonidine) 1 Each Patch.tdwk 1 Each TD QTU Lipitor (Atorvastatin Calcium) 20 Mg Tablet 20 Mg PO DAILY Carvedilol 25 Mg Tablet 50 Mg PO BIDWMEALS Vitamin D2 (Ergocalciferol (Vitamin D2)) 50,000 Unit Capsule 50,000 Unit PO QSU Ferrous Sulfate 325 Mg Tablet 325 Mg PO BID Folic Acid 1 Mg Tablet 1 Mg PO DAILY Procardia Xl (Nifedipine) 60 Mg Tab.er.24 60 Mg PO DAILY Furosemide 80 Mg Tablet 80 Mg PO BID Vitals/I & O Vital Sign - Last 24 Hours 11/26/17 11/26/17 11/26/17 11/26/17 16:00 17:30 17:30 19:00 Temp 99.1 97.9 99.1 97.9 Pulse 88 88 82 Resp 18 18 B/P (MAP) 135/65 (88) 135/65 112/53 (72) Pulse Ox 92 92 92 O2 Delivery Nasal Cannula Room Air Nasal Cannula O2 Flow Rate 3.0 3.0 11/26/17 11/26/17 11/26/17 11/26/17 20:00 20:51 22:00 23:00 Temp 100.4 100.4 Pulse 85 Resp 18 B/P (MAP) 115/50 (71) Pulse Ox 92 92 90 O2 Delivery Room Air Nasal Cannula Nasal Cannula Room Air 11/27/17 11/27/17 11/27/17 11/27/17 03:00 07:00 07:30 09:35 Temp 99.3 97.9 97.9 99.3 97.9 97.9 Pulse 89 79 79 Resp 18 B/P (MAP) 121/50 (73) 104/49 (67) 108/57 Pulse Ox 91 95 O2 Delivery Room Air Room Air Nasal Cannula O2 Flow Rate 2.0 11/27/17 11/27/17 11/27/17 11/27/17 09:56 10:02 10:40 11:00 Temp 98.1 98.1 98.2 98.1 98.1 98.2 Pulse 76 74 78 Resp 18 18 B/P (MAP) 108/53 108/50 111/50 (70) Pulse Ox 95 95 O2 Delivery Nasal Cannula Room Air O2 Flow Rate 3.0 11/27/17 11/27/17 11/27/17 11/27/17 11:10 11:40 12:30 13:30 Temp 98.2 97.9 97.3 98.2 97.9 97.3 Pulse 78 74 74 Resp 17 18 19 18 B/P (MAP) 111/50 110/53 122/63 Pulse Ox 95 O2 Delivery Room Air Intake and Output 11/26/17 11/26/17 11/27/17 15:00 23:00 07:00 Intake Total 510 ml 360 ml Output Total 0 ml 0 ml Balance 510 ml 360 ml JUSTEN DIEZ MD Nov 27, 2017 13:59
[2017-11-27] MEDS: INSULIN LISPRO 300 UNITS/3 ML INSULN.PEN. SQ SCH (17:00)
[2017-11-27] MEDS: ATORVASTATIN CALCIUM 20 MG TABLET PO SCH (21:38)
[2017-11-28 03:50] VITALS: BP 117/50
[2017-11-28] MEDS: PIPERACILLIN/TAZOBACTAM 2.25 GM in IV NORMAL SALINE 50ML 50 ML IV SCH ×3 (06:17→20:51)
[2017-11-28 06:37] LABS: BASO # 0.1 x10^3/uL (0.0-0.2); BASO % 1 % (0-3); EOS # 0.1 x10^3/uL (0.0-0.7); EOS % 1 % (0-3); HEMATOCRIT 21.3 % (39.0-53.0); HEMOGLOBIN 7.3 g/dL (13.0-17.5); LYMPH # 0.4 x10^3/uL (1.0-4.8); LYMPH % 3 % (24-48); MEAN CORPUSCULAR HEMOGLOBIN 30 pg (25-35); MEAN CORPUSCULAR HGB CONC 35 g/dL (31-37); MEAN CORPUSCULAR VOLUME 86 fL (79-100); MONO # 1.3 x10^3/uL (0.0-1.1); MONO % 11 % (0-9); NEUT # 9.8 x10^3uL (1.8-7.7); NEUT % 84 % (31-73); PLATELET COUNT 365 x10^3/uL (140-400); RED BLOOD COUNT 2.46 x10^6/uL (4.30-5.70); RED CELL DISTRIBUTION WIDTH 16.4 % (11.5-14.5); WHITE BLOOD COUNT 11.6 x10^3/uL (4.0-11.0)
[2017-11-28 06:43] LABS: CREATININE 7.2 mg/dL (0.7-1.3); GFR 9.7; POTASSIUM 4.7 mmol/L (3.5-5.1)
[2017-11-28 07:00] VITALS: BP 128/56
[2017-11-28] MEDS: INSULIN LISPRO 300 UNITS/3 ML INSULN.PEN. SQ SCH ×3 (07:35→16:53)
[2017-11-28] MEDS: FOLIC ACID 1 MG TABLET. PO SCH (08:37)
[2017-11-28] MEDS: ASCORBIC ACID 500 MG TABLET PO SCH (08:37)
[2017-11-28] MEDS: predniSONE 20 MG TABLET PO SCH (08:37)
[2017-11-28] MEDS: LACTOBACILLUS RHAMNOSUS GG 1 CAPSULE. PO SCH ×2 (08:37→20:48)
[2017-11-28] MEDS: FUROSEMIDE 80 MG TABLET. PO SCH ×2 (08:37→16:43)
[2017-11-28] MEDS: FERROUS SULFATE 325 MG TABLET. PO SCH ×2 (08:37→20:48)
[2017-11-28] MEDS: CARVEDILOL 12.5 MG TABLET. PO SCH ×2 (08:38→16:43)
[2017-11-28] MEDS: CALCIUM ACETATE 667 MG CAPSULE PO SCH ×3 (08:38→16:42)
[2017-11-28] MEDS: HEPARIN PF for SUB-Q USE 5,000 UNIT/0.5 ML VIAL. SQ SCH ×2 (08:42→20:50)
[2017-11-28] MEDS: DICLOFENAC SODIUM 1% TOPICAL GEL 100GM TUBE. TP SCH ×2 (08:48→20:48)
--- NOTE | 2017-11-28 09:26 | PDOC ---
Infectious Disease Note Subjective: Subjective Comfortable, less right foot pain no diarrhea Denies N/V/cramps No fevers ROS: ROS Negative except for above. Vital Signs: Vital Signs Vital Signs Date Time Temp Pulse Resp B/P (MAP) Pulse Ox O2 Delivery O2 Flow Rate FiO2 11/28/17 08:38 80 128/56 11/28/17 07:00 97.7 18 93 Room Air 97.7 11/27/17 18:03 3.0 Physical Exam: PHYSICAL EXAM GENERAL: Alert, oriented gentleman, not in distress. HEENT: NAD. NECK: Supple, no JVP, no lymphadenopathy. LUNGS: Clear. HEART: S1 and S2 regular. ABDOMEN: Benign. EXTREMITIES: No edema or cyanosis. The patient does have a nicely healed TMA on the left side. Right big toe amputation is unremarkable. Second toe is a hammertoe where the distal part of the toe bends and touches the ground where he has an ulcer and there is a purulent drainage. The depth of the ulcer cannot be judged as it is a small ulcer, but simone pus is coming out. There is another ulcer on the plantar surface of the toe, which has healthy granulation tissue. Dorsalis pedis is palpable. NEUROLOGICAL: The patient is neurologically intact. Medications: Inpatient Meds: Current Medications Medications (Trade) Dose Ordered Sig/Solomon Start Time Stop Time Status Last Admin Dose Admin Acetaminophen (Tylenol) 650 mg PRN Q6HRS PRN 11/26/17 14:45 Albumin Human 200 ml @ 200 mls/hr 1X PRN PRN 11/24/17 11:00 11/24/17 16:59 DC Ascorbic Acid (Vitamin C) 500 mg DAILY 11/23/17 09:00 11/28/17 08:37 500 MG Atorvastatin Calcium (Lipitor) 20 mg QHS 11/23/17 21:00 11/27/17 21:38 20 MG Calcium Acetate (Phoslo) 1,334 mg TIDWMEALS 11/23/17 08:00 11/28/17 08:38 1,334 MG Carvedilol (Coreg) 50 mg BIDWMEALS 11/23/17 08:00 11/28/17 08:38 50 MG Clonidine HCl (Catapres) 0.1 mg 1X PRN PRN 11/24/17 11:00 8/23/18 18:00 DC Dextrose (Dextrose 50%-Water Syringe) 12.5 gm PRN Q15MIN PRN 11/27/17 12:30 Diclofenac Sodium (Voltaren) 1 rowan BID 11/26/17 10:45 11/28/17 08:48 1 ROWAN Diphenhydramine HCl (Benadryl) 25 mg 1X PRN PRN 11/24/17 11:00 11/24/17 18:00 DC Docusate Sodium (Colace) 100 mg PRN DAILY PRN 11/26/17 14:45 Ferrous Sulfate (Feosol) 325 mg BID 11/23/17 09:00 11/28/17 08:37 325 MG Folic Acid (Folic Acid) 1 mg DAILY 11/23/17 09:00 11/28/17 08:37 1 MG Furosemide (Lasix) 80 mg BID94 11/23/17 09:00 11/28/17 08:37 80 MG Heparin Sodium (Porcine) (Heparin Sq) 5,000 unit Q12HR 11/25/17 10:00 11/28/17 08:42 5,000 UNIT Info (PHARMACY MONITORING -- do not chart) 1 each PRN DAILY PRN 11/26/17 08:00 11/26/17 08:03 DC Insulin Human Lispro (HumaLOG) 0-9 UNITS TIDWMEALS 11/27/17 17:00 Labetalol HCl (Normodyne Iv Push) 10 mg PRN Q1HR PRN 11/24/17 11:00 11/24/17 18:00 DC Lactobacillus Rhamnosus (Culturelle) 1 cap BID 11/24/17 21:00 11/28/17 08:37 1 CAP Morphine Sulfate (Morphine Sulfate) 2 mg PRN Q2HR PRN 11/26/17 14:45 Nifedipine (Procardia Xl) 60 mg DAILY 11/23/17 09:00 11/28/17 08:37 60 MG Ondansetron HCl (Zofran) 4 mg PRN Q6HRS PRN 11/26/17 14:45 Oxycodone/ Acetaminophen (Percocet 5/325) 1 tab PRN Q4HRS PRN 11/25/17 03:30 11/26/17 20:51 1 TAB Piperacillin Sod/ Tazobactam Sod 2.25 gm/Sodium Chloride 50 ml @ 100 mls/hr Q8HRS 11/23/17 14:00 11/28/17 06:17 100 MLS/HR Prednisone (Prednisone) 20 mg DAILY 11/27/17 12:30 11/30/17 12:29 11/28/17 08:37 20 MG Sodium Chloride 1,000 ml @ 400 mls/hr Q2H30M PRN 11/26/17 07:56 11/26/17 19:55 DC Tramadol HCl (Ultram) 50 mg PRN Q6HRS PRN 11/26/17 14:45 11/27/17 23:52 50 MG Vancomycin HCl (Vanco Per Pharmacy) 1 each PRN DAILY PRN 11/23/17 13:15 11/27/17 12:45 1 EACH Vancomycin HCl (Vancomycin Random Level) 1 each 1X ONCE 11/24/17 06:00 11/24/17 06:01 DC 11/24/17 06:00 1 EACH Vancomycin HCl 500 mg/Sodium Chloride 100 ml @ 100 mls/hr QTUTHSA 11/26/17 16:00 11/26/17 16:00 100 MLS/HR Vancomycin HCl 2 gm/Sodium Chloride 500 ml @ 250 mls/hr 1X ONCE 11/23/17 15:00 11/23/17 16:59 DC 11/23/17 16:15 250 MLS/HR Labs: Lab Laboratory Tests Test 11/27/17 11:38 11/27/17 16:59 11/27/17 21:14 11/28/17 06:05 Glucose (Fingerstick) 156 mg/dL (70-99) 159 mg/dL (70-99) 220 mg/dL (70-99) White Blood Count 11.6 x10^3/uL (4.0-11.0) Red Blood Count 2.46 x10^6/uL (4.30-5.70) Hemoglobin 7.3 g/dL (13.0-17.5) Hematocrit 21.3 % (39.0-53.0) Mean Corpuscular Volume 86 fL (79-100) Mean Corpuscular Hemoglobin 30 pg (25-35) Mean Corpuscular Hemoglobin Concent 35 g/dL (31-37) Red Cell Distribution Width 16.4 % (11.5-14.5) Platelet Count 365 x10^3/uL (140-400) Neutrophils (%) (Auto) 84 % (31-73) Lymphocytes (%) (Auto) 3 % (24-48) Monocytes (%) (Auto) 11 % (0-9) Eosinophils (%) (Auto) 1 % (0-3) Basophils (%) (Auto) 1 % (0-3) Neutrophils # (Auto) 9.8 x10^3uL (1.8-7.7) Lymphocytes # (Auto) 0.4 x10^3/uL (1.0-4.8) Monocytes # (Auto) 1.3 x10^3/uL (0.0-1.1) Eosinophils # (Auto) 0.1 x10^3/uL (0.0-0.7) Basophils # (Auto) 0.1 x10^3/uL (0.0-0.2) Sodium Level 134 mmol/L (136-145) Potassium Level 4.7 mmol/L (3.5-5.1) Chloride Level 99 mmol/L (98-107) Carbon Dioxide Level 25 mmol/L (21-32) Anion Gap 10 (6-14) Blood Urea Nitrogen 62 mg/dL (8-26) Creatinine 7.2 mg/dL (0.7-1.3) Estimated GFR (Cockcroft-Gault) 9.7 Glucose Level 134 mg/dL (70-99) Calcium Level 8.0 mg/dL (8.5-10.1) Test 11/28/17 06:51 Glucose (Fingerstick) 130 mg/dL (70-99) Micro RUN DATE: 11/26/17 PAGE 1 RUN TIME: 1710 [facility] [address] [place] [address] Demarcus Galo M.D., [employer] PATIENT: LIVEHANNY L ACCT: [id number] LOC: [address] [place] [address] U : [id number] AGE/SX: 52/M ROOM: 418 REG : 11/22/[address]: IMANI KERNS : 1965 BED: 1 DIS : STATUS: ADM IN TLOC: SPEC #: [id number] JAN: 11/23/17 STATUS: RES REQ #: [id number] RECD: 11/23/[address]: YANIRA GOMEZ MD SOURCE: TOE ENTR: 11/23/[address] [facility] [address]: IMANI KERNS MD SPDC: RT SECOND DAJUAN DREW MD, ARCHANA MD NO PCP VANI, JOHN N MD ORDERED: ANAER/AEROB/GS Procedure Result ANAEROBIC-AEROBIC CULTURE Preliminary Preliminary report ANAEROBIC RES 1 Preliminary Comment No anaerobes recovered in 24 hours. AEROBIC CULT Final Final report AEROBIC RES 1 Final Staphylococcus aureus 4+ Based on susceptibility to oxacillin this isolate would be susceptible to: * Beta-lactam/beta-lactamase inhibitor combinations; such as: Amoxicillin-clavulanic acid Ampicillin-sulbactam * Antistaphylococcal cephems; such as: Cefaclor Cefuroxime * Antistaphylococcal carbapenems; such as: Imipenem Meropenem Most isolates of Staphylococcus sp. produce a beta- lactamase enzyme rendering them resistant to penicillin. Please contact the laboratory if penicillin is being considered for therapy. AEROBIC RES 2 Final Comment CONTINUED ON NEXT PAGE RUN DATE: 11/26/17 PAGE 2 RUN TIME: 6754 [facility] [address] [place] [address] Demarcus Galo M.D., [employer] SPEC: [id number] PATIENT: HANNY LIVE [id number] ( Continued) Procedure Result AEROBIC RES 2 Final (continued) Pseudomonas aeruginosa 1+ ANTIMICROBIAL SUSCEPTIBILITY Final Comment S = Susceptible; I = Intermediate; R = Resistant P = Positive; N = Negative MICS are expressed in micrograms per mL Antibiotic RSLT#1 RSLT#2 RSLT#3 RSLT#4 Amikacin S =4 Cefepime S =8 Ceftazidime S =4 Ciprofloxacin R>=8 S<=0.25 Clindamycin R>=8 Erythromycin R>=8 Gentamicin S<=0.5 S =4 Imipenem S<=1 Levofloxacin R>=8 S =1 Linezolid S =2 Meropenem S<=0.25 Moxifloxacin R =4 Oxacillin S =0.5 Piperacillin S =8 Quinupristin/Dalfopristin S =0.5 Rifampin S<=0.5 Tetracycline S<=1 Ticarcillin S =32 Tobramycin S<=1 Trimethoprim/Sulfa S<=10 Vancomycin S<=0.5 GRAM STAIN Final Final report GRAM STAIN RES 1 Final Comment No white blood cells seen. GRAM STAIN RES 2 Final Comment CONTINUED ON NEXT PAGE RUN DATE: 11/26/17 PAGE 3 RUN TIME: 1710 [facility] [address] [place] [address] Demarcus Galo M.D., [employer] SPEC: [id number] PATIENT: HANNY LIVE [id number] ( Continued) Procedure Result GRAM STAIN RES 2 Final (continued) Few gram positive cocci Performed at: DA - [facility] [address], [place], [place] [id number] Mental Health Technician: IRENA Jimenez MD, Phone: [phone] Objective: Assessment: Rt 2nd toe ulcer with infection C/S + PSAE,MSSA ESRD Anemia DM HTN Plan: Plan of Care Cont keflex and levaquin will be able to dc home soon depending on plans per ortho local care CORRY GOMEZ MD Nov 28, 2017 09:26
--- NOTE | 2017-11-28 10:27 | PDOC ---
Renal-Progress Notes Subjective Notes Notes NONE History of Present Illness Hx of present illness NO CHANGE Vitals Vitals Vital Signs Date Time Temp Pulse Resp B/P (MAP) Pulse Ox O2 Delivery O2 Flow Rate FiO2 11/28/17 08:38 80 128/56 11/28/17 08:00 Room Air 11/28/17 07:00 97.7 18 93 97.7 11/27/17 18:03 3.0 Weight Weight [ ] I.O. Intake and Output Intake and Output 11/28/17 07:00 Intake Total 1270 ml Output Total 0 ml Balance 1270 ml Intake Oral 460 ml IV Total 100 ml Blood Product IV Normal Saline Flush 710 ml Output Urine Total 0 ml # Voids 1 # Bowel Movements 1 Labs Labs Laboratory Tests Test 11/27/17 11:38 11/27/17 16:59 11/27/17 21:14 11/28/17 06:05 Glucose (Fingerstick) 156 mg/dL (70-99) 159 mg/dL (70-99) 220 mg/dL (70-99) White Blood Count 11.6 x10^3/uL (4.0-11.0) Red Blood Count 2.46 x10^6/uL (4.30-5.70) Hemoglobin 7.3 g/dL (13.0-17.5) Hematocrit 21.3 % (39.0-53.0) Mean Corpuscular Volume 86 fL (79-100) Mean Corpuscular Hemoglobin 30 pg (25-35) Mean Corpuscular Hemoglobin Concent 35 g/dL (31-37) Red Cell Distribution Width 16.4 % (11.5-14.5) Platelet Count 365 x10^3/uL (140-400) Neutrophils (%) (Auto) 84 % (31-73) Lymphocytes (%) (Auto) 3 % (24-48) Monocytes (%) (Auto) 11 % (0-9) Eosinophils (%) (Auto) 1 % (0-3) Basophils (%) (Auto) 1 % (0-3) Neutrophils # (Auto) 9.8 x10^3uL (1.8-7.7) Lymphocytes # (Auto) 0.4 x10^3/uL (1.0-4.8) Monocytes # (Auto) 1.3 x10^3/uL (0.0-1.1) Eosinophils # (Auto) 0.1 x10^3/uL (0.0-0.7) Basophils # (Auto) 0.1 x10^3/uL (0.0-0.2) Sodium Level 134 mmol/L (136-145) Potassium Level 4.7 mmol/L (3.5-5.1) Chloride Level 99 mmol/L (98-107) Carbon Dioxide Level 25 mmol/L (21-32) Anion Gap 10 (6-14) Blood Urea Nitrogen 62 mg/dL (8-26) Creatinine 7.2 mg/dL (0.7-1.3) Estimated GFR (Cockcroft-Gault) 9.7 Glucose Level 134 mg/dL (70-99) Calcium Level 8.0 mg/dL (8.5-10.1) Test 11/28/17 06:51 Glucose (Fingerstick) 130 mg/dL (70-99) Micro Micro Microbiology 11/22/17 Blood Culture - Final, Complete NO GROWTH AFTER 5 DAYS 11/23/17 Anaerobic/Aerobic Culture - Preliminary, Resulted 11/23/17 Anaerobic Culture Result 1 (SEN) - Preliminary, Resulted 11/23/17 Aerobic Culture - Final, Resulted 11/23/17 Aerobic Culture Result 1 (SEN) - Final, Resulted 11/23/17 Aerobic Culture Result 2 (SEN) - Final, Resulted 11/23/17 Antimicrobic Susceptibility - Final, Resulted 11/23/17 Gram Stain - Final, Resulted 11/23/17 Gram Stain Result 1 (SEN) - Final, Resulted 11/23/17 Gram Stain Result 2 (SEN) - Final, Resulted Review of Systems Constitutional: yes: alert, oriented Ears/Nose/Throat: Yes: no symptom reported Eyes: Yes: no symptom reported Pulmonary: Yes no symptom reported Cardiovascular: Yes no symptom reported Gastrointestional: Yes: no symptom reported Genitourinary: Yes: no symptom reported Musculoskeletal: Yes: foot pain Skin: Yes no symptom reported Psychiatric/Neurological: Yes: no symptom reported Endocrine: Yes: no symptom reported Physical Exam General Appearance: no apparent distress Skin: warm Respiratory: bilateral CTA Heart: S1S2 Abdomen: soft, bowel sounds present Genitourinary: bladder flat Extremities: pulses present Neurology: alert, oriented Assessment Assessment IMP ESRD DM II HTN ANEMIA TOE WOUND PLAN ANTIBIOTICS HD TOMORROW MARY BETH MONK MD Nov 28, 2017 10:27
[2017-11-28 11:00] VITALS: BP 148/84
--- NOTE | 2017-11-28 11:57 | PDOC ---
Provider Note Provider Note Patient stayed in house over weekend due to need for further transfusion. I will plan right 2nd toe flexor tenotomy and ulcer debridement tomorrow, after his dialysis. Early am dialysis tomorrow please. KWASI VANN MD Nov 28, 2017 11:57
--- NOTE | 2017-11-28 13:15 | PDOC ---
PROGRESS NOTES Chief Complaint Chief Complaint anemia symptomatic anemia, ESRD s/p 3 u PRBC small toe wound with hammartoe and ulcer, may have difficulty healing ESRD on HD Dm2, now off meds, diet controlled, has lost 40 lbs intentionally htn, chronic mild chronic diastolic CHF stable weakness and debility, acquired obesity, BMI 32 left toes and rt big toe s/p amputation gout plan: fu with id, talked to ID, wound cx + pseudomonas and staph areus MSSA cont vanco and zosyn , change to kefelx and levaquin as per ID still on IV for now. I and D tmr with dr. Krista francois home meds cont HD wound care gout, add prednisone x3ds, on NSAIDS cream History of Present Illness History of Present Illness ROS: no fever, chills,sob or chest pain HB<7 11/27 got 1u PRBC right wrist left knee gout pain, better today pt wants go home if no i and d now pt has insurance, but only HD weekly , said too many things personal, willing to try more Vitals Vitals Vital Signs Date Time Temp Pulse Resp B/P (MAP) Pulse Ox O2 Delivery O2 Flow Rate FiO2 11/28/17 11:00 97.5 75 18 148/84 (105) 100 Room Air 97.5 11/27/17 18:03 3.0 Physical Exam Physical Exam GENERAL: Alert, oriented gentleman, not in distress. HEENT: NAD. NECK: Supple, no JVP, no lymphadenopathy. LUNGS: Clear. HEART: S1 and S2 regular. ABDOMEN: Benign. EXTREMITIES: No edema or cyanosis. The patient does have a nicely healed TMA on the left side. Right big toe amputation is unremarkable. Second toe is a hammertoe where the distal part of the toe bends and touches the ground where he has an ulcer and there is a purulent drainage. The depth of the ulcer cannot be judged as it is a small ulcer, but simone pus is coming out. There is another ulcer on the plantar surface of the toe, which has healthy granulation tissue. Dorsalis pedis is palpable. NEUROLOGICAL: The patient is neurologically intact. General: Alert, Oriented X3, Cooperative, No acute distress Heart: Regular rate Lungs: Clear, Wheezing Abdomen: Soft Extremities: Normal pulses Skin: No rashes, Other (left foot TMA and right great toe amputation incisions are well-healed. There is a 1cm x 1cm wound on the tip of the right second toe. There is no active drainage at this time and no foul smell. There is a smaller wound distal to this with healthy, pink granulation tissue. There is no tenderness to palpation of the foot or toe. No erythema or warmth. Dorsalis pedis and posterior tibialis pulses are palpable, bilaterally. Diminished sensation due to chronic peripheral neuropathy. ) Labs LABS Laboratory Tests Test 11/27/17 16:59 11/27/17 21:14 11/28/17 06:05 11/28/17 06:51 Glucose (Fingerstick) 159 mg/dL (70-99) 220 mg/dL (70-99) 130 mg/dL (70-99) White Blood Count 11.6 x10^3/uL (4.0-11.0) Red Blood Count 2.46 x10^6/uL (4.30-5.70) Hemoglobin 7.3 g/dL (13.0-17.5) Hematocrit 21.3 % (39.0-53.0) Mean Corpuscular Volume 86 fL (79-100) Mean Corpuscular Hemoglobin 30 pg (25-35) Mean Corpuscular Hemoglobin Concent 35 g/dL (31-37) Red Cell Distribution Width 16.4 % (11.5-14.5) Platelet Count 365 x10^3/uL (140-400) Neutrophils (%) (Auto) 84 % (31-73) Lymphocytes (%) (Auto) 3 % (24-48) Monocytes (%) (Auto) 11 % (0-9) Eosinophils (%) (Auto) 1 % (0-3) Basophils (%) (Auto) 1 % (0-3) Neutrophils # (Auto) 9.8 x10^3uL (1.8-7.7) Lymphocytes # (Auto) 0.4 x10^3/uL (1.0-4.8) Monocytes # (Auto) 1.3 x10^3/uL (0.0-1.1) Eosinophils # (Auto) 0.1 x10^3/uL (0.0-0.7) Basophils # (Auto) 0.1 x10^3/uL (0.0-0.2) Sodium Level 134 mmol/L (136-145) Potassium Level 4.7 mmol/L (3.5-5.1) Chloride Level 99 mmol/L (98-107) Carbon Dioxide Level 25 mmol/L (21-32) Anion Gap 10 (6-14) Blood Urea Nitrogen 62 mg/dL (8-26) Creatinine 7.2 mg/dL (0.7-1.3) Estimated GFR (Cockcroft-Gault) 9.7 Glucose Level 134 mg/dL (70-99) Calcium Level 8.0 mg/dL (8.5-10.1) Test 11/28/17 11:31 Glucose (Fingerstick) 170 mg/dL (70-99) Assessment and Plan Assessmemt and Plan Problems Medical Problems: (1) Toe infection Status: Acute Comment Review of Relevant I have reviewed the following items donna (where applicable) has been applied. Labs Laboratory Tests Test 11/26/17 17:54 11/27/17 04:25 11/27/17 11:38 11/27/17 16:59 Glucose (Fingerstick) 117 mg/dL (70-99) 156 mg/dL (70-99) 159 mg/dL (70-99) White Blood Count 12.2 x10^3/uL (4.0-11.0) Red Blood Count 2.09 x10^6/uL (4.30-5.70) Hemoglobin 6.4 g/dL (13.0-17.5) Hematocrit 18.1 % (39.0-53.0) Mean Corpuscular Volume 87 fL (79-100) Mean Corpuscular Hemoglobin 31 pg (25-35) Mean Corpuscular Hemoglobin Concent 35 g/dL (31-37) Red Cell Distribution Width 31.1 % (11.5-14.5) Platelet Count 305 x10^3/uL (140-400) Neutrophils (%) (Auto) 73 % (31-73) Lymphocytes (%) (Auto) 8 % (24-48) Monocytes (%) (Auto) 14 % (0-9) Eosinophils (%) (Auto) 4 % (0-3) Basophils (%) (Auto) 1 % (0-3) Neutrophils # (Auto) 8.9 x10^3uL (1.8-7.7) Lymphocytes # (Auto) 1.0 x10^3/uL (1.0-4.8) Monocytes # (Auto) 1.7 x10^3/uL (0.0-1.1) Eosinophils # (Auto) 0.5 x10^3/uL (0.0-0.7) Basophils # (Auto) 0.1 x10^3/uL (0.0-0.2) Sodium Level 136 mmol/L (136-145) Potassium Level 4.2 mmol/L (3.5-5.1) Chloride Level 101 mmol/L (98-107) Carbon Dioxide Level 29 mmol/L (21-32) Anion Gap 6 (6-14) Blood Urea Nitrogen 38 mg/dL (8-26) Creatinine 5.0 mg/dL (0.7-1.3) Estimated GFR (Cockcroft-Gault) 14.8 Glucose Level 125 mg/dL (70-99) Calcium Level 7.9 mg/dL (8.5-10.1) Test 11/27/17 21:14 11/28/17 06:05 11/28/17 06:51 11/28/17 11:31 Glucose (Fingerstick) 220 mg/dL (70-99) 130 mg/dL (70-99) 170 mg/dL (70-99) White Blood Count 11.6 x10^3/uL (4.0-11.0) Red Blood Count 2.46 x10^6/uL (4.30-5.70) Hemoglobin 7.3 g/dL (13.0-17.5) Hematocrit 21.3 % (39.0-53.0) Mean Corpuscular Volume 86 fL (79-100) Mean Corpuscular Hemoglobin 30 pg (25-35) Mean Corpuscular Hemoglobin Concent 35 g/dL (31-37) Red Cell Distribution Width 16.4 % (11.5-14.5) Platelet Count 365 x10^3/uL (140-400) Neutrophils (%) (Auto) 84 % (31-73) Lymphocytes (%) (Auto) 3 % (24-48) Monocytes (%) (Auto) 11 % (0-9) Eosinophils (%) (Auto) 1 % (0-3) Basophils (%) (Auto) 1 % (0-3) Neutrophils # (Auto) 9.8 x10^3uL (1.8-7.7) Lymphocytes # (Auto) 0.4 x10^3/uL (1.0-4.8) Monocytes # (Auto) 1.3 x10^3/uL (0.0-1.1) Eosinophils # (Auto) 0.1 x10^3/uL (0.0-0.7) Basophils # (Auto) 0.1 x10^3/uL (0.0-0.2) Sodium Level 134 mmol/L (136-145) Potassium Level 4.7 mmol/L (3.5-5.1) Chloride Level 99 mmol/L (98-107) Carbon Dioxide Level 25 mmol/L (21-32) Anion Gap 10 (6-14) Blood Urea Nitrogen 62 mg/dL (8-26) Creatinine 7.2 mg/dL (0.7-1.3) Estimated GFR (Cockcroft-Gault) 9.7 Glucose Level 134 mg/dL (70-99) Calcium Level 8.0 mg/dL (8.5-10.1) Laboratory Tests Test 11/27/17 16:59 11/27/17 21:14 11/28/17 06:05 11/28/17 06:51 Glucose (Fingerstick) 159 mg/dL (70-99) 220 mg/dL (70-99) 130 mg/dL (70-99) White Blood Count 11.6 x10^3/uL (4.0-11.0) Red Blood Count 2.46 x10^6/uL (4.30-5.70) Hemoglobin 7.3 g/dL (13.0-17.5) Hematocrit 21.3 % (39.0-53.0) Mean Corpuscular Volume 86 fL (79-100) Mean Corpuscular Hemoglobin 30 pg (25-35) Mean Corpuscular Hemoglobin Concent 35 g/dL (31-37) Red Cell Distribution Width 16.4 % (11.5-14.5) Platelet Count 365 x10^3/uL (140-400) Neutrophils (%) (Auto) 84 % (31-73) Lymphocytes (%) (Auto) 3 % (24-48) Monocytes (%) (Auto) 11 % (0-9) Eosinophils (%) (Auto) 1 % (0-3) Basophils (%) (Auto) 1 % (0-3) Neutrophils # (Auto) 9.8 x10^3uL (1.8-7.7) Lymphocytes # (Auto) 0.4 x10^3/uL (1.0-4.8) Monocytes # (Auto) 1.3 x10^3/uL (0.0-1.1) Eosinophils # (Auto) 0.1 x10^3/uL (0.0-0.7) Basophils # (Auto) 0.1 x10^3/uL (0.0-0.2) Sodium Level 134 mmol/L (136-145) Potassium Level 4.7 mmol/L (3.5-5.1) Chloride Level 99 mmol/L (98-107) Carbon Dioxide Level 25 mmol/L (21-32) Anion Gap 10 (6-14) Blood Urea Nitrogen 62 mg/dL (8-26) Creatinine 7.2 mg/dL (0.7-1.3) Estimated GFR (Cockcroft-Gault) 9.7 Glucose Level 134 mg/dL (70-99) Calcium Level 8.0 mg/dL (8.5-10.1) Test 11/28/17 11:31 Glucose (Fingerstick) 170 mg/dL (70-99) Microbiology 11/22/17 Blood Culture - Final, Complete NO GROWTH AFTER 5 DAYS 11/23/17 Anaerobic/Aerobic Culture - Preliminary, Resulted 11/23/17 Anaerobic Culture Result 1 (SEN) - Preliminary, Resulted 11/23/17 Aerobic Culture - Final, Resulted 11/23/17 Aerobic Culture Result 1 (SEN) - Final, Resulted 11/23/17 Aerobic Culture Result 2 (SEN) - Final, Resulted 11/23/17 Antimicrobic Susceptibility - Final, Resulted 11/23/17 Gram Stain - Final, Resulted 11/23/17 Gram Stain Result 1 (SEN) - Final, Resulted 11/23/17 Gram Stain Result 2 (SEN) - Final, Resulted Medications Current Medications Ondansetron HCl (Zofran) 4 mg PRN Q8HRS PRN IV NAUSEA/VOMITING 1ST CHOICE; Start 11/23/17 at 00:30; Stop 11/24/17 at 00:29; Status DC Morphine Sulfate (Morphine Sulfate) 4 mg PRN Q2HR PRN IV SEVERE PAIN; Start at 00:30; Stop 11/24/17 at 00:29; Status DC Ascorbic Acid (Vitamin C) 500 mg DAILY PO Last administered on 11/28/17 08:37 ; Start 11/23/17 at 09:00 Atorvastatin Calcium (Lipitor) 20 mg QHS PO Last administered on 11/27/17 21: 38; Start 11/23/17 at 21:00 Ferrous Sulfate (Feosol) 325 mg BID PO Last administered on 11/28/17 08:37; Start 11/23/17 at 09:00 Folic Acid (Folic Acid) 1 mg DAILY PO Last administered on 11/28/17 08:37; Start 11/23/17 at 09:00 Furosemide (Lasix) 80 mg BID94 PO Last administered on 11/28/17 08:37; Start 11/23/17 at 09:00 Carvedilol (Coreg) 50 mg BIDWMEALS PO Last administered on 11/28/17 08:38; Start 11/23/17 at 08:00 Nifedipine (Procardia Xl) 60 mg DAILY PO Last administered on 11/28/17 08:37; Start 11/23/17 at 09:00 Calcium Acetate (Phoslo) 1,334 mg TIDWMEALS PO Last administered on 11/28/17 12:08; Start 11/23/17 at 08:00 Vancomycin HCl (Vanco Per Pharmacy) 1 each PRN DAILY PRN MC SEE COMMENTS Last administered on 11/27/17at 12:45; Start 11/23/17 at 13:15 Piperacillin Sod/ Tazobactam Sod 2.25 gm/Sodium Chloride 50 ml @ 100 mls/hr Q8HRS IV Last administered on 11/28/17 06:17; Start 11/23/17 at 14:00 Vancomycin HCl 2 gm/Sodium Chloride 500 ml @ 250 mls/hr 1X ONCE IV Last administered on 11/23/17at 16:15; Start 11/23/17 at 15:00; Stop 11/23/17 at 16:59 ; Status DC Vancomycin HCl (Vancomycin Random Level) 1 each 1X ONCE MC Last administered on 11/24/17at 06:00; Start 11/24/17 at 06:00; Stop 11/24/17 at 06:01; Status DC Sodium Chloride 1,000 ml @ 1,000 mls/hr Q1H PRN IV hypotension; Start 11/24/17 at 11:00; Stop 11/24/17 at 18:00; Status DC Albumin Human 200 ml @ 200 mls/hr 1X PRN PRN IV Hypotension; Start 11/24/17 at 11:00; Stop 11/24/17 at 16:59; Status DC Acetaminophen (Tylenol) 500 mg 1X PRN PRN PO MILD PAIN / TEMP; Start 11/24/17 at 11:00; Stop 11/24/17 at 18:00; Status DC Diphenhydramine HCl (Benadryl) 25 mg 1X PRN PRN IV ITCHING; Start 11/24/17 at 11:00; Stop 11/24/17 at 18:00; Status DC Diphenhydramine HCl (Benadryl) 25 mg 1X PRN PRN IV ITCHING; Start 11/24/17 at 11:00; Stop 11/24/17 at 18:00; Status DC Labetalol HCl (Normodyne Iv Push) 10 mg PRN Q1HR PRN IVP SBP > 180; Start 11/24 at 11:00; Stop 11/24/17 at 18:00; Status DC Clonidine HCl (Catapres) 0.1 mg 1X PRN PRN PO SBP > 180; Start 11/24/17 at 11: 00; Stop 11/24/17 at 18:00; Status DC Sodium Chloride 1,000 ml @ 400 mls/hr Q2H30M PRN IV PATENCY; Start 11/24/17 at 11:00; Stop 11/24/17 at 18:00; Status DC Info (PHARMACY MONITORING -- do not chart) 1 each PRN DAILY PRN MC SEE COMMENTS ; Start 11/24/17 at 11:00 Vancomycin HCl 500 mg/Sodium Chloride 100 ml @ 100 mls/hr [id number] IV Last administered on 11/24/17at 17:06; Start 11/24/17 at 16:00; Stop 11/26/17 at 13:15 ; Status DC Lactobacillus Rhamnosus (Culturelle) 1 cap BID PO Last administered on at 08:37; Start 11/24/17 at 21:00 Oxycodone/ Acetaminophen (Percocet 5/325) 1 tab PRN Q4HRS PRN PO SEVERE PAIN Last administered on 11/26/17at 20:51; Start 11/25/17 at 03:30 Heparin Sodium (Porcine) (Heparin Sq) 5,000 unit Q12HR SQ Last administered on 11/28/17at 08:42; Start 11/25/17 at 10:00 Sodium Chloride 1,000 ml @ 1,000 mls/hr Q1H PRN IV hypotension; Start 11/26/17 at 07:56; Stop 11/26/17 at 13:55; Status DC Sodium Chloride 1,000 ml @ 400 mls/hr Q2H30M PRN IV PATENCY; Start 11/26/17 at 07:56; Stop 11/26/17 at 19:55; Status DC Info (PHARMACY MONITORING -- do not chart) 1 each PRN DAILY PRN MC SEE COMMENTS ; Start 11/26/17 at 08:00; Stop 11/26/17 at 08:03; Status DC Info (PHARMACY MONITORING -- do not chart) 1 each PRN DAILY PRN MC SEE COMMENTS ; Start 11/26/17 at 08:00; Stop 11/26/17 at 08:03; Status DC Diclofenac Sodium (Voltaren) 1 rowan BID TP Last administered on 11/28/17at 08:48 ; Start 11/26/17 at 10:45 Vancomycin HCl 500 mg/Sodium Chloride 100 ml @ 100 mls/hr QTUTHSA IV Last administered on 11/26/17at 16:00; Start 11/26/17 at 16:00 Acetaminophen (Tylenol) 650 mg PRN Q6HRS PRN PO FEVER; Start 11/26/17 at 14:45 Ondansetron HCl (Zofran) 4 mg PRN Q6HRS PRN IV NAUSEA/VOMITING; Start 11/26/17 at 14:45 Morphine Sulfate (Morphine Sulfate) 2 mg PRN Q2HR PRN IV MODERATE TO SEVERE PAIN; Start 11/26/17 at 14:45 Tramadol HCl (Ultram) 50 mg PRN Q6HRS PRN PO MILD TO MODERATE PAIN Last administered on 11/27/17at 23:52; Start 11/26/17 at 14:45 Docusate Sodium (Colace) 100 mg PRN DAILY PRN PO CONSTIPATION; Start 11/26/17 at 14:45 Insulin Human Lispro (HumaLOG) 0-9 UNITS TIDWMEALS SQ Last administered on 11/28at 12:11; Start 11/27/17 at 17:00 Dextrose (Dextrose 50%-Water Syringe) 12.5 gm PRN Q15MIN PRN IV SEE COMMENTS; Start 11/27/17 at 12:30 Prednisone (Prednisone) 20 mg DAILY PO Last administered on 11/28/17at 08:37; Start 11/27/17 at 12:30; Stop 11/30/17 at 12:29 Darbepoetin Ken (Aranesp) 60 mcg WEEKLYHS SQ ; Start 11/28/17 at 21:00 Active Scripts Active [Calcium Acetate] 667 MG Capsule 1,334 Mg PO TIDWMEALS 30 Days Reported Ascorbic Acid 500 Mg Tablet 500 Mg PO Catapres-Tts 1 (Clonidine) 1 Each Patch.tdwk 1 Each TD QTU Lipitor (Atorvastatin Calcium) 20 Mg Tablet 20 Mg PO DAILY Carvedilol 25 Mg Tablet 50 Mg PO BIDWMEALS Vitamin D2 (Ergocalciferol (Vitamin D2)) 50,000 Unit Capsule 50,000 Unit PO QSU Ferrous Sulfate 325 Mg Tablet 325 Mg PO BID Folic Acid 1 Mg Tablet 1 Mg PO DAILY Procardia Xl (Nifedipine) 60 Mg Tab.er.24 60 Mg PO DAILY Furosemide 80 Mg Tablet 80 Mg PO BID Vitals/I & O Vital Sign - Last 24 Hours 11/27/17 11/27/17 11/27/17 11/27/17 13:30 15:12 16:52 16:53 Temp 97.3 97.3 97.3 97.3 Pulse 74 74 74 Resp 18 18 18 B/P (MAP) 122/63 122/63 (82) 122/63 Pulse Ox 100 100 O2 Delivery Nasal Cannula Nasal Cannula O2 Flow Rate 3.0 3.0 11/27/17 11/27/17 11/27/17 11/27/17 18:00 18:03 20:00 20:45 Temp 98.2 98.2 Pulse 73 Resp 18 18 B/P (MAP) 124/67 (86) Pulse Ox 100 94 O2 Delivery Nasal Cannula Room Air Room Air O2 Flow Rate 3.0 3.0 11/27/17 11/27/17 11/28/17 11/28/17 23:00 23:52 00:52 03:50 Temp 98.2 98.7 98.2 98.7 Pulse 73 74 Resp 18 16 16 18 B/P (MAP) 113/53 (73) 117/50 (72) Pulse Ox 92 97 93 93 O2 Delivery Room Air Room Air Room Air Room Air 11/28/17 11/28/17 11/28/17 11/28/17 07:00 08:00 08:37 08:38 Temp 97.7 97.7 Pulse 80 80 80 Resp 18 B/P (MAP) 128/56 (80) 128/56 128/56 Pulse Ox 93 O2 Delivery Room Air Room Air 11/28/17 11:00 Temp 97.5 97.5 Pulse 75 Resp 18 B/P (MAP) 148/84 (105) Pulse Ox 100 O2 Delivery Room Air Intake and Output 11/27/17 11/27/17 11/28/17 15:00 23:00 07:00 Intake Total 710 ml 50 ml 510 ml Output Total 0 ml Balance 710 ml 50 ml 510 ml JUSTEN DIEZ MD Nov 28, 2017 13:15
[2017-11-28 15:00] VITALS: BP 131/70
[2017-11-28] MEDS: VANCOMYCIN PER PHARMACY MC PRN (15:13)
[2017-11-28 19:00] VITALS: BP 132/72
[2017-11-28] MEDS: ATORVASTATIN CALCIUM 20 MG TABLET PO SCH (20:48)
[2017-11-28] MEDS ORDERED: DARBEPOETIN ALFA 60 MCG/0.3 ML DISP.SYRIN. SQ SCH (21:00)
[2017-11-28 23:00] VITALS: BP 121/64
[2017-11-29] VITALS (12 sets, daily range): BP systolic 123–150; BP diastolic 62–80
[2017-11-29] MEDS: PIPERACILLIN/TAZOBACTAM 2.25 GM in IV NORMAL SALINE 50ML 50 ML IV SCH ×3 (05:54→21:58)
[2017-11-29 06:49] LABS: BASO % 0 % (0-3); EOS # 0.1 x10^3/uL (0.0-0.7); EOS % 1 % (0-3); LYMPH # 0.5 x10^3/uL (1.0-4.8); LYMPH % 5 % (24-48); MEAN CORPUSCULAR HEMOGLOBIN 31 pg (25-35); MEAN CORPUSCULAR HGB CONC 35 g/dL (31-37); MEAN CORPUSCULAR VOLUME 88 fL (79-100); MONO # 1.1 x10^3/uL (0.0-1.1); MONO % 10 % (0-9); NEUT # 8.8 x10^3uL (1.8-7.7); NEUT % 83 % (31-73); PLATELET COUNT 358 x10^3/uL (140-400); WHITE BLOOD COUNT 10.6 x10^3/uL (4.0-11.0)
[2017-11-29 06:57] LABS: CALCIUM 7.4 mg/dL (8.5-10.1); CREATININE 8.5 mg/dL (0.7-1.3); POTASSIUM 4.5 mmol/L (3.5-5.1)
[2017-11-29 07:00] LABS: HEMATOCRIT 20.2 % (39.0-53.0)
[2017-11-29] MEDS ORDERED: PROCHLORPERAZINE 10 MG/2 ML VIAL. IV PRN (07:00)
[2017-11-29] MEDS ORDERED: HYDROmorphone 2 MG/ML VIAL IV PRN (07:00)
[2017-11-29] MEDS ORDERED: MORPHINE SULFATE 2 MG/ML VIAL. IV PRN (07:00)
[2017-11-29] MEDS ORDERED: LIDOCAINE 1% PF 2 ML VIAL. ID PRN (07:00)
[2017-11-29] MEDS ORDERED: IV RINGERS,LACTATED 1000ML 1,000 ML IV SCH (07:00)
[2017-11-29] MEDS ORDERED: fentaNYL PF VIAL 100 MCG/2 ML VIAL IV PRN ×2 (07:00)
[2017-11-29] MEDS ORDERED: ONDANSETRON PF 4 MG/2 ML VIAL. IV PRN ×2 (07:00→15:30)
[2017-11-29] MEDS ORDERED: IV NORMAL SALINE 1000ML BAG 1,000 ML IV PRN ×2 (07:20)
[2017-11-29] MEDS ORDERED: LABETALOL 20 MG/4 ML DISP.SYRIN. IVP PRN (07:30)
[2017-11-29] MEDS ORDERED: DIALYSIS PATIENT. MC PRN ×2 (07:30)
[2017-11-29] MEDS: CALCIUM ACETATE 667 MG CAPSULE PO SCH ×3 (08:00→17:03)
[2017-11-29] MEDS: INSULIN LISPRO 300 UNITS/3 ML INSULN.PEN. SQ SCH ×3 (08:00→16:42)
[2017-11-29] MEDS: CARVEDILOL 12.5 MG TABLET. PO SCH ×2 (08:00→17:04)
[2017-11-29] MEDS: HEPARIN PF for SUB-Q USE 5,000 UNIT/0.5 ML VIAL. SQ SCH ×2 (09:00→21:53)
[2017-11-29] MEDS: ASCORBIC ACID 500 MG TABLET PO SCH (09:00)
[2017-11-29] MEDS: DICLOFENAC SODIUM 1% TOPICAL GEL 100GM TUBE. TP SCH ×2 (09:00→21:45)
[2017-11-29] MEDS: LACTOBACILLUS RHAMNOSUS GG 1 CAPSULE. PO SCH ×2 (09:00→21:45)
[2017-11-29] MEDS: FOLIC ACID 1 MG TABLET. PO SCH (09:00)
[2017-11-29] MEDS: FERROUS SULFATE 325 MG TABLET. PO SCH ×2 (09:00→21:45)
[2017-11-29] MEDS: predniSONE 20 MG TABLET PO SCH (09:00)
[2017-11-29] MEDS: FUROSEMIDE 80 MG TABLET. PO SCH ×2 (09:00→17:04)
--- NOTE | 2017-11-29 09:48 | PDOC ---
Infectious Disease Note Subjective: Subjective awaiting I and D today no diarrhea Denies N/V/cramps No fevers ROS: ROS Negative except for above. Vital Signs: Vital Signs Vital Signs Date Time Temp Pulse Resp B/P (MAP) Pulse Ox O2 Delivery O2 Flow Rate FiO2 11/29/17 07:00 97.7 73 18 132/65 (87) 99 Nasal Cannula 3.0 97.7 Physical Exam: PHYSICAL EXAM GENERAL: Alert, oriented gentleman, not in distress. HEENT: NAD. NECK: Supple, no JVP, no lymphadenopathy. LUNGS: Clear. HEART: S1 and S2 regular. ABDOMEN: Benign. EXTREMITIES: No edema or cyanosis. The patient does have a nicely healed TMA on the left side. Right big toe amputation is unremarkable. Second toe is a hammertoe where the distal part of the toe bends and touches the ground where he has an ulcer and there is a purulent drainage. The depth of the ulcer cannot be judged as it is a small ulcer, but simone pus is coming out. There is another ulcer on the plantar surface of the toe, which has healthy granulation tissue. Dorsalis pedis is palpable. NEUROLOGICAL: The patient is neurologically intact. Medications: Inpatient Meds: Current Medications Medications (Trade) Dose Ordered Sig/Solomon Start Time Stop Time Status Last Admin Dose Admin Acetaminophen (Tylenol) 650 mg PRN Q6HRS PRN 11/26/17 14:45 Albumin Human 200 ml @ 200 mls/hr 1X PRN PRN 11/24/17 11:00 11/24/17 16:59 DC Ascorbic Acid (Vitamin C) 500 mg DAILY 11/23/17 09:00 11/28/17 08:37 500 MG Atorvastatin Calcium (Lipitor) 20 mg QHS 11/23/17 21:00 11/28/17 20:48 20 MG Calcium Acetate (Phoslo) 1,334 mg TIDWMEALS 11/23/17 08:00 11/28/17 16:42 1,334 MG Carvedilol (Coreg) 50 mg BIDWMEALS 11/23/17 08:00 11/28/17 16:43 50 MG Clonidine HCl (Catapres) 0.1 mg 1X PRN PRN 11/24/17 11:00 11/24/17 18:00 DC Darbepoetin Ken (Aranesp) 60 mcg WEEKLYHS 11/28/17 21:00 11/28/17 20:51 60 MCG Dextrose (Dextrose 50%-Water Syringe) 12.5 gm PRN Q15MIN PRN 11/27/17 12:30 Diclofenac Sodium (Voltaren) 1 rowan BID 11/26/17 10:45 11/28/17 20:48 1 ROWAN Diphenhydramine HCl (Benadryl) 25 mg 1X PRN PRN 11/24/17 11:00 11/24/17 18:00 DC Docusate Sodium (Colace) 100 mg PRN DAILY PRN 11/26/17 14:45 Fentanyl Citrate (Fentanyl 2ml Vial) 50 mcg PRN Q5MIN PRN 11/29/17 07:00 11/30/17 06:59 Ferrous Sulfate (Feosol) 325 mg BID 11/23/17 09:00 11/28/17 20:48 325 MG Folic Acid (Folic Acid) 1 mg DAILY 11/23/17 09:00 11/28/17 08:37 1 MG Furosemide (Lasix) 80 mg BID94 11/23/17 09:00 11/28/17 16:43 80 MG Heparin Sodium (Porcine) (Heparin Sq) 5,000 unit Q12HR 11/25/17 10:00 11/28/17 20:50 5,000 UNIT Hydromorphone HCl (Dilaudid) 0.5 mg PRN Q10MIN PRN 11/29/17 07:00 11/30/17 06:59 Info (PHARMACY MONITORING -- do not chart) 1 each PRN DAILY PRN 11/29/17 07:30 UNV Insulin Human Lispro (HumaLOG) 0-9 UNITS TIDWMEALS 11/27/17 17:00 11/28/17 16:53 4 UNITS Labetalol HCl (Normodyne Iv Push) 10 mg PRN Q1HR PRN 11/29/17 07:30 11/30/17 07:29 Lactobacillus Rhamnosus (Culturelle) 1 cap BID 11/24/17 21:00 11/28/17 20:48 1 CAP Lidocaine HCl (Xylocaine-Mpf 1% 2ml Vial) 2 ml PRN 1X PRN 11/29/17 07:00 11/30/17 06:59 Morphine Sulfate (Morphine Sulfate) 1 mg PRN Q10MIN PRN 11/29/17 07:00 11/30/17 06:59 Nifedipine (Procardia Xl) 60 mg DAILY 11/23/17 09:00 11/28/17 08:37 60 MG Ondansetron HCl (Zofran) 4 mg PRN Q6HRS PRN 11/29/17 07:00 11/30/17 06:59 Oxycodone/ Acetaminophen (Percocet 5/325) 1 tab PRN Q4HRS PRN 11/25/17 03:30 11/26/17 20:51 1 TAB Piperacillin Sod/ Tazobactam Sod 2.25 gm/Sodium Chloride 50 ml @ 100 mls/hr Q8HRS 11/23/17 14:00 11/29/17 05:54 100 MLS/HR Prednisone (Prednisone) 20 mg DAILY 11/27/17 12:30 11/30/17 12:29 11/28/17 08:37 20 MG Prochlorperazine Edisylate (Compazine) 5 mg PACU PRN PRN 11/29/17 07:00 11/30/17 06:59 Ringer's Solution 1,000 ml @ 30 mls/hr Q24H 11/29/17 07:00 11/29/17 18:59 Sodium Chloride 1,000 ml @ 400 mls/hr Q2H30M PRN 11/29/17 07:20 11/29/17 19:19 Tramadol HCl (Ultram) 50 mg PRN Q6HRS PRN 11/26/17 14:45 11/27/17 23:52 50 MG Vancomycin HCl (Vanco Per Pharmacy) 1 each PRN DAILY PRN 11/23/17 13:15 11/28/17 15:13 1 EACH Vancomycin HCl (Vancomycin Random Level) 1 each 1X ONCE 11/24/17 06:00 11/24/17 06:01 DC 11/24/17 06:00 1 EACH Vancomycin HCl 500 mg/Sodium Chloride 100 ml @ 100 mls/hr QTUTHSA 11/26/17 16:00 11/26/17 16:00 100 MLS/HR Vancomycin HCl 2 gm/Sodium Chloride 500 ml @ 250 mls/hr 1X ONCE 11/23/17 15:00 11/23/17 16:59 DC 11/23/17 16:15 250 MLS/HR Labs: Lab Laboratory Tests Test 11/28/17 11:31 11/28/17 16:09 11/28/17 20:37 11/29/17 05:33 Glucose (Fingerstick) 170 mg/dL (70-99) 181 mg/dL (70-99) 248 mg/dL (70-99) White Blood Count 10.6 x10^3/uL (4.0-11.0) Red Blood Count 2.30 x10^6/uL (4.30-5.70) Hemoglobin 7.0 g/dL (13.0-17.5) Hematocrit 20.2 % (39.0-53.0) Mean Corpuscular Volume 88 fL (79-100) Mean Corpuscular Hemoglobin 31 pg (25-35) Mean Corpuscular Hemoglobin Concent 35 g/dL (31-37) Red Cell Distribution Width 30.0 % (11.5-14.5) Platelet Count 358 x10^3/uL (140-400) Neutrophils (%) (Auto) 83 % (31-73) Lymphocytes (%) (Auto) 5 % (24-48) Monocytes (%) (Auto) 10 % (0-9) Eosinophils (%) (Auto) 1 % (0-3) Basophils (%) (Auto) 0 % (0-3) Neutrophils # (Auto) 8.8 x10^3uL (1.8-7.7) Lymphocytes # (Auto) 0.5 x10^3/uL (1.0-4.8) Monocytes # (Auto) 1.1 x10^3/uL (0.0-1.1) Eosinophils # (Auto) 0.1 x10^3/uL (0.0-0.7) Basophils # (Auto) 0.0 x10^3/uL (0.0-0.2) Sodium Level 136 mmol/L (136-145) Potassium Level 4.5 mmol/L (3.5-5.1) Chloride Level 100 mmol/L (98-107) Carbon Dioxide Level 24 mmol/L (21-32) Anion Gap 12 (6-14) Blood Urea Nitrogen 87 mg/dL (8-26) Creatinine 8.5 mg/dL (0.7-1.3) Estimated GFR (Cockcroft-Gault) 8.0 Glucose Level 135 mg/dL (70-99) Calcium Level 7.4 mg/dL (8.5-10.1) Test 11/29/17 07:50 Glucose (Fingerstick) 118 mg/dL (70-99) Micro RUN DATE: 11/26/17 PAGE 1 RUN TIME: 1710 [facility] [address] [place] [address] Demarcus Galo M.D., [employer]eting Machine Operator [employer] PATIENT: HANNY LIVE ACCT: [id number] LOC: [address] [place] [address] U : [id number] AGE/SX: 52/M ROOM: 418 REG : 11/22/[address]: IMANI KERNS : 1965 BED: 1 DIS : STATUS: ADM IN TLOC: SPEC #: [id number] JAN: 11/23/17 STATUS: RES REQ #: [id number] RECD: 11/23/[address]: YANIRA GOMEZ MD SOURCE: TOE ENTR: 11/23/17 [facility] DR: IMANI KERNS [facility] RT DAJUAN RIVERA MD, ARCHANA MD NO PCP VANI, JOHN N MD ORDERED: ANAER/AEROB/GS Procedure Result ANAEROBIC-AEROBIC CULTURE Preliminary Preliminary report ANAEROBIC RES 1 Preliminary Comment No anaerobes recovered in 24 hours. AEROBIC CULT Final Final report AEROBIC RES 1 Final Staphylococcus aureus 4+ Based on susceptibility to oxacillin this isolate would be susceptible to: * Beta-lactam/beta-lactamase inhibitor combinations; such as: Amoxicillin-clavulanic acid Ampicillin-sulbactam * Antistaphylococcal cephems; such as: Cefaclor Cefuroxime * Antistaphylococcal carbapenems; such as: Imipenem Meropenem Most isolates of Staphylococcus sp. produce a beta- lactamase enzyme rendering them resistant to penicillin. Please contact the laboratory if penicillin is being considered for therapy. AEROBIC RES 2 Final Comment CONTINUED ON NEXT PAGE RUN DATE: 11/26/17 PAGE 2 RUN TIME: 1710 [facility] [address] [place] [address] Demarcus Galo M.D., [employer]eting [employer] Operator [employer] SPEC: [id number] PATIENT: HANNY LIVE [id number] ( Continued) Procedure Result AEROBIC RES 2 Final (continued) Pseudomonas aeruginosa 1+ ANTIMICROBIAL SUSCEPTIBILITY Final Comment S = Susceptible; I = Intermediate; R = Resistant P = Positive; N = Negative MICS are expressed in micrograms per mL Antibiotic RSLT#1 RSLT#2 RSLT#3 RSLT#4 Amikacin S =4 Cefepime S =8 Ceftazidime S =4 Ciprofloxacin R>=8 S<=0.25 Clindamycin R>=8 Erythromycin R>=8 Gentamicin S<=0.5 S =4 Imipenem S<=1 Levofloxacin R>=8 S =1 Linezolid S =2 Meropenem S<=0.25 Moxifloxacin R =4 Oxacillin S =0.5 Piperacillin S =8 Quinupristin/Dalfopristin S =0.5 Rifampin S<=0.5 Tetracycline S<=1 Ticarcillin S =32 Tobramycin S<=1 Trimethoprim/Sulfa S<=10 Vancomycin S<=0.5 GRAM STAIN Final Final report GRAM STAIN RES 1 Final Comment No white blood cells seen. GRAM STAIN RES 2 Final Comment CONTINUED ON NEXT PAGE RUN DATE: 11/26/17 PAGE 3 RUN TIME: 1710 [facility] [address] [place] [address] Demarcus Galo M.D., [employer]eting Machine Operator [employer] SPEC: [id number] PATIENT: HANNY LIVE [id number] ( Continued) Procedure Result GRAM STAIN RES 2 Final (continued) Few gram positive cocci [facility]formed at: [facility] [address] [facility] [address], [place], [place] [id number] Grain Buyer: IRENA Jimenez MD, Phone: [phone] Objective: Assessment: Rt 2nd toe ulcer with infection C/S + PSAE,MSSA ESRD Anemia DM HTN Plan: Plan of Care Cont zosyn dc IV Vanc local care CORRY GOMEZ MD Nov 29, 2017 09:48
--- NOTE | 2017-11-29 10:24 | PDOC ---
Renal-Progress Notes Subjective Notes Notes NONE History of Present Illness Hx of present illness STABLE Vitals Vitals Vital Signs Date Time Temp Pulse Resp B/P (MAP) Pulse Ox O2 Delivery O2 Flow Rate FiO2 11/29/17 07:00 97.7 73 18 132/65 (87) 99 Nasal Cannula 3.0 97.7 Weight Weight [ ] I.O. Intake and Output Intake and Output 11/29/17 07:00 Intake Total 1150 ml Balance 1150 ml Intake Oral 1100 ml IV Total 50 ml # Voids 2 Labs Labs Laboratory Tests Test 11/28/17 11:31 11/28/17 16:09 11/28/17 20:37 11/29/17 05:33 Glucose (Fingerstick) 170 mg/dL (70-99) 181 mg/dL (70-99) 248 mg/dL (70-99) White Blood Count 10.6 x10^3/uL (4.0-11.0) Red Blood Count 2.30 x10^6/uL (4.30-5.70) Hemoglobin 7.0 g/dL (13.0-17.5) Hematocrit 20.2 % (39.0-53.0) Mean Corpuscular Volume 88 fL (79-100) Mean Corpuscular Hemoglobin 31 pg (25-35) Mean Corpuscular Hemoglobin Concent 35 g/dL (31-37) Red Cell Distribution Width 30.0 % (11.5-14.5) Platelet Count 358 x10^3/uL (140-400) Neutrophils (%) (Auto) 83 % (31-73) Lymphocytes (%) (Auto) 5 % (24-48) Monocytes (%) (Auto) 10 % (0-9) Eosinophils (%) (Auto) 1 % (0-3) Basophils (%) (Auto) 0 % (0-3) Neutrophils # (Auto) 8.8 x10^3uL (1.8-7.7) Lymphocytes # (Auto) 0.5 x10^3/uL (1.0-4.8) Monocytes # (Auto) 1.1 x10^3/uL (0.0-1.1) Eosinophils # (Auto) 0.1 x10^3/uL (0.0-0.7) Basophils # (Auto) 0.0 x10^3/uL (0.0-0.2) Sodium Level 136 mmol/L (136-145) Potassium Level 4.5 mmol/L (3.5-5.1) Chloride Level 100 mmol/L (98-107) Carbon Dioxide Level 24 mmol/L (21-32) Anion Gap 12 (6-14) Blood Urea Nitrogen 87 mg/dL (8-26) Creatinine 8.5 mg/dL (0.7-1.3) Estimated GFR (Cockcroft-Gault) 8.0 Glucose Level 135 mg/dL (70-99) Calcium Level 7.4 mg/dL (8.5-10.1) Test 11/29/17 07:50 Glucose (Fingerstick) 118 mg/dL (70-99) Micro Micro Microbiology 11/22/17 Blood Culture - Final, Complete NO GROWTH AFTER 5 DAYS 11/23/17 Anaerobic/Aerobic Culture - Final, Complete 11/23/17 Anaerobic Culture Result 1 (SEN) - Final, Complete 11/23/17 Aerobic Culture - Final, Complete 11/23/17 Aerobic Culture Result 1 (SEN) - Final, Complete 11/23/17 Aerobic Culture Result 2 (SEN) - Final, Complete 11/23/17 Antimicrobic Susceptibility - Final, Complete 11/23/17 Gram Stain - Final, Complete 11/23/17 Gram Stain Result 1 (SEN) - Final, Complete 11/23/17 Gram Stain Result 2 (SEN) - Final, Complete Review of Systems Constitutional: yes: alert, oriented Ears/Nose/Throat: Yes: no symptom reported Eyes: Yes: no symptom reported Pulmonary: Yes no symptom reported Cardiovascular: Yes no symptom reported Gastrointestional: Yes: no symptom reported Genitourinary: Yes: no symptom reported Musculoskeletal: Yes: foot pain Skin: Yes no symptom reported Psychiatric/Neurological: Yes: no symptom reported Endocrine: Yes: no symptom reported Physical Exam General Appearance: no apparent distress Skin: warm Respiratory: bilateral CTA Heart: S1S2 Abdomen: soft, bowel sounds present Genitourinary: bladder flat Extremities: pulses present Neurology: alert, oriented Assessment Assessment IMP ESRD DM II HTN ANEMIA TOE WOUND PLAN ANTIBIOTICS HD TODAY UF TO DW ARANESP PRBC TODAY MARY BETH CARRILLO MD Nov 29, 2017 10:24
--- NOTE | 2017-11-29 12:31 | PDOC ---
PROGRESS NOTES Chief Complaint Chief Complaint anemia symptomatic anemia, ESRD s/p 3 u PRBC 1 unit 11/29 small toe wound with hammer toe and ulcer, may have difficulty healing ESRD on HD Dm2, now off meds, diet controlled, has lost 40 lbs intentionally obesity htn, chronic mild chronic diastolic CHF stable weakness and debility, acquired obesity, BMI 32 left toes and rt big toe s/p amputation gout plan: fu with id, talked to ID, wound cx + pseudomonas and staph areus MSSA vanco and zosyn , change to kefelx and levaquin as per ID soon I and D today with dr. Velasco cont home meds cont HD wound care gout, add prednisone x3ds, on NSAIDS cream History of Present Illness History of Present Illness ROS: no fever, chills,sob or chest pain HB<7 11/27 got 1u PRBC right wrist left knee gout pain, better today pt wants go home if no i and d now pt has insurance, but only HD weekly , said too many things personal, willing to try more Vitals Vitals Vital Signs Date Time Temp Pulse Resp B/P (MAP) Pulse Ox O2 Delivery O2 Flow Rate FiO2 11/29/17 10:35 97.9 75 16 133/65 97.9 11/29/17 07:00 99 Nasal Cannula 3.0 Physical Exam Physical Exam GENERAL: Alert, oriented gentleman, not in distress. HEENT: NAD. NECK: Supple, no JVP, no lymphadenopathy. LUNGS: Clear. HEART: S1 and S2 regular. ABDOMEN: Benign. EXTREMITIES: No edema or cyanosis. The patient does have a nicely healed TMA on the left side. Right big toe amputation is unremarkable. Second toe is a hammertoe where the distal part of the toe bends and touches the ground where he has an ulcer and there is a purulent drainage. The depth of the ulcer cannot be judged as it is a small ulcer, but simone pus is coming out. There is another ulcer on the plantar surface of the toe, which has healthy granulation tissue. Dorsalis pedis is palpable. NEUROLOGICAL: The patient is neurologically intact. General: Alert, Oriented X3, Cooperative, No acute distress Heart: Regular rate Lungs: Clear, Wheezing Abdomen: Soft Extremities: Normal pulses Skin: No rashes, Other (left foot TMA and right great toe amputation incisions are well-healed. There is a 1cm x 1cm wound on the tip of the right second toe. There is no active drainage at this time and no foul smell. There is a smaller wound distal to this with healthy, pink granulation tissue. There is no tenderness to palpation of the foot or toe. No erythema or warmth. Dorsalis pedis and posterior tibialis pulses are palpable, bilaterally. Diminished sensation due to chronic peripheral neuropathy. ) Labs LABS Laboratory Tests Test 11/28/17 16:09 11/28/17 20:37 11/29/17 05:33 11/29/17 07:50 Glucose (Fingerstick) 181 mg/dL (70-99) 248 mg/dL (70-99) 118 mg/dL (70-99) White Blood Count 10.6 x10^3/uL (4.0-11.0) Red Blood Count 2.30 x10^6/uL (4.30-5.70) Hemoglobin 7.0 g/dL (13.0-17.5) Hematocrit 20.2 % (39.0-53.0) Mean Corpuscular Volume 88 fL (79-100) Mean Corpuscular Hemoglobin 31 pg (25-35) Mean Corpuscular Hemoglobin Concent 35 g/dL (31-37) Red Cell Distribution Width 30.0 % (11.5-14.5) Platelet Count 358 x10^3/uL (140-400) Neutrophils (%) (Auto) 83 % (31-73) Lymphocytes (%) (Auto) 5 % (24-48) Monocytes (%) (Auto) 10 % (0-9) Eosinophils (%) (Auto) 1 % (0-3) Basophils (%) (Auto) 0 % (0-3) Neutrophils # (Auto) 8.8 x10^3uL (1.8-7.7) Lymphocytes # (Auto) 0.5 x10^3/uL (1.0-4.8) Monocytes # (Auto) 1.1 x10^3/uL (0.0-1.1) Eosinophils # (Auto) 0.1 x10^3/uL (0.0-0.7) Basophils # (Auto) 0.0 x10^3/uL (0.0-0.2) Sodium Level 136 mmol/L (136-145) Potassium Level 4.5 mmol/L (3.5-5.1) Chloride Level 100 mmol/L (98-107) Carbon Dioxide Level 24 mmol/L (21-32) Anion Gap 12 (6-14) Blood Urea Nitrogen 87 mg/dL (8-26) Creatinine 8.5 mg/dL (0.7-1.3) Estimated GFR (Cockcroft-Gault) 8.0 Glucose Level 135 mg/dL (70-99) Calcium Level 7.4 mg/dL (8.5-10.1) Assessment and Plan Assessmemt and Plan Problems Medical Problems: (1) Toe infection Status: Acute Comment Review of Relevant I have reviewed the following items donna (where applicable) has been applied. Labs Laboratory Tests Test 11/27/17 16:59 11/27/17 21:14 11/28/17 06:05 11/28/17 06:51 Glucose (Fingerstick) 159 mg/dL (70-99) 220 mg/dL (70-99) 130 mg/dL (70-99) White Blood Count 11.6 x10^3/uL (4.0-11.0) Red Blood Count 2.46 x10^6/uL (4.30-5.70) Hemoglobin 7.3 g/dL (13.0-17.5) Hematocrit 21.3 % (39.0-53.0) Mean Corpuscular Volume 86 fL (79-100) Mean Corpuscular Hemoglobin 30 pg (25-35) Mean Corpuscular Hemoglobin Concent 35 g/dL (31-37) Red Cell Distribution Width 16.4 % (11.5-14.5) Platelet Count 365 x10^3/uL (140-400) Neutrophils (%) (Auto) 84 % (31-73) Lymphocytes (%) (Auto) 3 % (24-48) Monocytes (%) (Auto) 11 % (0-9) Eosinophils (%) (Auto) 1 % (0-3) Basophils (%) (Auto) 1 % (0-3) Neutrophils # (Auto) 9.8 x10^3uL (1.8-7.7) Lymphocytes # (Auto) 0.4 x10^3/uL (1.0-4.8) Monocytes # (Auto) 1.3 x10^3/uL (0.0-1.1) Eosinophils # (Auto) 0.1 x10^3/uL (0.0-0.7) Basophils # (Auto) 0.1 x10^3/uL (0.0-0.2) Sodium Level 134 mmol/L (136-145) Potassium Level 4.7 mmol/L (3.5-5.1) Chloride Level 99 mmol/L (98-107) Carbon Dioxide Level 25 mmol/L (21-32) Anion Gap 10 (6-14) Blood Urea Nitrogen 62 mg/dL (8-26) Creatinine 7.2 mg/dL (0.7-1.3) Estimated GFR (Cockcroft-Gault) 9.7 Glucose Level 134 mg/dL (70-99) Calcium Level 8.0 mg/dL (8.5-10.1) Test 11/28/17 11:31 11/28/17 16:09 11/28/17 20:37 11/29/17 05:33 Glucose (Fingerstick) 170 mg/dL (70-99) 181 mg/dL (70-99) 248 mg/dL (70-99) White Blood Count 10.6 x10^3/uL (4.0-11.0) Red Blood Count 2.30 x10^6/uL (4.30-5.70) Hemoglobin 7.0 g/dL (13.0-17.5) Hematocrit 20.2 % (39.0-53.0) Mean Corpuscular Volume 88 fL (79-100) Mean Corpuscular Hemoglobin 31 pg (25-35) Mean Corpuscular Hemoglobin Concent 35 g/dL (31-37) Red Cell Distribution Width 30.0 % (11.5-14.5) Platelet Count 358 x10^3/uL (140-400) Neutrophils (%) (Auto) 83 % (31-73) Lymphocytes (%) (Auto) 5 % (24-48) Monocytes (%) (Auto) 10 % (0-9) Eosinophils (%) (Auto) 1 % (0-3) Basophils (%) (Auto) 0 % (0-3) Neutrophils # (Auto) 8.8 x10^3uL (1.8-7.7) Lymphocytes # (Auto) 0.5 x10^3/uL (1.0-4.8) Monocytes # (Auto) 1.1 x10^3/uL (0.0-1.1) Eosinophils # (Auto) 0.1 x10^3/uL (0.0-0.7) Basophils # (Auto) 0.0 x10^3/uL (0.0-0.2) Sodium Level 136 mmol/L (136-145) Potassium Level 4.5 mmol/L (3.5-5.1) Chloride Level 100 mmol/L (98-107) Carbon Dioxide Level 24 mmol/L (21-32) Anion Gap 12 (6-14) Blood Urea Nitrogen 87 mg/dL (8-26) Creatinine 8.5 mg/dL (0.7-1.3) Estimated GFR (Cockcroft-Gault) 8.0 Glucose Level 135 mg/dL (70-99) Calcium Level 7.4 mg/dL (8.5-10.1) Test 11/29/17 07:50 Glucose (Fingerstick) 118 mg/dL (70-99) Laboratory Tests Test 11/28/17 16:09 11/28/17 20:37 11/29/17 05:33 11/29/17 07:50 Glucose (Fingerstick) 181 mg/dL (70-99) 248 mg/dL (70-99) 118 mg/dL (70-99) White Blood Count 10.6 x10^3/uL (4.0-11.0) Red Blood Count 2.30 x10^6/uL (4.30-5.70) Hemoglobin 7.0 g/dL (13.0-17.5) Hematocrit 20.2 % (39.0-53.0) Mean Corpuscular Volume 88 fL (79-100) Mean Corpuscular Hemoglobin 31 pg (25-35) Mean Corpuscular Hemoglobin Concent 35 g/dL (31-37) Red Cell Distribution Width 30.0 % (11.5-14.5) Platelet Count 358 x10^3/uL (140-400) Neutrophils (%) (Auto) 83 % (31-73) Lymphocytes (%) (Auto) 5 % (24-48) Monocytes (%) (Auto) 10 % (0-9) Eosinophils (%) (Auto) 1 % (0-3) Basophils (%) (Auto) 0 % (0-3) Neutrophils # (Auto) 8.8 x10^3uL (1.8-7.7) Lymphocytes # (Auto) 0.5 x10^3/uL (1.0-4.8) Monocytes # (Auto) 1.1 x10^3/uL (0.0-1.1) Eosinophils # (Auto) 0.1 x10^3/uL (0.0-0.7) Basophils # (Auto) 0.0 x10^3/uL (0.0-0.2) Sodium Level 136 mmol/L (136-145) Potassium Level 4.5 mmol/L (3.5-5.1) Chloride Level 100 mmol/L (98-107) Carbon Dioxide Level 24 mmol/L (21-32) Anion Gap 12 (6-14) Blood Urea Nitrogen 87 mg/dL (8-26) Creatinine 8.5 mg/dL (0.7-1.3) Estimated GFR (Cockcroft-Gault) 8.0 Glucose Level 135 mg/dL (70-99) Calcium Level 7.4 mg/dL (8.5-10.1) Microbiology 11/22/17 Blood Culture - Final, Complete NO GROWTH AFTER 5 DAYS 11/23/17 Anaerobic/Aerobic Culture - Final, Complete 11/23/17 Anaerobic Culture Result 1 (SEN) - Final, Complete 11/23/17 Aerobic Culture - Final, Complete 11/23/17 Aerobic Culture Result 1 (SEN) - Final, Complete 11/23/17 Aerobic Culture Result 2 (SEN) - Final, Complete 11/23/17 Antimicrobic Susceptibility - Final, Complete 11/23/17 Gram Stain - Final, Complete 11/23/17 Gram Stain Result 1 (SEN) - Final, Complete 11/23/17 Gram Stain Result 2 (SEN) - Final, Complete Medications Current Medications Ondansetron HCl (Zofran) 4 mg PRN Q8HRS PRN IV NAUSEA/VOMITING 1ST CHOICE; Start 11/23/17 at 00:30; Stop 11/24/17 at 00:29; Status DC Morphine Sulfate (Morphine Sulfate) 4 mg PRN Q2HR PRN IV SEVERE PAIN; Start at 00:30; Stop 11/24/17 at 00:29; Status DC Ascorbic Acid (Vitamin C) 500 mg DAILY PO Last administered on 11/28/17 08:37 ; Start 11/23/17 at 09:00 Atorvastatin Calcium (Lipitor) 20 mg QHS PO Last administered on 11/28/17 20: 48; Start 11/23/17 at 21:00 Ferrous Sulfate (Feosol) 325 mg BID PO Last administered on 11/28/17 20:48; Start 11/23/17 at 09:00 Folic Acid (Folic Acid) 1 mg DAILY PO Last administered on 11/28/17 08:37; Start 11/23/17 at 09:00 Furosemide (Lasix) 80 mg BID94 PO Last administered on 11/28/17 16:43; Start 11/23/17 at 09:00 Carvedilol (Coreg) 50 mg BIDWMEALS PO Last administered on 11/28/17 16:43; Start 11/23/17 at 08:00 Nifedipine (Procardia Xl) 60 mg DAILY PO Last administered on 11/28/17 08:37; Start 11/23/17 at 09:00 Calcium Acetate (Phoslo) 1,334 mg TIDWMEALS PO Last administered on 11/28/17 16:42; Start 11/23/17 at 08:00 Vancomycin HCl (Vanco Per Pharmacy) 1 each PRN DAILY PRN MC SEE COMMENTS Last administered on 11/28/17at 15:13; Start 11/23/17 at 13:15; Stop 11/29/17 at 09:49 ; Status DC Piperacillin Sod/ Tazobactam Sod 2.25 gm/Sodium Chloride 50 ml @ 100 mls/hr Q8HRS IV Last administered on 11/29/17at 05:54; Start 11/23/17 at 14:00 Vancomycin HCl 2 gm/Sodium Chloride 500 ml @ 250 mls/hr 1X ONCE IV Last administered on 11/23/17 16:15; Start 11/23/17 at 15:00; Stop 11/23/17 at 16:59 ; Status DC Vancomycin HCl (Vancomycin Random Level) 1 each 1X ONCE MC Last administered on 11/24/17at 06:00; Start 11/24/17 at 06:00; Stop 11/24/17 at 06:01; Status DC Sodium Chloride 1,000 ml @ 1,000 mls/hr Q1H PRN IV hypotension; Start 11/24/17 at 11:00; Stop 11/24/17 at 18:00; Status DC Albumin Human 200 ml @ 200 mls/hr 1X PRN PRN IV Hypotension; Start 11/24/17 at 11:00; Stop 11/24/17 at 16:59; Status DC Acetaminophen (Tylenol) 500 mg 1X PRN PRN PO MILD PAIN / TEMP; Start 11/24/17 at 11:00; Stop 11/24/17 at 18:00; Status DC Diphenhydramine HCl (Benadryl) 25 mg 1X PRN PRN IV ITCHING; Start 11/24/17 at 11:00; Stop 11/24/17 at 18:00; Status DC Diphenhydramine HCl (Benadryl) 25 mg 1X PRN PRN IV ITCHING; Start 11/24/17 at 11:00; Stop 11/24/17 at 18:00; Status DC Labetalol HCl (Normodyne Iv Push) 10 mg PRN Q1HR PRN IVP SBP > 180; Start 11/24 at 11:00; Stop 11/24/17 at 18:00; Status DC Clonidine HCl (Catapres) 0.1 mg 1X PRN PRN PO SBP > 180; Start 11/24/17 at 11: 00; Stop 11/24/17 at 18:00; Status DC Sodium Chloride 1,000 ml @ 400 mls/hr Q2H30M PRN IV PATENCY; Start 11/24/17 at 11:00; Stop 11/24/17 at 18:00; Status DC Info (PHARMACY MONITORING -- do not chart) 1 each PRN DAILY PRN MC SEE COMMENTS ; Start 11/24/17 at 11:00; Status Cancel Vancomycin HCl 500 mg/Sodium Chloride 100 ml @ 100 mls/hr QTUTHSASU IV Last administered on 11/24/17at 17:06; Start 11/24/17 at 16:00; Stop 11/26/17 at 13:15 ; Status DC Lactobacillus Rhamnosus (Culturelle) 1 cap BID PO Last administered on at 20:48; Start 11/24/17 at 21:00 Oxycodone/ Acetaminophen (Percocet 5/325) 1 tab PRN Q4HRS PRN PO SEVERE PAIN Last administered on 11/26/17at 20:51; Start 11/25/17 at 03:30 Heparin Sodium (Porcine) (Heparin Sq) 5,000 unit Q12HR SQ Last administered on 11/28/17at 20:50; Start 11/25/17 at 10:00 Sodium Chloride 1,000 ml @ 1,000 mls/hr Q1H PRN IV hypotension; Start 11/26/17 at 07:56; Stop 11/26/17 at 13:55; Status DC Sodium Chloride 1,000 ml @ 400 mls/hr Q2H30M PRN IV PATENCY; Start 11/26/17 at 07:56; Stop 11/26/17 at 19:55; Status DC Info (PHARMACY MONITORING -- do not chart) 1 each PRN DAILY PRN MC SEE COMMENTS ; Start 11/26/17 at 08:00; Stop 11/26/17 at 08:03; Status DC Info (PHARMACY MONITORING -- do not chart) 1 each PRN DAILY PRN MC SEE COMMENTS ; Start 11/26/17 at 08:00; Stop 11/26/17 at 08:03; Status DC Diclofenac Sodium (Voltaren) 1 rowan BID TP Last administered on 11/28/17at 20:48 ; Start 11/26/17 at 10:45 Vancomycin HCl 500 mg/Sodium Chloride 100 ml @ 100 mls/hr QTUTHSA IV Last administered on 11/26/17at 16:00; Start 11/26/17 at 16:00; Stop 11/29/17 at 09:49 ; Status DC Acetaminophen (Tylenol) 650 mg PRN Q6HRS PRN PO FEVER; Start 11/26/17 at 14:45 Ondansetron HCl (Zofran) 4 mg PRN Q6HRS PRN IV NAUSEA/VOMITING; Start 11/26/17 at 14:45 Morphine Sulfate (Morphine Sulfate) 2 mg PRN Q2HR PRN IV MODERATE TO SEVERE PAIN; Start 11/26/17 at 14:45 Tramadol HCl (Ultram) 50 mg PRN Q6HRS PRN PO MILD TO MODERATE PAIN Last administered on 11/27/17at 23:52; Start 11/26/17 at 14:45 Docusate Sodium (Colace) 100 mg PRN DAILY PRN PO CONSTIPATION; Start 11/26/17 at 14:45 Insulin Human Lispro (HumaLOG) 0-9 UNITS TIDWMEALS SQ Last administered on 11/28at 16:53; Start 11/27/17 at 17:00 Dextrose (Dextrose 50%-Water Syringe) 12.5 gm PRN Q15MIN PRN IV SEE COMMENTS; Start 11/27/17 at 12:30 Prednisone (Prednisone) 20 mg DAILY PO Last administered on 11/28/17at 08:37; Start 11/27/17 at 12:30; Stop 11/30/17 at 12:29 Darbepoetin Ken (Aranesp) 60 mcg WEEKLYHS SQ Last administered on 11/28/17at 20 :51; Start 11/28/17 at 21:00 Ondansetron HCl (Zofran) 4 mg PRN Q6HRS PRN IV NAUSEA/VOMITING; Start 11/29/17 at 07:00; Stop 11/30/17 at 06:59 Fentanyl Citrate (Fentanyl 2ml Vial) 25 mcg PRN Q5MIN PRN IV MILD PAIN; Start 11/29/17 at 07:00; Stop 11/30/17 at 06:59 Fentanyl Citrate (Fentanyl 2ml Vial) 50 mcg PRN Q5MIN PRN IV MODERATE TO SEVERE PAIN; Start 11/29/17 at 07:00; Stop 11/30/17 at 06:59 Morphine Sulfate (Morphine Sulfate) 1 mg PRN Q10MIN PRN IV SEVERE PAIN; Start 11/29/17 at 07:00; Stop 11/30/17 at 06:59 Ringer's Solution 1,000 ml @ 30 mls/hr Q24H IV ; Start 11/29/17 at 07:00; Stop 11/29/17 at 18:59 Lidocaine HCl (Xylocaine-Mpf 1% 2ml Vial) 2 ml PRN 1X PRN ID IV START; Start at 07:00; Stop 11/30/17 at 06:59 Hydromorphone HCl (Dilaudid) 0.5 mg PRN Q10MIN PRN IV SEV PAIN, Second choice; Start 11/29/17 at 07:00; Stop 11/30/17 at 06:59 Prochlorperazine Edisylate (Compazine) 5 mg PACU PRN PRN IV NAUSEA, MRX1; Start 11/29/17 at 07:00; Stop 11/30/17 at 06:59 Sodium Chloride 1,000 ml @ 1,000 mls/hr Q1H PRN IV hypotension; Start 11/29/17 at 07:20; Stop 11/29/17 at 13:19 Labetalol HCl (Normodyne Iv Push) 10 mg PRN Q1HR PRN IVP SBP > 180; Start 11/29 at 07:30; Stop 11/30/17 at 07:29 Sodium Chloride 1,000 ml @ 400 mls/hr Q2H30M PRN IV PATENCY; Start 11/29/17 at 07:20; Stop 11/29/17 at 19:19 Info (PHARMACY MONITORING -- do not chart) 1 each PRN DAILY PRN MC SEE COMMENTS ; Start 11/29/17 at 07:30 Info (PHARMACY MONITORING -- do not chart) 1 each PRN DAILY PRN MC SEE COMMENTS ; Start 11/29/17 at 07:30; Status UNV Active Scripts Active [Calcium Acetate] 667 MG Capsule 1,334 Mg PO TIDWMEALS 30 Days Reported Ascorbic Acid 500 Mg Tablet 500 Mg PO Catapres-Tts 1 (Clonidine) 1 Each Patch.tdwk 1 Each TD QTU Lipitor (Atorvastatin Calcium) 20 Mg Tablet 20 Mg PO DAILY Carvedilol 25 Mg Tablet 50 Mg PO BIDWMEALS Vitamin D2 (Ergocalciferol (Vitamin D2)) 50,000 Unit Capsule 50,000 Unit PO QSU Ferrous Sulfate 325 Mg Tablet 325 Mg PO BID Folic Acid 1 Mg Tablet 1 Mg PO DAILY Procardia Xl (Nifedipine) 60 Mg Tab.er.24 60 Mg PO DAILY Furosemide 80 Mg Tablet 80 Mg PO BID Vitals/I & O Vital Sign - Last 24 Hours 11/28/17 11/28/17 11/28/17 11/28/17 15:00 16:43 19:00 20:00 Temp 97.5 97.9 97.5 97.9 Pulse 73 73 79 Resp 18 18 B/P (MAP) 131/70 (90) 131/70 132/72 (92) Pulse Ox 100 94 O2 Delivery Room Air Room Air Room Air 11/28/17 11/29/17 11/29/17 11/29/17 23:00 03:00 07:00 10:21 Temp 99.5 97.9 97.7 97.9 99.5 97.9 97.7 97.9 Pulse 77 69 73 72 Resp 18 18 18 12 B/P (MAP) 121/64 (83) 125/68 (87) 132/65 (87) 123/62 Pulse Ox 94 98 99 O2 Delivery Room Air Room Air Nasal Cannula O2 Flow Rate 3.0 11/29/17 10:35 Temp 97.9 97.9 Pulse 75 Resp 16 B/P (MAP) 133/65 Intake and Output 11/28/17 11/28/17 11/29/17 15:00 23:00 07:00 Intake Total 50 ml 800 ml 300 ml Balance 50 ml 800 ml 300 ml TEOFILO JUDGE MD Nov 29, 2017 12:31
[2017-11-29] MEDS ORDERED: BUPIVACAINE MPF 0.25% 30 ML VIAL. ONE (13:40)
[2017-11-29] MEDS ORDERED: PROPOFOL 20 ML IV ONE (13:54)
[2017-11-29] MEDS ORDERED: fentaNYL PF VIAL 100 MCG/2 ML VIAL ONE (13:54)
[2017-11-29] MEDS ORDERED: MIDAZOLAM HCL/PF 2 MG/2 ML VIAL. ONE (13:55)
--- NOTE | 2017-11-29 15:27 | PDOC4 ---
Operative Note Operative Note Date of Procedure: November 29, 2017 Pre-Op Diagnosis: * right second toe, hammertoe * right second toe ulcer/open wound Post-Op Diagnosis: same Procedures: 1. Tenotomy, percutaneous, toe, single tendon, deep flexor tendon of second toe 2. Debridement second toe wound 1 cm2, including epidermis, dermis, and subcutaneous cutaneous tissue Surgeon: Kwasi Velasco MD Supervisor Sewing Department: Ayanna Beverly PA-C Anesthesia: General EBL: 10 mL Specimens Obtained: none Complications: none Drains: none Indications for Procedure: The patient is a 52-year-old man with prior great toe amputation. He has developed an ulcer on the plantar aspect of the second toe which also has a hammertoe. Although he has been improving some with local wound care, he woul benefit from flexor tenotomy to offload the tip of the toe, and likely save the toe. I had talked to them about amputation and he is not willing to proceed with that. Flexor tenotomy and debridement has a good chance of allowing healing and preservation of the toe. We talked about the potential risks of ongoing infection, need for amputation, or other potential surgical or anesthetic complications. All of his questions about surgery were answered and he desires to proceed. Procedure in Detail: The patient was identified in the preoperative holding area. The correct lower extremity was marked by me. The patient was taken to the operating room where MAC anesthesia was used. The patient was positioned supine on the hospital bed. He remains on scheduled antibiotics. A timeout procedure was performed. The limb was prepared in sterile fashion with Betadine. Sterile drapes were applied. Digital block anesthesia of the right second toe was performed with 0.25% Marcaine without epinephrine. A flexor tenotomy was performed, using a 15 blade scalpel from the plantar aspect of the distal portion of the middle phalanx, while maintaining extension of the toe for tension on the flexor digitorum profundus tendon. The toe was noted to straighten once the percutaneous tenotomy was performed. Next debridement of the toe ulcer was performed with a 15 blade scalpel, and a rongeur, performing excisional debridement of skin, including epidermis, dermis and then some subcutaneous tissue. There does not appear to be bone involvement. Irrigation was used with saline. Monscierge was used to pack the distal toe wound. Sterile dressings were applied. Needle and sponge counts were correct. There were no apparent complications. KWASI VELASCO MD Nov 29, 2017 15:27
[2017-11-29] MEDS ORDERED: oxyCODONE IR 5 MG TABLET PO PRN (15:30)
[2017-11-29] MEDS ORDERED: DEXTROSE 50% 25 GM / 50ML DISP.SYRIN. IV PRN (15:30)
[2017-11-29] MEDS ORDERED: POLYETHYLENE GLYCOL 3350 17 GM PACKET. PO PRN (15:30)
[2017-11-29] MEDS ORDERED: HYDROcodone/APAP 7.5/325MG 1 TAB TABLET PO PRN (15:30)
[2017-11-29] MEDS: ATORVASTATIN CALCIUM 20 MG TABLET PO SCH (21:45)
[2017-11-29] MEDS: traMADol 50 MG TABLET PO PRN (21:46)
[2017-11-30 03:30] VITALS: BP 134/74
[2017-11-30] MEDS: PIPERACILLIN/TAZOBACTAM 2.25 GM in IV NORMAL SALINE 50ML 50 ML IV SCH ×2 (05:54→14:41)
[2017-11-30] MEDS ORDERED: MAGNESIUM HYDROXIDE 2,400 MG/30 ML ORAL.SUSP. PO PRN (06:00)
[2017-11-30 07:00] VITALS: BP 160/84
[2017-11-30] MEDS: INSULIN LISPRO 300 UNITS/3 ML INSULN.PEN. SQ SCH ×2 (08:00→12:28)
[2017-11-30] MEDS: CALCIUM ACETATE 667 MG CAPSULE PO SCH ×2 (08:38→12:21)
[2017-11-30] MEDS: LACTOBACILLUS RHAMNOSUS GG 1 CAPSULE. PO SCH (08:38)
[2017-11-30] MEDS: FUROSEMIDE 80 MG TABLET. PO SCH (08:39)
[2017-11-30] MEDS: FERROUS SULFATE 325 MG TABLET. PO SCH (08:40)
[2017-11-30] MEDS: FOLIC ACID 1 MG TABLET. PO SCH (08:40)
[2017-11-30] MEDS: CARVEDILOL 12.5 MG TABLET. PO SCH (08:40)
[2017-11-30] MEDS: traMADol 50 MG TABLET PO PRN ×2 (08:40→14:43)
[2017-11-30] MEDS: predniSONE 20 MG TABLET PO SCH (08:40)
[2017-11-30] MEDS: ASCORBIC ACID 500 MG TABLET PO SCH (08:40)
[2017-11-30] MEDS: DICLOFENAC SODIUM 1% TOPICAL GEL 100GM TUBE. TP SCH (08:41)
[2017-11-30] MEDS: HEPARIN PF for SUB-Q USE 5,000 UNIT/0.5 ML VIAL. SQ SCH (08:42)
[2017-11-30] MEDS ORDERED: SENNOSIDES/DOCUSATE 8.6/50MG TABLET. PO SCH (09:00)
--- NOTE | 2017-11-30 10:21 | PDOC ---
Infectious Disease Note Subjective: Subjective pt doing ok postop pain is under control no diarrhea Denies N/V/cramps No fevers ROS: ROS Negative except for above. Vital Signs: Vital Signs Vital Signs Date Time Temp Pulse Resp B/P (MAP) Pulse Ox O2 Delivery O2 Flow Rate FiO2 11/30/17 08:40 96 Room Air 11/30/17 08:40 72 160/84 11/30/17 07:00 98.8 18 98.8 11/29/17 15:35 2 Physical Exam: PHYSICAL EXAM GENERAL: Alert, oriented gentleman, not in distress. HEENT: NAD. NECK: Supple, no JVP, no lymphadenopathy. LUNGS: Clear. HEART: S1 and S2 regular. ABDOMEN: Benign. EXTREMITIES: No edema or cyanosis. The patient does have a nicely healed TMA on the left side. Right big toe amputation is unremarkable. Second toe is a hammertoe where the distal part of the toe bends and touches the ground where he has an ulcer and there is a purulent drainage. The depth of the ulcer cannot be judged as it is a small ulcer, but simone pus is coming out. There is another ulcer on the plantar surface of the toe, which has healthy granulation tissue. Dorsalis pedis is palpable. NEUROLOGICAL: The patient is neurologically intact. Medications: Inpatient Meds: Current Medications Medications (Trade) Dose Ordered Sig/Solomon Start Time Stop Time Status Last Admin Dose Admin Acetaminophen (Tylenol) 650 mg PRN Q6HRS PRN 11/26/17 14:45 Acetaminophen/ Hydrocodone Bitart (Lortab 7.5/325) 1 tab PRN Q4HRS PRN 11/29/17 15:30 Albumin Human 200 ml @ 200 mls/hr 1X PRN PRN 11/24/17 11:00 11/24/17 16:59 DC Ascorbic Acid (Vitamin C) 500 mg DAILY 11/23/17 09:00 11/30/17 08:40 500 MG Atorvastatin Calcium (Lipitor) 20 mg QHS 11/23/17 21:00 11/29/17 21:45 20 MG Bupivacaine HCl (Sensorcaine Mpf 0.25%) 30 ml STK-MED ONCE 11/29/17 13:40 11/29/17 14:40 DC 11/29/17 15:04 6 ML Calcium Acetate (Phoslo) 1,334 mg TIDWMEALS 11/23/17 08:00 11/30/17 08:38 1,334 MG Carvedilol (Coreg) 50 mg BIDWMEALS 11/23/17 08:00 11/30/17 08:40 50 MG Clonidine HCl (Catapres) 0.1 mg 1X PRN PRN 11/24/17 11:00 11/24/17 18:00 DC Darbepoetin Ken (Aranesp) 60 mcg WEEKLYHS 11/28/17 21:00 11/28/17 20:51 60 MCG Dextrose (Dextrose 50%-Water Syringe) 12.5 gm PRN Q15MIN PRN 11/29/17 15:30 UNV Diclofenac Sodium (Voltaren) 1 rowan BID 11/26/17 10:45 11/30/17 08:41 1 ROWAN Diphenhydramine HCl (Benadryl) 25 mg 1X PRN PRN 11/24/17 11:00 11/24/17 18:00 DC Docusate Sodium (Colace) 100 mg PRN DAILY PRN 11/26/17 14:45 Fentanyl Citrate (Fentanyl 2ml Vial) 100 mcg STK-MED ONCE 11/29/17 13:54 11/29/17 13:55 DC Ferrous Sulfate (Feosol) 325 mg BID 11/23/17 09:00 11/30/17 08:40 325 MG Folic Acid (Folic Acid) 1 mg DAILY 11/23/17 09:00 11/30/17 08:40 1 MG Furosemide (Lasix) 80 mg [id number] 11/23/17 09:00 11/30/17 08:39 80 MG Heparin Sodium (Porcine) (Heparin Sq) 5,000 unit Q12HR 11/25/17 10:00 11/30/17 08:42 5,000 UNIT Hydromorphone HCl (Dilaudid) 0.5 mg PRN Q10MIN PRN 11/29/17 07:00 11/29/17 19:54 DC Info (PHARMACY MONITORING -- do not chart) 1 each PRN DAILY PRN 11/29/17 07:30 UNV Insulin Human Lispro (HumaLOG) 0-9 UNITS TIDWMEALS 11/27/17 17:00 11/28/17 16:53 4 UNITS Labetalol HCl (Normodyne Iv Push) 10 mg PRN Q1HR PRN 11/29/17 07:30 11/30/17 07:29 DC Lactobacillus Rhamnosus (Culturelle) 1 cap BID 11/24/17 21:00 11/30/17 08:38 1 CAP Lidocaine HCl (Xylocaine-Mpf 1% 2ml Vial) 2 ml PRN 1X PRN 11/29/17 07:00 11/29/17 19:54 DC Magnesium Hydroxide (Milk Of Magnesia) 2,400 mg 1X PRN PRN 11/30/17 06:00 12/01/17 05:59 Midazolam HCl (Versed) 2 mg STK-MED ONCE 11/29/17 13:55 11/29/17 13:56 DC Morphine Sulfate (Morphine Sulfate) 1 mg PRN Q10MIN PRN 11/29/17 07:00 11/29/17 19:54 DC Nifedipine (Procardia Xl) 60 mg DAILY 11/23/17 09:00 11/30/17 08:39 60 MG Ondansetron HCl (Zofran) 4 mg PRN Q4HRS PRN 11/29/17 15:30 11/29/17 15:30 DC Oxycodone HCl (Roxicodone) 5 mg PRN Q3HRS PRN 11/29/17 15:30 Oxycodone/ Acetaminophen (Percocet 5/325) 1 tab PRN Q4HRS PRN 11/25/17 03:30 11/26/17 20:51 1 TAB Piperacillin Sod/ Tazobactam Sod 2.25 gm/Sodium Chloride 50 ml @ 100 mls/hr Q8HRS 11/23/17 14:00 11/30/17 05:54 100 MLS/HR Polyethylene Glycol (miraLAX PACKET) 17 gm PRN DAILY PRN 11/29/17 15:30 Prednisone (Prednisone) 20 mg DAILY 11/27/17 12:30 11/30/17 12:29 11/30/17 08:40 20 MG Prochlorperazine Edisylate (Compazine) 5 mg PACU PRN PRN 11/29/17 07:00 11/29/17 19:54 DC Propofol 20 ml @ As Directed STK-MED ONCE 11/29/17 13:54 11/29/17 13:55 DC Ringer's Solution 1,000 ml @ 30 mls/hr Q24H 11/29/17 07:00 11/29/17 18:59 DC Senna/Docusate Sodium (Senna Plus) 1 tab DAILY 11/30/17 09:00 11/30/17 08:40 1 TAB Sodium Chloride 1,000 ml @ 400 mls/hr Q2H30M PRN 11/29/17 07:20 11/29/17 19:19 DC Tramadol HCl (Ultram) 50 mg PRN Q6HRS PRN 11/26/17 14:45 11/30/17 08:40 50 MG Vancomycin HCl (Vanco Per Pharmacy) 1 each PRN DAILY PRN 11/23/17 13:15 11/29/17 09:49 DC 11/28/17 15:13 1 EACH Vancomycin HCl (Vancomycin Random Level) 1 each 1X ONCE 11/24/17 06:00 11/24/17 06:01 DC 11/24/17 06:00 1 EACH Vancomycin HCl 500 mg/Sodium Chloride 100 ml @ 100 mls/hr QTUTHSA 11/26/17 16:00 11/29/17 09:49 DC 11/26/17 16:00 100 MLS/HR Vancomycin HCl 2 gm/Sodium Chloride 500 ml @ 250 mls/hr 1X ONCE 11/23/17 15:00 11/23/17 16:59 DC 11/23/17 16:15 250 MLS/HR Labs: Lab Laboratory Tests Test 11/29/17 13:47 11/29/17 15:24 11/29/17 16:39 11/29/17 21:19 Glucose (Fingerstick) 86 mg/dL (70-99) 93 mg/dL (70-99) 129 mg/dL (70-99) 140 mg/dL (70-99) Test 11/30/17 07:16 Glucose (Fingerstick) 95 mg/dL (70-99) Micro RUN DATE: 11/26/17 PAGE 1 RUN TIME: 68[facility] [address] [place] [address] Demarcus Galo M.D., Shipping Inspector PATIENT: HANNY LIVE ACCT: [id number] LOC: [address] [place] [address] U : [id number] AGE/SX: 52/M ROOM: 418 REG : 11/22/[address]: IMANI KERNS : 1965 BED: 1 DIS : STATUS: ADM IN TLOC: SPEC #: [id number] JAN: 11/23/17 STATUS: RES REQ #: [id number] RECD: 11/23/[address]: YANIRA GOMEZ MD SOURCE: TOE ENTR: 11/23/[address]: IMANI KERNS MD [facility]: RT DAJUAN RIVERA MD, ARCHANA MD NO PCP VANI, JOHN N MD ORDERED: JUMA/CONI/TAJ Procedure Result ANAEROBIC-AEROBIC CULTURE Preliminary Preliminary report ANAEROBIC RES 1 Preliminary Comment No anaerobes recovered in 24 hours. AEROBIC CULT Final Final report AEROBIC RES 1 Final Staphylococcus aureus 4+ Based on susceptibility to oxacillin this isolate would be susceptible to: * Beta-lactam/beta-lactamase inhibitor combinations; such as: Amoxicillin-clavulanic acid Ampicillin-sulbactam * Antistaphylococcal cephems; such as: Cefaclor Cefuroxime * Antistaphylococcal carbapenems; such as: Imipenem Meropenem Most isolates of Staphylococcus sp. produce a beta- lactamase enzyme rendering them resistant to penicillin. Please contact the laboratory if penicillin is being considered for therapy. AEROBIC RES 2 Final Comment CONTINUED ON NEXT PAGE RUN DATE: 11/26/17 PAGE 2 RUN TIME: [facility] [address] [place] [address] Demarcus Galo M.D., Shipping Inspector SPEC: [id number] PATIENT: HANNY LIVE [id number] ( Continued) Procedure Result AEROBIC RES 2 Final (continued) Pseudomonas aeruginosa 1+ ANTIMICROBIAL SUSCEPTIBILITY Final Comment S = Susceptible; I = Intermediate; R = Resistant P = Positive; N = Negative MICS are expressed in micrograms per mL Antibiotic RSLT#1 RSLT#2 RSLT#3 RSLT#4 Amikacin S =4 Cefepime S =8 Ceftazidime S =4 Ciprofloxacin R>=8 S<=0.25 Clindamycin R>=8 Erythromycin R>=8 Gentamicin S<=0.5 S =4 Imipenem S<=1 Levofloxacin R>=8 S =1 Linezolid S =2 Meropenem S<=0.25 Moxifloxacin R =4 Oxacillin S =0.5 Piperacillin S =8 Quinupristin/Dalfopristin S =0.5 Rifampin S<=0.5 Tetracycline S<=1 Ticarcillin S =32 Tobramycin S<=1 Trimethoprim/Sulfa S<=10 Vancomycin S<=0.5 GRAM STAIN Final Final report GRAM STAIN RES 1 Final Comment No white blood cells seen. GRAM STAIN RES 2 Final Comment CONTINUED ON NEXT PAGE RUN DATE: 11/26/17 PAGE 3 RUN TIME: [facility] [address] [place] [address] Demarcus Galo M.D., Shipping Inspector SPEC: [id number] PATIENT: HANNY LIVE [id number] ( Continued) Procedure Result GRAM STAIN RES 2 Final (continued) Few gram positive cocci Performed at: DA - [facility] [address], [place], [place] [id number] Plant Operations Vice President: IRENA Jimenez MD, Phone: [phone] Objective: Assessment: Rt 2nd toe ulcer with infection Swab C/S + PSAE,MSSA Nov 29 2017 S/P Tenotomy, percutaneous, toe, single tendon, deep flexor tendon of second toe Debridement second toe wound 1 cm2, including epidermis, dermis, and subcutaneous cutaneous tissue ESRD Anemia DM HTN Plan: Plan of Care Cont [facility] local care CORRY GOMEZ MD Nov 30, 2017 10:21
[2017-11-30 11:00] VITALS: BP 146/79
--- NOTE | 2017-11-30 11:00 | PDOC ---
Renal-Progress Notes Subjective Notes Notes STABLE History of Present Illness Hx of present illness NO NEW COMPLAINTS Vitals Vitals Vital Signs Date Time Temp Pulse Resp B/P (MAP) Pulse Ox O2 Delivery O2 Flow Rate FiO2 11/30/17 08:40 96 Room Air 11/30/17 08:40 72 160/84 11/30/17 07:00 98.8 18 98.8 11/29/17 15:35 2 Weight Weight [ ] I.O. Intake and Output Intake and Output 11/30/17 07:00 Intake Total 820 ml Output Total 6 ml Balance 814 ml Intake Oral 720 ml Blood Product IV Normal Saline Flush 100 ml Estimated Blood Loss 6 ml # Bowel Movements 1 Labs Labs Laboratory Tests Test 11/29/17 13:47 11/29/17 15:24 11/29/17 16:39 11/29/17 21:19 Glucose (Fingerstick) 86 mg/dL (70-99) 93 mg/dL (70-99) 129 mg/dL (70-99) 140 mg/dL (70-99) Test 11/30/17 07:16 Glucose (Fingerstick) 95 mg/dL (70-99) Micro Micro Microbiology 11/22/17 Blood Culture - Final, Complete NO GROWTH AFTER 5 DAYS 11/23/17 Anaerobic/Aerobic Culture - Final, Complete 11/23/17 Anaerobic Culture Result 1 (SEN) - Final, Complete 11/23/17 Aerobic Culture - Final, Complete 11/23/17 Aerobic Culture Result 1 (SEN) - Final, Complete 11/23/17 Aerobic Culture Result 2 (SEN) - Final, Complete 11/23/17 Antimicrobic Susceptibility - Final, Complete 11/23/17 Gram Stain - Final, Complete 11/23/17 Gram Stain Result 1 (SEN) - Final, Complete 11/23/17 Gram Stain Result 2 (SEN) - Final, Complete Review of Systems Constitutional: yes: alert, oriented Ears/Nose/Throat: Yes: no symptom reported Eyes: Yes: no symptom reported Pulmonary: Yes no symptom reported Cardiovascular: Yes no symptom reported Gastrointestional: Yes: no symptom reported Genitourinary: Yes: no symptom reported Musculoskeletal: Yes: foot pain Skin: Yes no symptom reported Psychiatric/Neurological: Yes: no symptom reported Endocrine: Yes: no symptom reported Physical Exam General Appearance: no apparent distress Skin: warm Respiratory: bilateral CTA Heart: S1S2 Abdomen: soft, bowel sounds present Genitourinary: bladder flat Extremities: pulses present Neurology: alert, oriented Assessment Assessment IMP ESRD DM II HTN ANEMIA TOE WOUND PLAN ANTIBIOTICS HD TOMORROW MARY BETH MONK MD Nov 30, 2017 11:00
--- NOTE | 2017-11-30 12:01 | PDOC ---
PROGRESS NOTES Subjective Subjective Pt states he is doing well this morning and has minimal pain. He would like to go home today. Objective Vital Signs Vital Signs Date Time Temp Pulse Resp B/P (MAP) Pulse Ox O2 Delivery O2 Flow Rate FiO2 11/30/17 11:00 96.4 70 16 146/79 (101) 98 Room Air 96.4 11/29/17 15:35 2 Physical Exam Sitting on side of bed. Postop dressing clean and dry. Calf soft and nontender with negative Eliza's sign. Good plantarflexion and dorsiflexion at foot, with no evidence of neurovascular injury. Peripheral pulses intact. Minimal sensation to light touch at the toes. Labs Laboratory Tests Test 11/28/17 16:09 11/28/17 20:37 11/29/17 05:33 11/29/17 07:50 Glucose (Fingerstick) 181 mg/dL (70-99) 248 mg/dL (70-99) 118 mg/dL (70-99) White Blood Count 10.6 x10^3/uL (4.0-11.0) Red Blood Count 2.30 x10^6/uL (4.30-5.70) Hemoglobin 7.0 g/dL (13.0-17.5) Hematocrit 20.2 % (39.0-53.0) Mean Corpuscular Volume 88 fL (79-100) Mean Corpuscular Hemoglobin 31 pg (25-35) Mean Corpuscular Hemoglobin Concent 35 g/dL (31-37) Red Cell Distribution Width 30.0 % (11.5-14.5) Platelet Count 358 x10^3/uL (140-400) Neutrophils (%) (Auto) 83 % (31-73) Lymphocytes (%) (Auto) 5 % (24-48) Monocytes (%) (Auto) 10 % (0-9) Eosinophils (%) (Auto) 1 % (0-3) Basophils (%) (Auto) 0 % (0-3) Neutrophils # (Auto) 8.8 x10^3uL (1.8-7.7) Lymphocytes # (Auto) 0.5 x10^3/uL (1.0-4.8) Monocytes # (Auto) 1.1 x10^3/uL (0.0-1.1) Eosinophils # (Auto) 0.1 x10^3/uL (0.0-0.7) Basophils # (Auto) 0.0 x10^3/uL (0.0-0.2) Sodium Level 136 mmol/L (136-145) Potassium Level 4.5 mmol/L (3.5-5.1) Chloride Level 100 mmol/L (98-107) Carbon Dioxide Level 24 mmol/L (21-32) Anion Gap 12 (6-14) Blood Urea Nitrogen 87 mg/dL (8-26) Creatinine 8.5 mg/dL (0.7-1.3) Estimated GFR (Cockcroft-Gault) 8.0 Glucose Level 135 mg/dL (70-99) Calcium Level 7.4 mg/dL (8.5-10.1) Test 11/29/17 13:47 11/29/17 15:24 11/29/17 16:39 11/29/17 21:19 Glucose (Fingerstick) 86 mg/dL (70-99) 93 mg/dL (70-99) 129 mg/dL (70-99) 140 mg/dL (70-99) Test 11/30/17 07:16 11/30/17 11:13 Glucose (Fingerstick) 95 mg/dL (70-99) 190 mg/dL (70-99) Laboratory Tests Test 11/29/17 13:47 11/29/17 15:24 11/29/17 16:39 11/29/17 21:19 Glucose (Fingerstick) 86 mg/dL (70-99) 93 mg/dL (70-99) 129 mg/dL (70-99) 140 mg/dL (70-99) Test 11/30/17 07:16 11/30/17 11:13 Glucose (Fingerstick) 95 mg/dL (70-99) 190 mg/dL (70-99) Assessment Assessment POD #1 right second toe flexor tenotomy and ulcer debridement Plan Plan of Care Wound care was consulted yesterday for postoperative wound care recommendations. He states his mother is going to bring his half-shoe to him today. He may WBAT with the half-shoe intact. From an ortho standpoint, he may be discharged today after he is seen by wound care. Followup with our office in 2 weeks. NATALYA NOLASCO Nov 30, 2017 12:01
[2017-11-30 15:00] VITALS: BP 158/79
--- NOTE | 2017-11-30 15:16 | PDOC ---
PROGRESS NOTES Chief Complaint Chief Complaint CC: Anemia (symptomatic) ESRD Small toe wound with hammer toe and ulcer DMII Obesity HTN Mild chronic diastolic CHF Weakness and debility, acquired Gout History of Present Illness History of Present Illness Pt. seen and examined Pt. awake and oriented Pt.'s affect good VSS DW social work concerning insurance issues Pt. on dialysis 1x/wk Pt. states desire for discharge Vitals Vitals Vital Signs Date Time Temp Pulse Resp B/P (MAP) Pulse Ox O2 Delivery O2 Flow Rate FiO2 11/30/17 15:00 97.9 83 16 158/79 (105) 98 Room Air 97.9 11/29/17 15:35 2 Physical Exam Physical Exam GENERAL: Alert, oriented gentleman, not in distress. HEENT: NAD. NECK: Supple, no JVP, no lymphadenopathy. LUNGS: Clear. HEART: S1 and S2 regular. ABDOMEN: Benign. EXTREMITIES: No edema or cyanosis. The patient does have a nicely healed TMA on the left side. Right big toe amputation is unremarkable. Second toe is a hammertoe where the distal part of the toe bends and touches the ground where he has an ulcer and there is a purulent drainage. The depth of the ulcer cannot be judged as it is a small ulcer, but simone pus is coming out. There is another ulcer on the plantar surface of the toe, which has healthy granulation tissue. Dorsalis pedis is palpable. NEUROLOGICAL: The patient is neurologically intact. General: Alert, Oriented X3, Cooperative, No acute distress Heart: Regular rate, Normal S1, Normal S2 Lungs: Clear, Wheezing Abdomen: Soft Extremities: No clubbing, No cyanosis, Normal pulses Skin: No rashes, Other (left foot TMA and right great toe amputation incisions are well-healed. There is a 1cm x 1cm wound on the tip of the right second toe. There is no active drainage at this time and no foul smell. There is a smaller wound distal to this with healthy, pink granulation tissue. There is no tenderness to palpation of the foot or toe. No erythema or warmth. Dorsalis pedis and posterior tibialis pulses are palpable, bilaterally. Diminished sensation due to chronic peripheral neuropathy. ) Labs LABS Laboratory Tests Test 11/29/17 15:24 11/29/17 16:39 11/29/17 21:19 11/30/17 07:16 Glucose (Fingerstick) 93 mg/dL (70-99) 129 mg/dL (70-99) 140 mg/dL (70-99) 95 mg/dL (70-99) Test 11/30/17 11:13 Glucose (Fingerstick) 190 mg/dL (70-99) Review of Systems Review of Systems Pt. denies pain Pt. denies weakness Assessment and Plan Assessmemt and Plan CC: Anemia (symptomatic) ESRD Small toe wound with hammer toe and ulcer DMII Obesity HTN Mild chronic diastolic CHF Weakness and debility, acquired Gout Assessment: Anemia (symptomatic) ESRD Small toe wound with hammer toe and ulcer DMII Obesity HTN Mild chronic diastolic CHF Weakness and debility, acquired Gout Plan: Pt. discharged to home Continue home meds Continue current diet Fu w/ nephrology if necessary; appreciate nephrology input Continue monitoring toe wound Comment Review of Relevant I have reviewed the following items donna (where applicable) has been applied. Labs Laboratory Tests Test 11/28/17 16:09 11/28/17 20:37 11/29/17 05:33 11/29/17 07:50 Glucose (Fingerstick) 181 mg/dL (70-99) 248 mg/dL (70-99) 118 mg/dL (70-99) White Blood Count 10.6 x10^3/uL (4.0-11.0) Red Blood Count 2.30 x10^6/uL (4.30-5.70) Hemoglobin 7.0 g/dL (13.0-17.5) Hematocrit 20.2 % (39.0-53.0) Mean Corpuscular Volume 88 fL (79-100) Mean Corpuscular Hemoglobin 31 pg (25-35) Mean Corpuscular Hemoglobin Concent 35 g/dL (31-37) Red Cell Distribution Width 30.0 % (11.5-14.5) Platelet Count 358 x10^3/uL (140-400) Neutrophils (%) (Auto) 83 % (31-73) Lymphocytes (%) (Auto) 5 % (24-48) Monocytes (%) (Auto) 10 % (0-9) Eosinophils (%) (Auto) 1 % (0-3) Basophils (%) (Auto) 0 % (0-3) Neutrophils # (Auto) 8.8 x10^3uL (1.8-7.7) Lymphocytes # (Auto) 0.5 x10^3/uL (1.0-4.8) Monocytes # (Auto) 1.1 x10^3/uL (0.0-1.1) Eosinophils # (Auto) 0.1 x10^3/uL (0.0-0.7) Basophils # (Auto) 0.0 x10^3/uL (0.0-0.2) Sodium Level 136 mmol/L (136-145) Potassium Level 4.5 mmol/L (3.5-5.1) Chloride Level 100 mmol/L (98-107) Carbon Dioxide Level 24 mmol/L (21-32) Anion Gap 12 (6-14) Blood Urea Nitrogen 87 mg/dL (8-26) Creatinine 8.5 mg/dL (0.7-1.3) Estimated GFR (Cockcroft-Gault) 8.0 Glucose Level 135 mg/dL (70-99) Calcium Level 7.4 mg/dL (8.5-10.1) Test 11/29/17 13:47 11/29/17 15:24 11/29/17 16:39 11/29/17 21:19 Glucose (Fingerstick) 86 mg/dL (70-99) 93 mg/dL (70-99) 129 mg/dL (70-99) 140 mg/dL (70-99) Test 11/30/17 07:16 11/30/17 11:13 Glucose (Fingerstick) 95 mg/dL (70-99) 190 mg/dL (70-99) Laboratory Tests Test 11/29/17 15:24 11/29/17 16:39 11/29/17 21:19 11/30/17 07:16 Glucose (Fingerstick) 93 mg/dL (70-99) 129 mg/dL (70-99) 140 mg/dL (70-99) 95 mg/dL (70-99) Test 11/30/17 11:13 Glucose (Fingerstick) 190 mg/dL (70-99) Microbiology 11/22/17 Blood Culture - Final, Complete NO GROWTH AFTER 5 DAYS 11/23/17 Anaerobic/Aerobic Culture - Final, Complete 11/23/17 Anaerobic Culture Result 1 (SEN) - Final, Complete 11/23/17 Aerobic Culture - Final, Complete 11/23/17 Aerobic Culture Result 1 (SEN) - Final, Complete 11/23/17 Aerobic Culture Result 2 (SEN) - Final, Complete 11/23/17 Antimicrobic Susceptibility - Final, Complete 11/23/17 Gram Stain - Final, Complete 11/23/17 Gram Stain Result 1 (SEN) - Final, Complete 11/23/17 Gram Stain Result 2 (SEN) - Final, Complete Medications Current Medications Ondansetron HCl (Zofran) 4 mg PRN Q8HRS PRN IV NAUSEA/VOMITING 1ST CHOICE; Start 11/23/17 at 00:30; Stop 11/24/17 at 00:29; Status DC Morphine Sulfate (Morphine Sulfate) 4 mg PRN Q2HR PRN IV SEVERE PAIN; Start at 00:30; Stop 11/24/17 at 00:29; Status DC Ascorbic Acid (Vitamin C) 500 mg DAILY PO Last administered on 11/30/17 08:40 ; Start 11/23/17 at 09:00 Atorvastatin Calcium (Lipitor) 20 mg QHS PO Last administered on 11/29/17at 21: 45; Start 11/23/17 at 21:00 Ferrous Sulfate (Feosol) 325 mg BID PO Last administered on 11/30/17 08:40; Start 11/23/17 at 09:00 Folic Acid (Folic Acid) 1 mg DAILY PO Last administered on 11/30/17 08:40; Start 11/23/17 at 09:00 Furosemide (Lasix) 80 mg BID94 PO Last administered on 11/30/17 08:39; Start 11/23/17 at 09:00 Carvedilol (Coreg) 50 mg BIDWMEALS PO Last administered on 11/30/17 08:40; Start 11/23/17 at 08:00 Nifedipine (Procardia Xl) 60 mg DAILY PO Last administered on 11/30/17 08:39; Start 11/23/17 at 09:00 Calcium Acetate (Phoslo) 1,334 mg TIDWMEALS PO Last administered on 11/30/17 12:21; Start 11/23/17 at 08:00 Vancomycin HCl (Vanco Per Pharmacy) 1 each PRN DAILY PRN MC SEE COMMENTS Last administered on 11/28/17at 15:13; Start 11/23/17 at 13:15; Stop 11/29/17 at 09:49 ; Status DC Piperacillin Sod/ Tazobactam Sod 2.25 gm/Sodium Chloride 50 ml @ 100 mls/hr Q8HRS IV Last administered on 11/30/17at 14:41; Start 11/23/17 at 14:00 Vancomycin HCl 2 gm/Sodium Chloride 500 ml @ 250 mls/hr 1X ONCE IV Last administered on 11/23/17at 16:15; Start 11/23/17 at 15:00; Stop 11/23/17 at 16:59 ; Status DC Vancomycin HCl (Vancomycin Random Level) 1 each 1X ONCE MC Last administered on 11/24/17at 06:00; Start 11/24/17 at 06:00; Stop 11/24/17 at 06:01; Status DC Sodium Chloride 1,000 ml @ 1,000 mls/hr Q1H PRN IV hypotension; Start 11/24/17 at 11:00; Stop 11/24/17 at 18:00; Status DC Albumin Human 200 ml @ 200 mls/hr 1X PRN PRN IV Hypotension; Start 11/24/17 at 11:00; Stop 11/24/17 at 16:59; Status DC Acetaminophen (Tylenol) 500 mg 1X PRN PRN PO MILD PAIN / TEMP; Start 11/24/17 at 11:00; Stop 11/24/17 at 18:00; Status DC Diphenhydramine HCl (Benadryl) 25 mg 1X PRN PRN IV ITCHING; Start 11/24/17 at 11:00; Stop 11/24/17 at 18:00; Status DC Diphenhydramine HCl (Benadryl) 25 mg 1X PRN PRN IV ITCHING; Start 11/24/17 at 11:00; Stop 11/24/17 at 18:00; Status DC Labetalol HCl (Normodyne Iv Push) 10 mg PRN Q1HR PRN IVP SBP > 180; Start 11/24 at 11:00; Stop 11/24/17 at 18:00; Status DC Clonidine HCl (Catapres) 0.1 mg 1X PRN PRN PO SBP > 180; Start 11/24/17 at 11: 00; Stop 11/24/17 at 18:00; Status DC Sodium Chloride 1,000 ml @ 400 mls/hr Q2H30M PRN IV PATENCY; Start 11/24/17 at 11:00; Stop 11/24/17 at 18:00; Status DC Info (PHARMACY MONITORING -- do not chart) 1 each PRN DAILY PRN MC SEE COMMENTS ; Start 11/24/17 at 11:00; Status Cancel Vancomycin HCl 500 mg/Sodium Chloride 100 ml @ 100 mls/hr [id number] IV Last administered on 11/24/17at 17:06; Start 11/24/17 at 16:00; Stop 11/26/17 at 13:15 ; Status DC Lactobacillus Rhamnosus (Culturelle) 1 cap BID PO Last administered on at 08:38; Start 11/24/17 at 21:00 Oxycodone/ Acetaminophen (Percocet 5/325) 1 tab PRN Q4HRS PRN PO SEVERE PAIN 1ST CHOICE Last administered on 11/26/17at 20:51; Start 11/25/17 at 03:30 Heparin Sodium (Porcine) (Heparin Sq) 5,000 unit Q12HR SQ Last administered on 11/30/17at 08:42; Start 11/25/17 at 10:00 Sodium Chloride 1,000 ml @ 1,000 mls/hr Q1H PRN IV hypotension; Start 11/26/17 at 07:56; Stop 11/26/17 at 13:55; Status DC Sodium Chloride 1,000 ml @ 400 mls/hr Q2H30M PRN IV PATENCY; Start 11/26/17 at 07:56; Stop 11/26/17 at 19:55; Status DC Info (PHARMACY MONITORING -- do not chart) 1 each PRN DAILY PRN MC SEE COMMENTS ; Start 11/26/17 at 08:00; Stop 11/26/17 at 08:03; Status DC Info (PHARMACY MONITORING -- do not chart) 1 each PRN DAILY PRN MC SEE COMMENTS ; Start 11/26/17 at 08:00; Stop 11/26/17 at 08:03; Status DC Diclofenac Sodium (Voltaren) 1 rowan BID TP Last administered on 11/30/17at 08:41 ; Start 11/26/17 at 10:45 Vancomycin HCl 500 mg/Sodium Chloride 100 ml @ 100 mls/hr QTUTHSA IV Last administered on 11/26/17at 16:00; Start 11/26/17 at 16:00; Stop 11/29/17 at 09:49 ; Status DC Acetaminophen (Tylenol) 650 mg PRN Q6HRS PRN PO FEVER; Start 11/26/17 at 14:45 Ondansetron HCl (Zofran) 4 mg PRN Q6HRS PRN IV NAUSEA/VOMITING 1ST CHOICE; Start 11/26/17 at 14:45 Morphine Sulfate (Morphine Sulfate) 2 mg PRN Q2HR PRN IV MODERATE TO SEVERE PAIN; Start 11/26/17 at 14:45 Tramadol HCl (Ultram) 50 mg PRN Q6HRS PRN PO MILD TO MODERATE PAIN Last administered on 11/30/17at 14:43; Start 11/26/17 at 14:45 Docusate Sodium (Colace) 100 mg PRN DAILY PRN PO CONSTIPATION 1ST CHOICE; Start 11/26/17 at 14:45 Insulin Human Lispro (HumaLOG) 0-9 UNITS TIDWMEALS SQ Last administered on 11/30at 12:28; Start 11/27/17 at 17:00 Dextrose (Dextrose 50%-Water Syringe) 12.5 gm PRN Q15MIN PRN IV SEE COMMENTS; Start 11/27/17 at 12:30 Prednisone (Prednisone) 20 mg DAILY PO Last administered on 11/30/17at 08:40; Start 11/27/17 at 12:30; Stop 11/30/17 at 12:29; Status DC Darbepoetin Ken (Aranesp) 60 mcg WEEKLYHS SQ Last administered on 11/28/17at 20 :51; Start 11/28/17 at 21:00 Ondansetron HCl (Zofran) 4 mg PRN Q6HRS PRN IV NAUSEA/VOMITING; Start 11/29/17 at 07:00; Stop 11/29/17 at 19:54; Status DC Fentanyl Citrate (Fentanyl 2ml Vial) 25 mcg PRN Q5MIN PRN IV MILD PAIN; Start 11/29/17 at 07:00; Stop 11/29/17 at 19:54; Status DC Fentanyl Citrate (Fentanyl 2ml Vial) 50 mcg PRN Q5MIN PRN IV MODERATE TO SEVERE PAIN; Start 11/29/17 at 07:00; Stop 11/29/17 at 19:54; Status DC Morphine Sulfate (Morphine Sulfate) 1 mg PRN Q10MIN PRN IV SEVERE PAIN; Start 11/29/17 at 07:00; Stop 11/29/17 at 19:54; Status DC Ringer's Solution 1,000 ml @ 30 mls/hr Q24H IV ; Start 11/29/17 at 07:00; Stop 11/29/17 at 18:59; Status DC Lidocaine HCl (Xylocaine-Mpf 1% 2ml Vial) 2 ml PRN 1X PRN ID IV START; Start at 07:00; Stop 11/29/17 at 19:54; Status DC Hydromorphone HCl (Dilaudid) 0.5 mg PRN Q10MIN PRN IV SEV PAIN, Second choice; Start 11/29/17 at 07:00; Stop 11/29/17 at 19:54; Status DC Prochlorperazine Edisylate (Compazine) 5 mg PACU PRN PRN IV NAUSEA, MRX1; Start 11/29/17 at 07:00; Stop 11/29/17 at 19:54; Status DC Sodium Chloride 1,000 ml @ 1,000 mls/hr Q1H PRN IV hypotension; Start 11/29/17 at 07:20; Stop 11/29/17 at 13:19; Status DC Labetalol HCl (Normodyne Iv Push) 10 mg PRN Q1HR PRN IVP SBP > 180; Start 11/29 at 07:30; Stop 11/30/17 at 07:29; Status DC Sodium Chloride 1,000 ml @ 400 mls/hr Q2H30M PRN IV PATENCY; Start 11/29/17 at 07:20; Stop 11/29/17 at 19:19; Status DC Info (PHARMACY MONITORING -- do not chart) 1 each PRN DAILY PRN MC SEE COMMENTS ; Start 11/29/17 at 07:30 Info (PHARMACY MONITORING -- do not chart) 1 each PRN DAILY PRN MC SEE COMMENTS ; Start 11/29/17 at 07:30; Status UNV Propofol 20 ml @ As Directed STK-MED ONCE IV ; Start 11/29/17 at 13:54; Stop at 13:55; Status DC Fentanyl Citrate (Fentanyl 2ml Vial) 100 mcg STK-MED ONCE .ROUTE ; Start at 13:54; Stop 11/29/17 at 13:55; Status DC Midazolam HCl (Versed) 2 mg STK-MED ONCE .ROUTE ; Start 11/29/17 at 13:55; Stop 11/29/17 at 13:56; Status DC Bupivacaine HCl (Sensorcaine Mpf 0.25%) 30 ml STK-MED ONCE .ROUTE Last administered on 11/29/17at 15:04; Start 11/29/17 at 13:40; Stop 11/29/17 at 14:40 ; Status DC Oxycodone HCl (Roxicodone) 5 mg PRN Q3HRS PRN PO SEVERE PAIN 2ND CHOICE; Start 11/29/17 at 15:30 Senna/Docusate Sodium (Senna Plus) 1 tab DAILY PO Last administered on at 08:40; Start 11/30/17 at 09:00 Polyethylene Glycol (miraLAX PACKET) 17 gm PRN DAILY PRN PO CONSTIPATION 2ND CHOICE; Start 11/29/17 at 15:30 Ondansetron HCl (Zofran) 4 mg PRN Q4HRS PRN IV NAUSEA/VOMITING; Start 11/29/17 at 15:30; Stop 11/29/17 at 15:30; Status DC Magnesium Hydroxide (Milk Of Magnesia) 2,400 mg 1X PRN PRN PO CONSTIPATION; Start 11/30/17 at 06:00; Stop 12/01/17 at 05:59; Status Cancel Acetaminophen/ Hydrocodone Bitart (Lortab 7.5/325) 1 tab PRN Q4HRS PRN PO MODERATE-SEVERE PAIN 3RD CHOIC; Start 11/29/17 at 15:30 Dextrose (Dextrose 50%-Water Syringe) 12.5 gm PRN Q15MIN PRN IV SEE COMMENTS; Start 11/29/17 at 15:30; Status UNV Active Scripts Active [Calcium Acetate] 667 MG Capsule 1,334 Mg PO TIDWMEALS 30 Days Reported Ascorbic Acid 500 Mg Tablet 500 Mg PO Catapres-Tts 1 (Clonidine) 1 Each Patch.tdwk 1 Each TD QTU Lipitor (Atorvastatin Calcium) 20 Mg Tablet 20 Mg PO DAILY Carvedilol 25 Mg Tablet 50 Mg PO BIDWMEALS Vitamin D2 (Ergocalciferol (Vitamin D2)) 50,000 Unit Capsule 50,000 Unit PO QSU Ferrous Sulfate 325 Mg Tablet 325 Mg PO BID Folic Acid 1 Mg Tablet 1 Mg PO DAILY Procardia Xl (Nifedipine) 60 Mg Tab.er.24 60 Mg PO DAILY Furosemide 80 Mg Tablet 80 Mg PO BID Vitals/I & O Vital Sign - Last 24 Hours 11/29/17 11/29/17 11/29/17 11/29/17 15:20 15:20 15:35 15:50 Temp 98.3 98.3 98.3 98.3 Pulse 84 76 80 Resp 18 16 14 B/P (MAP) 165/74 165/75 168/77 Pulse Ox 97 97 95 O2 Delivery Nasal Cannula Nasal Cannula Nasal Cannula Room Air O2 Flow Rate 2 2 2 11/29/17 11/29/17 11/29/17 11/29/17 16:05 16:30 16:45 17:00 Temp 98.4 98.4 Pulse 80 80 Resp 14 18 B/P (MAP) 166/73 150/80 (103) 142/77 (98) 149/71 (97) Pulse Ox 94 95 O2 Delivery Room Air Room Air 11/29/17 11/29/17 11/29/17 11/29/17 17:04 17:15 17:45 18:29 Temp 97.9 98.0 97.9 98.0 Pulse 80 77 80 Resp 18 20 B/P (MAP) 166/73 139/75 (96) 140/71 (94) 133/77 (95) Pulse Ox 96 97 O2 Delivery Room Air Room Air 11/29/17 11/29/17 11/29/17 11/29/17 19:30 20:54 21:46 23:35 Temp 99.0 98.7 99.0 98.7 Pulse 75 77 Resp 18 18 B/P (MAP) 135/73 (93) 134/77 (96) Pulse Ox 95 94 O2 Delivery Room Air Room Air Room Air Room Air 11/30/17 11/30/17 11/30/17 11/30/17 03:30 07:00 07:40 08:39 Temp 98.9 98.8 98.9 98.8 Pulse 77 72 72 Resp 18 18 B/P (MAP) 134/74 (94) 160/84 (109) 160/84 Pulse Ox 95 96 O2 Delivery Room Air Room Air Room Air 11/30/17 11/30/17 11/30/17/29/18 08:40 08:40 10:00 11:00 Temp 96.4 96.4 Pulse 72 70 Resp 16 B/P (MAP) 160/84 146/79 (101) Pulse Ox 96 96 98 O2 Delivery Room Air Room Air Room Air 11/30/17 11/30/17 14:43 15:00 Temp 97.9 97.9 Pulse 83 Resp 16 B/P (MAP) 158/79 (105) Pulse Ox 98 98 O2 Delivery Room Air Room Air Intake and Output 11/29/17 11/29/17 11/30/17 15:00 23:00 07:00 Intake Total 100 ml 240 ml 480 ml Output Total 6 ml Balance 100 ml 234 ml 480 ml PANKAJ BLANCAS III DO Nov 30, 2017 15:16
--- NOTE | 2017-12-01 18:33 | DS ---
DATE OF DISCHARGE: 11/30/2017 ADMISSION DIAGNOSES: Acute on chronic anemia and toe wound. DISCHARGE DIAGNOSIS: Resolving acute on chronic anemia. HOSPITAL COURSE: The patient is a pleasant 52-year-old male who is well known to our service. He presented with acute on chronic anemia. He has end-stage renal disease and multiple comorbidities. Basically, he was admitted. We transfused him. We did consult Nephrology for dialysis. He also had a toe wound. Dr. Ely Us and Dr. Gino Velasco saw the patient and the patient did get a surgery, which included tenotomy, percutaneous toes single tendon, deep flexor tendon of second toe and debridement of the second toe. Over the next few days, he did better, be discharged home with close outpatient followup. DISPOSITION: Home. ACTIVITY: As tolerated. DIET: Low sodium. MEDICATIONS: Please see MRAD. TOTAL TIME ON DISCHARGE: 36 minutes. PANKAJ BLANCAS DO DR: [email or web address] JOB#: [id number] / [id number]
== END 2017-11-30 17:49 | disposition home or self-care (01) | DRG 623 ==
LOC: ER 21:08 → 4 NORTH 22:26
PROVIDERS: ADMIT Internal Medicine; ATTEND Internal Medicine
PROC: 0JBQ0ZZ Excision of Right Foot Subcutaneous Tissue and Fascia, Open Approach (ICD-10-PCS; 2017-11-29)
PROC: 0LNV0ZZ Release Right Foot Tendon, Open Approach (ICD-10-PCS; 2017-11-29)
PROC: 30233N1 Transfusion of Nonautologous Red Blood Cells into Peripheral Vein, Percutaneous Approach (ICD-10-PCS; principal; 2017-11-29 14:00)
DX: E11.621 Type 2 diabetes mellitus with foot ulcer (principal); I50.32 Chronic diastolic (congestive) heart failure; I13.2 Hypertensive heart and chronic kidney disease with heart failure and with stage 5 chronic kidney disease, or end stage renal disease; N18.6 End stage renal disease; L97.519 Non-pressure chronic ulcer of other part of right foot with unspecified severity; D64.9 Anemia, unspecified; E11.22 Type 2 diabetes mellitus with diabetic chronic kidney disease; K21.9 Gastro-esophageal reflux disease without esophagitis; E66.9 Obesity, unspecified; D63.1 Anemia in chronic kidney disease; E11.42 Type 2 diabetes mellitus with diabetic polyneuropathy; L08.9 Local infection of the skin and subcutaneous tissue, unspecified; M10.9 Gout, unspecified; Z68.31 Body mass index [BMI] 31.0-31.9, adult; Z99.2 Dependence on renal dialysis; Z90.81 Acquired absence of spleen; Z89.412 Acquired absence of left great toe; Z89.411 Acquired absence of right great toe; Z83.3 Family history of diabetes mellitus; Z82.49 Family history of ischemic heart disease and other diseases of the circulatory system
CPT/HCPCS: 36415; 73630; 80048; 80053; 80202; 82962; 83605; 84100; 85007; 85014; 85018; 85025; 85651; 86140; 86850; 86900; 86901; 86920; 87040; 87071; 87075; 87186; 87340; J0881; J1815; J2250; J2543; J2704; J3010; J3370; J3490; J7040; J7512; P9016; 99285-25; A4461

== ENCOUNTER → 2017-12-14 | Outpatient (CLI) | payer OTHER ==
[2017-11-30 15:00] VITALS: BP 158/79
[2017-12-14 11:47] LABS: BASO # 0.1 x10^3/uL (0.0-0.2); BASO % 1 % (0-3); EOS # 0.3 x10^3/uL (0.0-0.7); EOS % 5 % (0-3); HEMATOCRIT 23.6 % (39.0-53.0); HEMOGLOBIN 8.3 g/dL (13.0-17.5); LYMPH # 0.5 x10^3/uL (1.0-4.8); LYMPH % 7 % (24-48); MEAN CORPUSCULAR HEMOGLOBIN 31 pg (25-35); MEAN CORPUSCULAR HGB CONC 35 g/dL (31-37); MEAN CORPUSCULAR VOLUME 89 fL (79-100); MONO # 0.6 x10^3/uL (0.0-1.1); MONO % 8 % (0-9); NEUT # 5.8 x10^3uL (1.8-7.7); NEUT % 80 % (31-73); PLATELET COUNT 299 x10^3/uL (140-400); RED BLOOD COUNT 2.66 x10^6/uL (4.30-5.70); RED CELL DISTRIBUTION WIDTH 17.6 % (11.5-14.5); WHITE BLOOD COUNT 7.3 x10^3/uL (4.0-11.0)
[2017-12-14 12:00] LABS: ALBUMIN 3.5 g/dL (3.4-5.0); CALCIUM 8.2 mg/dL (8.5-10.1); CREATININE 5.2 mg/dL (0.7-1.3); GFR 14.2; PHOSPHORUS 4.8 mg/dL (2.6-4.7); POTASSIUM 4.3 mmol/L (3.5-5.1)
[2017-12-16 19:16] LABS: ALBUM 3.9 g/dL (2.9-4.4); ALPHA 1 0.3 g/dL (0.0-0.4); ALPHA 2 0.5 g/dL (0.4-1.0); BETA 1.2 g/dL (0.7-1.3); GAMMA 2.3 g/dL (0.4-1.8); PROTEIN TOTAL 8.2 g/dL (6.0-8.5); SPEP AG RATIO 0.9 (0.7-1.7)
== END | disposition home or self-care (01) ==
LOC: PMGWOUND 10:43
PROVIDERS: ATTEND Emergency Medicine Undersea and Hyperbaric Medicine
DX: E11.621 Type 2 diabetes mellitus with foot ulcer (principal); L97.512 Non-pressure chronic ulcer of other part of right foot with fat layer exposed; I13.2 Hypertensive heart and chronic kidney disease with heart failure and with stage 5 chronic kidney disease, or end stage renal disease; E11.22 Type 2 diabetes mellitus with diabetic chronic kidney disease; N18.6 End stage renal disease; I50.32 Chronic diastolic (congestive) heart failure; K21.9 Gastro-esophageal reflux disease without esophagitis; M10.9 Gout, unspecified; E11.42 Type 2 diabetes mellitus with diabetic polyneuropathy; E66.9 Obesity, unspecified; Z68.32 Body mass index [BMI] 32.0-32.9, adult; Z99.2 Dependence on renal dialysis; Z79.4 Long term (current) use of insulin
CPT/HCPCS: 36415; 80069; 84165; 85025; 85651; 97597

== ENCOUNTER → 2017-12-21 | Outpatient (CLI) | payer OTHER ==
[2017-11-30 15:00] VITALS: BP 158/79
== END | disposition home or self-care (01) ==
LOC: PMGWOUND 10:40
PROVIDERS: ATTEND Preventive Medicine Undersea and Hyperbaric Medicine
DX: E11.621 Type 2 diabetes mellitus with foot ulcer (principal); L97.512 Non-pressure chronic ulcer of other part of right foot with fat layer exposed; I13.2 Hypertensive heart and chronic kidney disease with heart failure and with stage 5 chronic kidney disease, or end stage renal disease; E11.22 Type 2 diabetes mellitus with diabetic chronic kidney disease; N18.6 End stage renal disease; I50.32 Chronic diastolic (congestive) heart failure; E11.42 Type 2 diabetes mellitus with diabetic polyneuropathy; L84 Corns and callosities; M10.9 Gout, unspecified; K21.9 Gastro-esophageal reflux disease without esophagitis; E66.9 Obesity, unspecified; Z68.32 Body mass index [BMI] 32.0-32.9, adult; Z99.2 Dependence on renal dialysis; Z79.4 Long term (current) use of insulin
CPT/HCPCS: 99213

== ENCOUNTER → 2017-12-21 | Outpatient (CLI) | payer OTHER ==
[2017-11-30 15:00] VITALS: BP 158/79
--- NOTE | 2017-12-21 11:58 | RAD ---
MRI study of the right foot without contrast Clinical indications: Nonhealing ulcer of the tip of the right second digit for 2 months. Recent debridement. TECHNIQUE: Noncontrast MRI sequences of the right midfoot and forefoot were performed in all 3 planes. COMPARISON: No previous MRI study. Radiographic and the right foot dated November 22, 2017. FINDINGS: There has been amputation of the first digit at the level of the distal first metatarsal bone. There is T2 bone marrow edema of the distal first metatarsal stump with mild T1 marrow signal abnormality. There is loss of the cortex of the distal stump. Findings are consistent with osteomyelitis. In addition, there is abnormal T1 signal and T2 bone marrow edema of the lateral sesamoid bone consistent with osteomyelitis. There is associated abnormal soft tissue thickening of the overlying soft tissues of the stump. There are bubbles of air present here. This may be seen with soft tissue infection with gas-forming organisms or could be related to skin wound. There is soft tissue abnormality of the second digit with edema. There is T1 marrow signal abnormality and erosion of the second distal phalanx consistent with osteomyelitis. No fracture line is evident. There is dorsal subcutaneous soft tissue edema consistent with cellulitis. There is deep plantar muscle edema consistent with myositis. There is minimal tenosynovitis of the flexor tendon of the second digit. IMPRESSION: Osteomyelitis of the distal stump of the first metatarsal bone with overlying soft tissue edema and bubbles of air. Bubbles of air may be secondary to infection with gas-forming organism or may be secondary to a skin wound. In addition, there is osteomyelitis of the lateral sesamoid bone. Soft tissue edema of the second digit with osteomyelitis of the second distal phalanx. Minimal tenosynovitis of the flexor tendon of the second digit is seen. Dorsal subcutaneous soft tissue edema is seen consistent with cellulitis and there is myositis of the deep plantar muscles of the right foot. Electronically signed by: Dontrell Infante MD (12/21/2017 11:55 AM) [id number]
== END | disposition home or self-care (01) ==
LOC: MRI 08:32
PROVIDERS: ATTEND Emergency Medicine Undersea and Hyperbaric Medicine
DX: E11.621 Type 2 diabetes mellitus with foot ulcer (principal); L97.512 Non-pressure chronic ulcer of other part of right foot with fat layer exposed; I13.2 Hypertensive heart and chronic kidney disease with heart failure and with stage 5 chronic kidney disease, or end stage renal disease; E11.22 Type 2 diabetes mellitus with diabetic chronic kidney disease; N18.6 End stage renal disease; I50.32 Chronic diastolic (congestive) heart failure; E11.42 Type 2 diabetes mellitus with diabetic polyneuropathy; M10.9 Gout, unspecified; K21.9 Gastro-esophageal reflux disease without esophagitis; E66.9 Obesity, unspecified; Z68.32 Body mass index [BMI] 32.0-32.9, adult; Z99.2 Dependence on renal dialysis; Z79.4 Long term (current) use of insulin
CPT/HCPCS: 73718; 99213

== ENCOUNTER → 2017-12-28 | Outpatient (CLI) | payer OTHER ==
[2017-11-30 15:00] VITALS: BP 158/79
== END | disposition home or self-care (01) ==
LOC: PMGWOUND 10:52
PROVIDERS: ATTEND Preventive Medicine Undersea and Hyperbaric Medicine
DX: E11.621 Type 2 diabetes mellitus with foot ulcer (principal); L97.512 Non-pressure chronic ulcer of other part of right foot with fat layer exposed; I13.2 Hypertensive heart and chronic kidney disease with heart failure and with stage 5 chronic kidney disease, or end stage renal disease; E11.22 Type 2 diabetes mellitus with diabetic chronic kidney disease; N18.6 End stage renal disease; I50.32 Chronic diastolic (congestive) heart failure; E11.42 Type 2 diabetes mellitus with diabetic polyneuropathy; L84 Corns and callosities; K21.9 Gastro-esophageal reflux disease without esophagitis; M10.9 Gout, unspecified; E66.9 Obesity, unspecified; Z68.32 Body mass index [BMI] 32.0-32.9, adult; Z99.2 Dependence on renal dialysis; Z79.4 Long term (current) use of insulin
CPT/HCPCS: 99212

== ENCOUNTER 2018-03-02 16:27 | Emergency (ER) | payer OTHER ==
[~2018-03-02] VITALS: Ht 175.3 cm; Wt 94.3 kg
--- NOTE | 2018-03-02 17:18 | EKG ---
[facility] [address] [place] [address] Test Date: 2018-03-02 Test Time: 16:34:15 Pat Name: HANNY LIVE Department: Room: Gender: Male Licensed Weigher: : 1965 Requested By: ANGELLA DYKES Order Number: [id number] Reading MD: Shane Velez Measurements Intervals Morrison Rate: 72 P: 26 OR: 166 QRS: -15 QRSD: 82 T: 26 QT: 404 QTc: 444 Interpretive Statements SINUS RHYTHM LEFTWARD AXIS Electronically Signed On 03-06-2018 8:41:46 CAMP ASSISTANT by Shane Velez
--- NOTE | 2018-03-02 17:31 | PHYS DOC ---
Past Medical History Past Medical History: Anemia, Diabetes-Type II, Renal Disease Additional Past Medical Histor: CATARACTS, NEUROPATHY, ERECTILE DYSFUNCTION, ELLIPTOCYTOSIS Past Surgical History: Splenectomy, Other Additional Past Surgical Histo: DIALYSIS SHUNT RIGHT CHEST, R GREAT TOE AMP, PARTIAL L FOOT AMP Alcohol Use: None Drug Use: None Adult General Chief Complaint Chief Complaint: DIZZY/LIGHT HEADED [facility] HPI Patient is a 52 year old male with a history of ESRD on dialysis secondary to DM type 2 presents with a complaint of lightheadedness during dialysis session this afternoon. Pt reports that during his dialysis session this afternoon he was not administered an anti-clotting medication, which he normally receives, and as a result some of his blood clotted while in the machine. Because of this the pt was unable to have a portion of his blood returned and instead received IV fluids for replacement. Following this, the patient stood up from his chair going to leave dialysis and he became lightheaded. He was then brought to the ED. There was no fall or LOC. He has been undergoing dialysis treatment since August of 2017, Tuesdays and . He does still make a small amount of urine. Pt denies any recent acute sickness. He also denies fevers, chills, CP, SOB, dysuria, abd pain, and any other Sx at this time. Review of Systems Review of Systems Constitutional: Denies fever or chills [] Eyes: Denies change in visual acuity, redness, or eye pain [] HENT: Denies nasal congestion or sore throat [] Respiratory: Denies cough or shortness of breath [] Cardiovascular: No additional information not addressed in HPI [] GI: Denies abdominal pain, nausea, vomiting, bloody stools or diarrhea [] : Denies dysuria or hematuria [] Musculoskeletal: Denies back pain or joint pain [] Integument: Denies rash or skin lesions [] Neurologic: + lightheadedness. Denies headache, focal weakness or sensory changes [] All other systems were reviewed and found to be within normal limits, except as documented in this note. Allergies Allergies Allergies Coded Allergies Type Severity Reaction Last Updated Verified No Known Drug Allergies 11/29/17 No Physical Exam Physical Exam Constitutional: Well developed, well nourished, no acute distress, non-toxic appearance. HENT: Normocephalic, atraumatic, bilateral external ears normal, oropharynx moist, no oral exudates, nose normal. [] Eyes: PERRLA, EOMI, conjunctiva normal, no discharge. [] Neck: Normal range of motion, no tenderness, supple, no stridor. [] Cardiovascular:Heart rate regular rhythm, no murmur. Lungs & Thorax: Bilateral breath sounds clear to auscultation [] Abdomen: Bowel sounds normal, soft, no tenderness, no masses, no pulsatile masses. [] Skin: Warm, dry, no erythema, no rash. Dialysis port in place at R upper chest wall without erythema. Back: No tenderness, no CVA tenderness. [] Extremities: No tenderness, no cyanosis, no clubbing, ROM intact, no edema. [] Neurologic: Alert and oriented X 3, normal motor function, normal sensory function, no focal deficits noted. CN 2-12 intact grossly bilaterally Psychologic: Affect normal, judgement normal, mood normal. [] Current Patient Data Vital Signs Vital Signs Date Time Temp Pulse Resp B/P (MAP) Pulse Ox O2 Delivery O2 Flow Rate FiO2 03/02/18 18:29 75 14 97 03/02/18 16:27 97.4 137/65 (89) Room Air 97.4 Lab Values Laboratory Tests Test 03/02/18 16:45 White Blood Count 9.6 x10^3/uL (4.0-11.0) Red Blood Count 2.13 x10^6/uL (4.30-5.70) L Hemoglobin 7.3 g/dL (13.0-17.5) L Hematocrit 21.8 % (39.0-53.0) L Mean Corpuscular Volume 102 fL (79-100) H Mean Corpuscular Hemoglobin 34 pg (25-35) Mean Corpuscular Hemoglobin Concent 33 g/dL (31-37) Red Cell Distribution Width 20.9 % (11.5-14.5) H Platelet Count 243 x10^3/uL (140-400) Neutrophils (%) (Auto) 80 % (31-73) H Lymphocytes (%) (Auto) 8 % (24-48) L Monocytes (%) (Auto) 9 % (0-9) Eosinophils (%) (Auto) 3 % (0-3) Basophils (%) (Auto) 1 % (0-3) Neutrophils # (Auto) 7.7 x10^3uL (1.8-7.7) Lymphocytes # (Auto) 0.8 x10^3/uL (1.0-4.8) L Monocytes # (Auto) 0.8 x10^3/uL (0.0-1.1) Eosinophils # (Auto) 0.3 x10^3/uL (0.0-0.7) Basophils # (Auto) 0.0 x10^3/uL (0.0-0.2) Platelet Estimate Adequate (ADEQUATE) Polychromasia Slight Poikilocytosis Mod Anisocytosis Mod Spherocytes Few Tear Drop Cells Occ Ovalocytes Many Helmet Cells Occ Schistocytes Few RBC Morphology Bizarre Forms Few Sodium Level 139 mmol/L (136-145) Potassium Level 4.0 mmol/L (3.5-5.1) Chloride Level 105 mmol/L (98-107) Carbon Dioxide Level 21 mmol/L (21-32) Anion Gap 13 (6-14) Blood Urea Nitrogen 27 mg/dL (8-26) H Creatinine 3.4 mg/dL (0.7-1.3) H Estimated GFR (Cockcroft-Gault) 23.1 BUN/Creatinine Ratio 8 (6-20) Glucose Level 139 mg/dL (70-99) H Calcium Level 8.0 mg/dL (8.5-10.1) L Total Bilirubin 0.6 mg/dL (0.2-1.0) Aspartate Amino Transferase (AST) 19 U/L (15-37) Alanine Aminotransferase (ALT) 20 U/L (16-63) Alkaline Phosphatase 84 U/L (46-116) Troponin I Quantitative < 0.017 ng/mL (0.000-0.055) Total Protein 8.5 g/dL (6.4-8.2) H Albumin 3.6 g/dL (3.4-5.0) Albumin/Globulin Ratio 0.7 (1.0-1.7) L Laboratory Tests 03/02/18 16:45 Laboratory Tests 03/02/18 16:45 EKG EKG ekg nsr rate 72 no acute ischemic chagnes noted no stemi[] Radiology/Procedures Radiology/Procedures [] Impressions: cxr neg acute Course & Med Decision Making Course & Med Decision Making Pertinent Labs and Imaging studies reviewed. (See chart for details) Assessment: 52 y/o male with a hx of ESRD on dialysis presents with lightheadedness 1. Orthostatic Hypotension 2. Dehydration 3. ESRD on dialysis 4. Diabetes mellitus type 2 Plan: EKG - no ischemia Labs- CBC, CMP UA with reflex CXR -negative acute Orthostatics - negative very likely transietn orthostasis, pt d/c in stable condition bp 140's in er The anemia is actually better than it has been in the past troponin negative Dragon Disclaimer Dragon Disclaimer This electronic medical record was generated, in whole or in part, using a voice recognition dictation system. Departure Departure Impression: Primary Impression: Lightheadedness Disposition: HOME, SELF-CARE Condition: STABLE Referrals: NO PCP (PCP) ANGELLA DYKES MD Mar 02, 2018 17:31
[2018-03-02 18:16] LABS: BASO % 1 % (0-3); EOS # 0.3 x10^3/uL (0.0-0.7); EOS % 3 % (0-3); HEMATOCRIT 21.8 % (39.0-53.0); HEMOGLOBIN 7.3 g/dL (13.0-17.5); LYMPH # 0.8 x10^3/uL (1.0-4.8); LYMPH % 8 % (24-48); MEAN CORPUSCULAR HEMOGLOBIN 34 pg (25-35); MEAN CORPUSCULAR HGB CONC 33 g/dL (31-37); MEAN CORPUSCULAR VOLUME 102 fL (79-100); MONO # 0.8 x10^3/uL (0.0-1.1); MONO % 9 % (0-9); NEUT # 7.7 x10^3uL (1.8-7.7); NEUT % 80 % (31-73); PLATELET COUNT 243 x10^3/uL (140-400); RED BLOOD COUNT 2.13 x10^6/uL (4.30-5.70); RED CELL DISTRIBUTION WIDTH 20.9 % (11.5-14.5); WHITE BLOOD COUNT 9.6 x10^3/uL (4.0-11.0)
[2018-03-02 18:31] LABS: CREATININE 3.4 mg/dL (0.7-1.3); GFR 23.1
[2018-03-02 18:37] LABS: ALBUMIN 3.6 g/dL (3.4-5.0); ALBUMIN/GLOBULIN RATIO 0.7 (1.0-1.7); TOTAL BILIRUBIN 0.6 mg/dL (0.2-1.0); TOTAL PROTEIN 8.5 g/dL (6.4-8.2)
[2018-03-02 19:37] LABS: PLT ESTIMATE ADEQUATE (ADEQUATE); POIKILOCYTOSIS MOD
[2018-03-02 19:38] LABS: ANISOCYTOSIS MOD; OVALOCYTES MANY
[2018-03-02 19:39] LABS: BIZZARE CELLS FEW; HELMET CELLS OCC; POLYCHROMASIA SLIGHT; SCHISTOCYTES FEW
[2018-03-02 19:40] LABS: SPHEROCYTES FEW
[2018-03-02 19:41] LABS: TEAR DROP CELLS OCC
[2018-03-02 19:59] VITALS: BP 152/73
--- NOTE | 2018-03-03 00:23 | RAD ---
AP portable chest radiograph 03/02/2018 Clinical History: Weakness post dialysis. An AP erect portable digital radiograph of the chest was obtained. Comparison study is dated 08/14/2017. A right internal jugular large bore central venous catheter has been placed. The tip of this catheter extends to overlie the superior vena cava. The cardiac silhouette is mildly enlarged. The thoracic aorta is tortuous. No acute pulmonary infiltrate is seen. No pleural effusion or pneumothorax is noted. The osseous structures are unchanged. IMPRESSION: No acute abnormality is seen. Electronically signed by: Alec Samaniego MD (03/03/2018 12:20 AM) [facility]
== END 2018-03-02 20:18 | disposition home or self-care (01) ==
LOC: ER 16:27
DX: R42 Dizziness and giddiness (principal); I95.1 Orthostatic hypotension; E86.0 Dehydration; E11.22 Type 2 diabetes mellitus with diabetic chronic kidney disease; E11.40 Type 2 diabetes mellitus with diabetic neuropathy, unspecified; I12.0 Hypertensive chronic kidney disease with stage 5 chronic kidney disease or end stage renal disease; N18.6 End stage renal disease; Z99.2 Dependence on renal dialysis; Z90.81 Acquired absence of spleen
CPT/HCPCS: 36415; 71045; 80053; 84484; 85025; 93005; 99284-25